=== PATIENT | female | born 1960 | race African-American/Black ===

== ENCOUNTER 2016-07-13 20:02 | Emergency (ER) | payer OTHER ==
[2016-07-13 20:14] VITALS: BP 154/85; BMI 29.7
[2016-07-13] MEDS ORDERED: ACETAMINOPHEN 325 MG TABLET (FP) PO ONE (20:59)
[2016-07-13] MEDS ORDERED: guaiFENesin/CODEINE 10 ML UNIT-DOSE CUPS PO ONE (20:59)
[2016-07-13] MEDS ORDERED: KETOROLAC TROMETHAMINE 60 MG/2 ML VIAL IM ONE (20:59)
--- NOTE | 2016-07-13 20:59 | PDOC ---
History of Present Illness - General Chief Complaint: Respiratory Stated Complaint: FLU LIKE SYMPTOMS Time Seen by Provider: 07/13/16 20:37 History Source: Patient Exam Limitations: No Limitations - History of Present Illness Initial Comments: CHIEF COMPLAINT: 56 y/o febrile female with PMH HTN, NIDDM, CAD with stents c/ o flu like symptoms since yesterday. HISTORY OF PRESENT ILLNESS: The patient states that her roommate came home with the flu 4 days ago. Yesterday at work the patient began having runny nose , body aches, dry cough and chills. Pt states fever started today, as well as posttussive chest discomfort. She denies earache, sore throat, n/v/d, abd pain , back pain. The patient hasn't taken anything for her symptoms because she didn't have anything. 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 Vital signs on arrival are notable for pulse of 96 secondary to temp of 100. REVIEW OF SYSTEMS: GENERAL/CONSTITUTIONAL: + fever/chills. No weakness. No weight change. +body aches HEAD, EYES, EARS, NOSE AND THROAT: No change in vision. No ear pain or discharge. No sore throat. +runny nose CARDIOVASCULAR: +posttussive chest discomfot. No shortness of breath. RESPIRATORY: +dry cough. No cough, wheezing, or hemoptysis. GASTROINTESTINAL: No nausea, vomiting, diarrhea. GENITOURINARY: No dysuria, frequency, or change in urination. MUSCULOSKELETAL: No joint or muscle swelling or pain. No neck or back pain. SKIN: No rash or easy bruising. NEUROLOGIC: No headache, vertigo, loss of consciousness, or loss of sensation. PHYSICAL EXAM: GENERAL: The patient is awake, alert, and fully oriented, non toxic but ill appearing, with congested sounding cough. HEAD: Normal with no signs of trauma. ENT: Pupils equal, round and reactive to light, extraocular movements intact, sclera anicteric, conjunctiva clear. Neck supple. No tonsilar erythema or edema. +nasal congestion. LUNGS: Clear to auscultation bilaterally. Normal excursion. No respiratory distress or use of accessory muscles. CHEST WALL: Reproduction of chest pain with palpation of anterior chest wall. CV: RRR, S1/S2, no MRG. Cap refill < 2 sec. ABDOMEN: Soft, non-distended, non-tender even to deep palpation, no hepatomegaly or splenomegaly, no masses. EXTREMITIES: Normal range of motion, no edema. NEUROLOGICAL: Normal speech, normal gait. CN II-XII grossly intact. PSYCH: Normal mood, normal affect. SKIN: Warm, dry, normal turgor, no rashes or lesions noted. Past History - Past Medical History Allergies/Adverse Reactions: Allergies Allergy/AdvReac Type Severity Reaction Status Date / Time No Known Allergies Allergy Verified 07/13/16 20:08 Home Medications: Ambulatory Orders Amlodipine Besylate [Norvasc -] 10 mg PO DAILY 01/18/12 Lisinopril [Prinivil] 10 mg PO DAILY 01/18/12 Metformin HCl [Glucophage] 1,000 mg PO BID 01/18/12 Aspirin [ASA -] 81 mg PO DAILY 04/24/15 Atorvastatin Ca [Lipitor] 80 mg PO HS 04/24/15 Carvedilol [Coreg -] 6.25 mg PO BID 04/24/15 Clopidogrel Bisulfate [Plavix -] 75 mg PO DAILY 04/24/15 Glipizide Xl [Glucotrol Xl -] 10 mg PO DAILY tab.er.24 04/24/15 Repaglinide [Prandin] 2 mg PO TID 04/24/15 Sennosides [Senna] 17.2 mg PO DAILY PRN 04/24/15 Cephalexin [Keflex] 500 mg PO BID #14 capsule 01/30/16 Meclizine HCl [Antivert -] 25 mg PO TID PRN #30 tablet 02/02/16 Cephalexin Monohydrate [Keflex -] 500 mg PO BID #14 capsule 04/28/16 Guaifenesin AC [Robitussin AC] 10 ml PO TID #1 bottle MDD 30mL 07/13/16 Oseltamivir Phosphate [Tamiflu] 75 mg PO BID #10 capsule 07/13/16 Anemia: No Asthma: No Cardiac Disorders: Yes (stents) Diabetes: Yes GI Disorders: Yes (peptic ulcer) HTN: Yes Hypercholesterolemia: No - Surgical History Abdominal Surgery: No Cardiac Surgery: Yes (stents) - Immunization History Immunization Up to Date: Yes - Psycho/Social/Smoking Cessation Hx Anxiety: No Suicidal Ideation: No Smoking Status: Yes Smoking History: Never smoked Have you smoked in the past 12 months: No Number of Cigarettes Smoked Daily: 0 If you are a former smoker, when did you quit?: 10/2014 Information on smoking cessation initiated: No Hx Alcohol Use: No Drug/Substance Use Hx: No Substance Use Type: None Hx Substance Use Treatment: No *Physical Exam - Vital Signs Last Vital Signs Temp Pulse Resp BP Pulse Ox 100.0 F H 96 H 20 154/85 98 07/13/16 20:08 07/13/16 20:08 07/13/16 20:08 07/13/16 20:08 07/13/16 20:08 Medical Decision Making - Medical Decision Making A/P: 56 y/o febrile female who looks like she has the flu. Plan is as follows: 1. PO tylenol 2. IM toradol 3. Robitussin AC 4. Influenza swab Influenza A - positive Will give first dose of tamiflu in the ER Pt's temp and HR is down Will d/c to home with tamiflu and robitussin AC. Suggested she take tylenol for fever every 4 hours and motrin for body aches every 6 hours, drink plenty of fluids and rest. instructed her to f/u with her doctor within 1 week and return to the ER with any worsening or concerning symptoms. The patient verbalizes understanding of all instructions, has no further questions and is awaiting discharge. *DC/Admit/Observation/Transfer Diagnosis at time of Disposition: Influenza A - Discharge Dispostion Disposition: HOME Condition at time of disposition: Improved - Referrals Referrals: Alvarado Nj MD [Primary Care Provider] - Call tomorrow - Patient Instructions Printed Discharge Instructions: DI for Influenza -- Adult Additional Instructions: Discharge Instructions: -Take 650mg of Tylenol every 4 hours for fever -Take 600mg of Motrin every 6 hours for body aches -Take Tamiflu as prescribed for flu -Drink plenty of fluids and get rest -Follow up with your doctor within 1 week -Return to the ER with any worsening or concerning symptoms - Post Discharge Activity Work/School Note: Back to Work
[2016-07-13] MEDS ORDERED: guaiFENesin/D-METHORPHAN HB 10 ML UNIT-DOSE CUPS ONE (21:03)
[2016-07-13] MEDS ORDERED: ACETAMINOPHEN 325 MG TABLET (FP) ONE (21:03)
[2016-07-13] MEDS ORDERED: KETOROLAC TROMETHAMINE 60 MG/2 ML VIAL ONE (21:03)
[2016-07-13] MEDS ORDERED: guaiFENesin/CODEINE 10 ML UNIT-DOSE CUPS ONE (21:22)
[2016-07-13] MEDS ORDERED: OSELTAMIVIR PHOSPHATE 75 MG CAPSULE PO ONE (21:36)
[2016-07-13 21:50] VITALS: PULSE 90; TEMP 99.8
== END 2016-07-13 21:51 | disposition home or self-care (01) ==
LOC: JERFT 20:02
PROC: 3E0233Z Introduction of Anti-inflammatory into Muscle, Percutaneous Approach (ICD-10-PCS; principal; 2016-07-13)
DX: J09.X2 Influenza due to identified novel influenza A virus with other respiratory manifestations (principal); I25.10 Atherosclerotic heart disease of native coronary artery without angina pectoris; I10 Essential (primary) hypertension; Z95.5 Presence of coronary angioplasty implant and graft; E11.9 Type 2 diabetes mellitus without complications; Z79.84 Long term (current) use of oral hypoglycemic drugs
CPT/HCPCS: 87804; 99281-25

== ENCOUNTER 2016-08-28 13:55 | Emergency (ER) | payer OTHER ==
--- NOTE | 2016-08-28 14:16 | PDOC ---
History of Present Illness <Kirby Francis - Last Filed: 08/28/16 14:38> - General History Source: Patient Exam Limitations: No Limitations - History of Present Illness Initial Comments: 08/28/16 16:46 The patient is a 56 year old female with a significant past medical history of CAD with stents, hypertension, and hypercholesterolemia, presenting to the Emergency Department with high blood pressure. She reports that she had her hypertension medication switched 2 days ago, as her bp at the her feed research aide s office was 180/110. She reports that this morning she went to the pharmacy and checked her bp to be 200/101. Her bp at triage was 160/100. She states that she is careful with her diet, and avoids sodium. The patient denies chest pain, palpitations, and diaphoresis. Patient denies nausea/vomiting, RUSS, fever, cough , and chills. Patient denies dizziness, headache, or blurry vision. <Karon Baker - Last Filed: 08/28/16 16:47> - General Chief Complaint: Blood Pressure Problem Stated Complaint: CHECK HER B/P Time Seen by Provider: 08/28/16 14:13 Past History - Past Medical History Anemia: No Asthma: No Cardiac Disorders: Yes (stents 3) Diabetes: Yes GI Disorders: Yes (peptic ulcer) HTN: Yes Hypercholesterolemia: No - Surgical History Abdominal Surgery: No Cardiac Surgery: Yes (stents) - Immunization History Immunization Up to Date: Yes - Psycho/Social/Smoking Cessation Hx Anxiety: No Suicidal Ideation: No Smoking Status: Yes Smoking History: Never smoked Have you smoked in the past 12 months: No Number of Cigarettes Smoked Daily: 0 If you are a former smoker, when did you quit?: 10/2014 Information on smoking cessation initiated: No Hx Alcohol Use: No Drug/Substance Use Hx: No Substance Use Type: None Hx Substance Use Treatment: No <Kirby Francis - Last Filed: 08/28/16 14:38> <Karon Baker - Last Filed: 08/28/16 16:47> - Past Medical History Allergies/Adverse Reactions: Allergies Allergy/AdvReac Type Severity Reaction Status Date / Time No Known Allergies Allergy Verified 08/28/16 14:02 Home Medications: Ambulatory Orders Amlodipine Besylate [Norvasc -] 10 mg PO DAILY 01/18/12 Lisinopril [Prinivil] 10 mg PO DAILY 01/18/12 Metformin HCl [Glucophage] 1,000 mg PO BID 01/18/12 Aspirin [ASA -] 81 mg PO DAILY 04/24/15 Atorvastatin Ca [Lipitor] 80 mg PO HS 04/24/15 Carvedilol [Coreg -] 6.25 mg PO BID 04/24/15 Clopidogrel Bisulfate [Plavix -] 75 mg PO DAILY 04/24/15 Glipizide Xl [Glucotrol Xl -] 10 mg PO DAILY tab.er.24 04/24/15 Repaglinide [Prandin] 2 mg PO TID 04/24/15 Sennosides [Senna] 17.2 mg PO DAILY PRN 04/24/15 Cephalexin [Keflex] 500 mg PO BID #14 capsule 01/30/16 Meclizine HCl [Antivert -] 25 mg PO TID PRN #30 tablet 02/02/16 Cephalexin Monohydrate [Keflex -] 500 mg PO BID #14 capsule 04/28/16 Guaifenesin AC [Robitussin AC] 10 ml PO TID #1 bottle MDD 30mL 07/13/16 Oseltamivir Phosphate [Tamiflu] 75 mg PO BID #10 capsule 07/13/16 Review of Systems - Review of Systems Able to Perform ROS?: Yes Comments:: 08/28/16 16:46 CONSTITUTIONAL: Reports: + High blood pressure, No reported: Fever, Chills, Diaphoresis, Generalized Weakness, Malaise, Loss of Appetite HEENT: No reported: Rhinorrhea, Nasal Congestion, Throat Pain, Throat Swelling, Difficulty Swallowing, Mouth Swelling, Ear Pain, Eye Pain, Visual Changes CARDIOVASCULAR: No reported: Chest Pain, Syncope, Palpitations, Irregular Heart Rate, Lightheadedness, Peripheral Edema RESPIRATORY: No reported: Cough, Shortness of Breath, SOB with Exertion, Orthopnea, Wheezing , Stridor, Hemoptysis GASTROINTESTINAL: No reported: Abdominal pain, Abdominal Distension, Nausea, Vomiting, Diarrhea, Constipation, Melena, Hematochezia GENITOURINARY: No reported: Dysuria, Frequency, Urgency, Hesitancy, Flank Pain, Genital Pain MUSCULOSKELETAL: No reported: Myalgia, Arthralgia, Joint Swelling, Back pain, Neck Pain SKIN: No reported: Rash, Itching, Pallor HEMATOLOGIC/IMMUNOLOGIC: No reported: Easy Bleeding, Easy Bruising, Lymphadenopathy, Frequent infections ENDOCRINE: No reported: Unexplained Weight Gain, Unexplained Weight Loss, Heat Intolerance , Cold Intolerance NEUROLOGIC: No reported: Headache, Focal Weakness, Paresthesias, Vertigo, Unsteady Gait, Seizure, Mental Status Changes, Incontinence PSYCHIATRIC: No reported: Anxiety, Depression <Karon Baker - Last Filed: 08/28/16 16:47> *Physical Exam - Vital Signs Last Vital Signs Temp Pulse Resp BP Pulse Ox 98.4 F 93 H 18 164/86 100 08/28/16 13:57 08/28/16 13:57 08/28/16 13:57 08/28/16 13:57 08/28/16 13:57 <Kirby Francis - Last Filed: 08/28/16 14:38> - Vital Signs Last Vital Signs Temp Pulse Resp BP Pulse Ox 98.4 F 78 16 156/81 100 08/28/16 13:57 08/28/16 15:12 08/28/16 15:12 08/28/16 15:12 08/28/16 15:12 - Physical Exam Comments: 08/28/16 16:47 GENERAL: The patient is awake, alert, and fully oriented, Nontoxic - in no acute distress. HEAD: Normocephalic, atraumatic. EYES: extraocular movements intact, sclera anicteric, conjunctiva clear. ENT: Normal voice, Moist mucous membranes. NECK: Normal range of motion, No JVD LUNGS: Breath sounds equal, clear to auscultation bilaterally. No wheezes, no rhonchi, no rales. HEART: Regular rate and rhythm, normal S1 and S2 without murmur, rub or gallop. ABDOMEN: Soft, nontender, normoactive bowel sounds. No guarding, no rebound. No masses. No CVA tenderness EXTREMITIES: Normal range of motion, no edema. No clubbing or cyanosis. No cords , erythema, or tenderness. NEUROLOGICAL: No facial asymmetry, Normal speech, normal gait. PSYCH: Normal mood, normal affect. SKIN: Warm, Dry, normal turgor. <Karon Baker - Last Filed: 08/28/16 16:47> Medical Decision Making - Medical Decision Making 08/28/16 14:31 56y F hx of cad, htn, hl, dm, presents with complaint of hypertension - pt with recent change in her BP meds 2 days ago, she went to the pharmacy to check her BP and was told it was 200/110 so she came to the ED - pt is otherwise asypmtomatic without any headache/dizziness/vision changes/cp/sob/leg swelling. pts bp here noted in the 160s spb. will Dc the pt to fu with her PMD for recurrent bp monitoring. will defer labs/workup as pt is otherwise asypmtomatic and patient has close follow up with her feed research aide and pcp return precautions were discussed I discussed the physical exam findings, ancillary test results and final diagnoses with the patient. I answered all of the patient's questions. The patient was satisfied with the care received and felt comfortable with the discharge plan and treatment plan. The patient will call their primary care physician within 24 hours to arrange follow-up and will return to the Emergency Department with any new, persistent or worsening symptoms. <Kirby Francis - Last Filed: 08/28/16 14:38> *DC/Admit/Observation/Transfer - Discharge Dispostion Admit: No <Kirby Francis - Last Filed: 08/28/16 14:38> - Attestations Scribe Attestion: 08/28/16 16:47 Documentation prepared by Karon Baker, acting as medical or surgical instrument maker for Kirby Francis MD. <Karon Baker - Last Filed: 08/28/16 16:47> Diagnosis at time of Disposition: High blood pressure Qualifiers: Hypertension type: essential hypertension Qualified Code(s): I10 - Essential ( primary) hypertension - Discharge Dispostion Disposition: HOME Condition at time of disposition: Improved - Referrals Referrals: Alvarado Nj MD [Primary Care Provider] - - Patient Instructions Printed Discharge Instructions: DI for High Blood Pressure, How to Monitor Your Blood Pressure at Home Additional Instructions: Return to the emergency department immediately with ANY new, persistent or worsening symptoms including any headache, dizziness, shortness of breath, nausea, vomiting or any other concerns. Continue taking your medications as prescribed and follow up with your primary care doctor for reevaluation of your blood pressure next week. You MUST call and follow up with your doctor tomorrow for further evaluation of your symptoms. Results were discussed with you. Please make sure your doctor reviews the results of your emergency evaluation. Print Language: SAUDI ARABIAN
[2016-08-28 14:20] VITALS: TEMP 98.4; BMI 34.2
[2016-08-28 15:13] VITALS: BP 156/81; PULSE 78
== END 2016-08-28 15:13 | disposition home or self-care (01) ==
LOC: JER 13:55
DX: I10 Essential (primary) hypertension (principal); I25.10 Atherosclerotic heart disease of native coronary artery without angina pectoris; Z95.5 Presence of coronary angioplasty implant and graft; Z79.84 Long term (current) use of oral hypoglycemic drugs; E78.00 Pure hypercholesterolemia, unspecified
CPT/HCPCS: 99281-25

== ENCOUNTER 2016-11-09 17:25 | Emergency (ER) | payer OTHER ==
[2016-11-09 17:34] VITALS: BP 165/101; PULSE 76; TEMP 98; BMI 32.8
--- NOTE | 2016-11-09 17:51 | PDOC ---
History of Present Illness - General Chief Complaint: Wound Infection Stated Complaint: INFECTION Time Seen by Provider: 11/09/16 17:40 History Source: Patient Exam Limitations: No Limitations - History of Present Illness Initial Comments: 11/09/16 17:44 My Chief Complaint: left second toenail pain History of present illness:The patient is a 56 year old female with a significant past medical history of CAD with stents, NIDDM, hypertension, and hypercholesterolemia, presenting to the Emergency Department with tenderness of left index toenail after cutting it 2 weeks ago. Pt. 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 Patient denies any discharge from toenail or any redness or increased warmth of toe. 11/09/16 17:57 11/09/16 17:58 Timing/Duration: intermittent (when she hits left 2nd toenail only ) Severity: mild Associated Symptoms: reports: denies symptoms Past History - Past Medical History Allergies/Adverse Reactions: Allergies Allergy/AdvReac Type Severity Reaction Status Date / Time No Known Allergies Allergy Verified 11/09/16 17:30 Home Medications: Ambulatory Orders Amlodipine Besylate [Norvasc -] 10 mg PO DAILY 01/18/12 Lisinopril [Prinivil] 10 mg PO DAILY 01/18/12 Metformin HCl [Glucophage] 1,000 mg PO BID 01/18/12 Aspirin [ASA -] 81 mg PO DAILY 04/24/15 Atorvastatin Ca [Lipitor] 80 mg PO HS 04/24/15 Carvedilol [Coreg -] 6.25 mg PO BID 04/24/15 Clopidogrel Bisulfate [Plavix -] 75 mg PO DAILY 04/24/15 Glipizide Xl [Glucotrol Xl -] 10 mg PO DAILY tab.er.24 04/24/15 Repaglinide [Prandin] 2 mg PO TID 04/24/15 Sennosides [Senna] 17.2 mg PO DAILY PRN 04/24/15 Cephalexin [Keflex] 500 mg PO BID #14 capsule 01/30/16 Meclizine HCl [Antivert -] 25 mg PO TID PRN #30 tablet 02/02/16 Cephalexin Monohydrate [Keflex -] 500 mg PO BID #14 capsule 04/28/16 Guaifenesin AC [Robitussin AC] 10 ml PO TID #1 bottle MDD 30mL 07/13/16 Oseltamivir Phosphate [Tamiflu] 75 mg PO BID #10 capsule 07/13/16 Anemia: No Asthma: No Cardiac Disorders: Yes (stents 3) Diabetes: Yes (niddm) GI Disorders: Yes (peptic ulcer) HTN: Yes Hypercholesterolemia: No - Surgical History Abdominal Surgery: No Cardiac Surgery: Yes (stents) - Immunization History Immunization Up to Date: Yes - Psycho/Social/Smoking Cessation Hx Anxiety: No Suicidal Ideation: No Smoking Status: Yes Smoking History: Never smoked Have you smoked in the past 12 months: No Number of Cigarettes Smoked Daily: 0 If you are a former smoker, when did you quit?: 10/2014 Information on smoking cessation initiated: No Hx Alcohol Use: No Drug/Substance Use Hx: No Substance Use Type: None Hx Substance Use Treatment: No Review of Systems - Review of Systems Able to Perform ROS?: Yes Constitutional: No: Symptoms Reported HEENTM: No: Symptoms Reported Respiratory: No: Symptoms reported Cardiac (ROS): No: Symptoms Reported ABD/GI: No: Symptoms Reported : No: Symptoms Reported Musculoskeletal: No: Symptoms Reported Integumentary: Yes: Other (left index toenail tenderness) Neurological: No: Symptoms reported *Physical Exam - Vital Signs Last Vital Signs Temp Pulse Resp BP Pulse Ox 98.0 F 76 18 165/101 100 11/09/16 17:31 11/09/16 17:31 11/09/16 17:31 11/09/16 17:31 11/09/16 17:31 - Physical Exam General Appearance: Yes: Appropriately Dressed Respiratory/Chest: positive: Lungs Clear, Normal Breath Sounds. negative: Chest Tender, Respiratory Distress Cardiovascular: positive: Regular Rhythm, Regular Rate, S1, S2 Vascular Pulses: Doralis-Pedis (L): 4+ Extremity: positive: Normal Capillary Refill, Normal Inspection, Normal Range of Motion (left 2nd toenail ) Integumentary: positive: Other (left 2nd toenail thick tender to toe, no surrounding edema or erythema) Neurologic: positive: Alert, Normal Response Medical Decision Making - Medical Decision Making 11/09/16 17:58 The patient is a 56 year old female with a significant past medical history of CAD with stents, NIDDM, hypertension, and hypercholesterolemia, presenting to the Emergency Department with tenderness of left index toenail after cutting it 2 weeks ago. Pt. 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 Patient denies any discharge from toenail or any redness or increased warmth of toe. 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 as soon as possible *DC/Admit/Observation/Transfer Diagnosis at time of Disposition: Toenail fungus Toenail bruise Qualifiers: Encounter type: initial encounter Laterality: left Qualified Code(s): S90.222A - Contusion of left lesser toe(s) with damage to nail, initial encounter - Discharge Dispostion Disposition: HOME Condition at time of disposition: Stable - Referrals Referrals: Alvarado Nj MD [Primary Care Provider] - Martin Young MD [Staff Physician] - - Patient Instructions Additional Instructions: Follow up with supervisor engine assembly as soon as possible Return to emergency room if any redness around the toenail or swelling or discharge Avoid hitting toenail Patient voiced understanding of discharge instructions and all questions were answered
== END 2016-11-09 18:13 | disposition home or self-care (01) ==
LOC: JERFT 17:25
DX: S90.222A Contusion of left lesser toe(s) with damage to nail, initial encounter (principal); B35.1 Tinea unguium; I25.10 Atherosclerotic heart disease of native coronary artery without angina pectoris; Z98.61 Coronary angioplasty status; E11.9 Type 2 diabetes mellitus without complications; Z79.84 Long term (current) use of oral hypoglycemic drugs; E78.00 Pure hypercholesterolemia, unspecified
CPT/HCPCS: 99281-25

== ENCOUNTER 2016-12-19 14:09 | Emergency (ER) | payer OTHER ==
[2016-12-19 14:20] VITALS: BP 155/84; PULSE 83; TEMP 98; BMI 34.0
[2016-12-19 15:29] LABS: URINE APPEARANCE CLOUDY; URINE BILIRUBIN NEGATIVE (NEGATIVE); URINE COLOR YELLOW; URINE GLUCOSE (UA) NEGATIVE (NEGATIVE); URINE KETONE NEGATIVE (NEGATIVE); URINE NITRITE NEGATIVE (NEGATIVE); URINE UROBILINOGEN NEGATIVE E.U./dl (0.2-1.0)
[2016-12-19 15:33] LABS: URINE BLOOD 1+ (NEGATIVE); URINE LEUK ESTERASE 3+ (NEGATIVE); URINE PROTEIN 2+ (NEGATIVE)
[2016-12-19 15:35] LABS: URINE BACTERIA MANY /hpf (NONE SEEN); URINE HYALINE CAST 4 /lpf; URINE MUCUS RARE; URINE RBC 8 /hpf (0-3); URINE WBC 143 /hpf (3-5)
[2016-12-19] MEDS ORDERED: CEPHALEXIN MONOHYDRATE 500 MG CAPSULE (UD) PO ONE (15:51)
--- NOTE | 2016-12-19 15:54 | PDOC ---
History of Present Illness - General Chief Complaint: Urinary Problem Stated Complaint: UTI Time Seen by Provider: 12/19/16 15:09 History Source: Patient Exam Limitations: No Limitations - History of Present Illness Travel History: No Initial Comments: 12/19/16 15:49 Since here with complaints of pain, dysuria, frequency and feelings of recurrent urinary tract infection. States had one a few months ago and was treated with medication but does not remember the name of the antibiotic. Denies fevers, denies back pain, denies any bleeding in urine. No vaginal or bowel problems. Timing/Duration: reports: getting worse Quality: reports: mild, moderate Abdominal Pain Onset Location: reports: suprapubic Pain Radiation: reports: no radiation Aggravating Factors: improves with: None Past History - Travel Traveled outside of the country in the last 30 days: No Close contact w/someone who was outside of country & ill: No - Past Medical History Allergies/Adverse Reactions: Allergies Allergy/AdvReac Type Severity Reaction Status Date / Time No Known Allergies Allergy Verified 12/19/16 14:13 Home Medications: Ambulatory Orders Amlodipine Besylate [Norvasc -] 10 mg PO DAILY 01/18/12 Lisinopril [Prinivil] 10 mg PO DAILY 01/18/12 Metformin HCl [Glucophage] 1,000 mg PO BID 01/18/12 Aspirin [ASA -] 81 mg PO DAILY 04/24/15 Atorvastatin Ca [Lipitor] 80 mg PO HS 04/24/15 Carvedilol [Coreg -] 6.25 mg PO BID 04/24/15 Clopidogrel Bisulfate [Plavix -] 75 mg PO DAILY 04/24/15 Glipizide Xl [Glucotrol Xl -] 10 mg PO DAILY tab.er.24 04/24/15 Repaglinide [Prandin] 2 mg PO TID 04/24/15 Sennosides [Senna] 17.2 mg PO DAILY PRN 04/24/15 Cephalexin [Keflex] 500 mg PO BID #14 capsule 01/30/16 Meclizine HCl [Antivert -] 25 mg PO TID PRN #30 tablet 02/02/16 Cephalexin Monohydrate [Keflex -] 500 mg PO BID #14 capsule 04/28/16 Guaifenesin AC [Robitussin AC] 10 ml PO TID #1 bottle MDD 30mL 07/13/16 Oseltamivir Phosphate [Tamiflu] 75 mg PO BID #10 capsule 07/13/16 Cephalexin Monohydrate [Keflex -] 500 mg PO Q8H #21 capsule 12/19/16 Anemia: No Asthma: No Cardiac Disorders: Yes (stents 3) Diabetes: Yes (niddm) GI Disorders: Yes (peptic ulcer) HTN: Yes Hypercholesterolemia: No - Surgical History Abdominal Surgery: No Cardiac Surgery: Yes (stents) - Immunization History Immunization Up to Date: Yes - Psycho/Social/Smoking Cessation Hx Anxiety: No Suicidal Ideation: No Smoking Status: Yes Smoking History: Never smoked Have you smoked in the past 12 months: No Number of Cigarettes Smoked Daily: 0 If you are a former smoker, when did you quit?: 10/2014 Hx Alcohol Use: No Drug/Substance Use Hx: No Substance Use Type: None Hx Substance Use Treatment: No Abd/GI Specific PMHX - Complaint Specific PMHX Colitis: No Diverticulitis: No Gall Bladder Disease: No GERD: No Hepatitis: No Irritable Bowel Synd (IBS): No Pancreatitis: No GI Ulcer Disease: No Review of Systems - Review of Systems Able to Perform ROS?: Yes Is the patient limited Wolof proficient: Yes Constitutional: Yes: Symptoms Reported, See HPI, Malaise. No: Fever HEENTM: No: Symptoms Reported Respiratory: Yes: Symptoms reported : Yes: Symptoms Reported, See HPI, Burning, Dysuria, Frequency Integumentary: Yes: Symptoms Reported, See HPI All Other Systems: Reviewed and Negative *Physical Exam - Vital Signs Last Vital Signs Temp Pulse Resp BP Pulse Ox 98.0 F 83 20 155/84 98 12/19/16 14:10 12/19/16 14:10 12/19/16 14:10 12/19/16 14:10 12/19/16 14:10 - Physical Exam General Appearance: Yes: Nourished, Appropriately Dressed, Apparent Distress HEENT: positive: JOURDAN, Normal ENT Inspection, TMs Normal, Pharynx Normal Neck: positive: Tender, Supple. negative: Lymphadenopathy (R) Respiratory/Chest: positive: Lungs Clear Gastrointestinal/Abdominal: positive: Tender, Soft, Other (suprapubic ). negative: Distended, Guarding, Rebound Musculoskeletal: positive: Normal Inspection. 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 NML intact, Fully Oriented, Alert, Normal Mood/ Affect, Normal Response, Motor Strength 11/05 ED Treatment Course - ADDITIONAL ORDERS Additional order review: Laboratory Results 12/19/16 12/19/16 15:20 15:20 Urine Color Yellow Urine Appearance Cloudy Urine pH 5.0 Urine Protein 2+ H Urine Glucose (UA) Negative Urine Ketones Negative Urine Blood 1+ H Urine Nitrite Negative Urine Bilirubin Negative Urine Urobilinogen Negative Ur Leukocyte Esterase 3+ H Urine RBC 8 Urine WBC 143 Ur Epithelial Cells Rare Urine Bacteria Many Hyaline Casts 4 Urine Mucus Rare Urine HCG, Qual Negative *DC/Admit/Observation/Transfer Diagnosis at time of Disposition: UTI (urinary tract infection) Qualifiers: Urinary tract infection type: acute cystitis Hematuria presence: without hematuria Qualified Code(s): N30.00 - Acute cystitis without hematuria - Discharge Dispostion Disposition: HOME Condition at time of disposition: Stable Admit: No - Prescriptions Prescriptions: Cephalexin Monohydrate [Keflex -] 500 mg PO Q8H #21 capsule - Patient Instructions Printed Discharge Instructions: DI for Urinary Tract Infection (UTI) Additional Instructions: Rest, drink lots of fluids: Teas, water, soups Avoid contact with others until fevers and symptoms resolved Lots of handwashing and good hygiene Continue [id number] medications for symptomatic relief Tylenol or Motrin for fever and pain Continue all of antibiotics until completed Followup with private physician in one week for repeat urinalysis/reevaluation Return to emergency department for worsened symptoms, fevers, dehydration - Post Discharge Activity Work/School Note: Back to Work
[2016-12-19] MEDS ORDERED: CEPHALEXIN MONOHYDRATE 500 MG CAPSULE (UD) ONE (15:59)
--- NOTE | 2016-12-19 16:07 | PDOC ---
History of Present Illness - General Chief Complaint: Urinary Problem Stated Complaint: UTI Time Seen by Provider: 12/19/16 15:09 History Source: Patient Exam Limitations: No Limitations - History of Present Illness Travel History: No Past History - Past Medical History Allergies/Adverse Reactions: Allergies Allergy/AdvReac Type Severity Reaction Status Date / Time No Known Allergies Allergy Verified 12/19/16 14:13 Home Medications: Ambulatory Orders Amlodipine Besylate [Norvasc -] 10 mg PO DAILY 01/18/12 Lisinopril [Prinivil] 10 mg PO DAILY 01/18/12 Metformin HCl [Glucophage] 1,000 mg PO BID 01/18/12 Aspirin [ASA -] 81 mg PO DAILY 04/24/15 Atorvastatin Ca [Lipitor] 80 mg PO HS 04/24/15 Carvedilol [Coreg -] 6.25 mg PO BID 04/24/15 Clopidogrel Bisulfate [Plavix -] 75 mg PO DAILY 04/24/15 Glipizide Xl [Glucotrol Xl -] 10 mg PO DAILY tab.er.24 04/24/15 Repaglinide [Prandin] 2 mg PO TID 04/24/15 Sennosides [Senna] 17.2 mg PO DAILY PRN 04/24/15 Cephalexin [Keflex] 500 mg PO BID #14 capsule 01/30/16 Meclizine HCl [Antivert -] 25 mg PO TID PRN #30 tablet 02/02/16 Cephalexin Monohydrate [Keflex -] 500 mg PO BID #14 capsule 04/28/16 Guaifenesin AC [Robitussin AC] 10 ml PO TID #1 bottle MDD 30mL 07/13/16 Oseltamivir Phosphate [Tamiflu] 75 mg PO BID #10 capsule 07/13/16 Anemia: No Asthma: No Cardiac Disorders: Yes (stents 3) Diabetes: Yes (niddm) GI Disorders: Yes (peptic ulcer) HTN: Yes Hypercholesterolemia: No - Surgical History Abdominal Surgery: No Cardiac Surgery: Yes (stents) - Immunization History Immunization Up to Date: Yes - Psycho/Social/Smoking Cessation Hx Anxiety: No Suicidal Ideation: No Smoking Status: Yes Smoking History: Never smoked Have you smoked in the past 12 months: No Number of Cigarettes Smoked Daily: 0 If you are a former smoker, when did you quit?: 10/2014 Hx Alcohol Use: No Drug/Substance Use Hx: No Substance Use Type: None Hx Substance Use Treatment: No Abd/GI Specific PMHX - Complaint Specific PMHX Colitis: No Diverticulitis: No Gall Bladder Disease: No GERD: No Hepatitis: No Irritable Bowel Synd (IBS): No Pancreatitis: No GI Ulcer Disease: No *Physical Exam - Vital Signs Last Vital Signs Temp Pulse Resp BP Pulse Ox 98.0 F 83 20 155/84 98 12/19/16 14:10 12/19/16 14:10 12/19/16 14:10 12/19/16 14:10 12/19/16 14:10
== END 2016-12-19 16:03 | disposition home or self-care (01) ==
LOC: JERFT 14:09 → JER 14:09 → JERFT 16:03
DX: N30.00 Acute cystitis without hematuria (principal); B96.89 Other specified bacterial agents as the cause of diseases classified elsewhere; I25.10 Atherosclerotic heart disease of native coronary artery without angina pectoris; I10 Essential (primary) hypertension; Z95.5 Presence of coronary angioplasty implant and graft; E11.9 Type 2 diabetes mellitus without complications; Z79.84 Long term (current) use of oral hypoglycemic drugs; E78.00 Pure hypercholesterolemia, unspecified
CPT/HCPCS: 81003; 81015; 84703; 87086; 87186; 99281-25

== ENCOUNTER 2017-02-14 15:17 | Inpatient (IN) | payer OTHER ==
--- NOTE | 2017-02-14 15:50 | PDOC ---
History of Present Illness - General Chief Complaint: Pain Stated Complaint: CRAMPS IN FEET Time Seen by Provider: 02/14/17 15:31 History Source: Patient Exam Limitations: No Limitations - History of Present Illness Initial Comments: 02/14/17 15:45 56 yr female with c/o one week cramps in lower legs worse at night. Pt has been having cramps in her shins and feet , pt admits to wearing flat sandals and walking frequently around town. Pt has no numbness or tingling. Past History - Past Medical History Allergies/Adverse Reactions: Allergies Allergy/AdvReac Type Severity Reaction Status Date / Time No Known Allergies Allergy Verified 02/14/17 15:22 Home Medications: Ambulatory Orders Amlodipine Besylate [Norvasc -] 10 mg PO DAILY 01/18/12 Lisinopril [Prinivil] 10 mg PO DAILY 01/18/12 Metformin HCl [Glucophage] 1,000 mg PO BID 01/18/12 Aspirin [ASA -] 81 mg PO DAILY 04/24/15 Atorvastatin Ca [Lipitor] 80 mg PO HS 04/24/15 Carvedilol [Coreg -] 6.25 mg PO BID 04/24/15 Clopidogrel Bisulfate [Plavix -] 75 mg PO DAILY 04/24/15 Glipizide Xl [Glucotrol Xl -] 10 mg PO DAILY tab.er.24 04/24/15 Repaglinide [Prandin] 2 mg PO TID 04/24/15 Sennosides [Senna] 17.2 mg PO DAILY PRN 04/24/15 Meclizine HCl [Antivert -] 25 mg PO TID PRN #30 tablet 02/02/16 Guaifenesin AC [Robitussin AC] 10 ml PO TID #1 bottle MDD 30mL 07/13/16 Oseltamivir Phosphate [Tamiflu] 75 mg PO BID #10 capsule 07/13/16 Anemia: No Asthma: No Cardiac Disorders: Yes (stents 3) Diabetes: Yes (niddm) GI Disorders: Yes (peptic ulcer) HTN: Yes Hypercholesterolemia: No Other medical history: uti 12/18 - Surgical History Abdominal Surgery: No Cardiac Surgery: Yes (stents) - Immunization History Immunization Up to Date: Yes - Psycho/Social/Smoking Cessation Hx Anxiety: No Suicidal Ideation: No Smoking Status: Yes Smoking History: Never smoked Have you smoked in the past 12 months: No Number of Cigarettes Smoked Daily: 0 If you are a former smoker, when did you quit?: 10/2014 Hx Alcohol Use: No Drug/Substance Use Hx: No Substance Use Type: None Hx Substance Use Treatment: No *Physical Exam - Vital Signs Last Vital Signs Temp Pulse Resp BP Pulse Ox 98.3 F 98 H 18 181/89 100 02/14/17 15:22 02/14/17 15:22 02/14/17 15:22 02/14/17 15:22 02/14/17 15:22 - Physical Exam General Appearance: Yes: Nourished, Appropriately Dressed HEENT: positive: EOMI, JOURDAN, Normal ENT Inspection, TMs Normal, Pharynx Normal Neck: positive: Supple Respiratory/Chest: positive: Lungs Clear, Normal Breath Sounds Cardiovascular: positive: Regular Rhythm, Regular Rate Gastrointestinal/Abdominal: positive: Normal Bowel Sounds, Soft Lymphatic: negative: Adenopathy Musculoskeletal: positive: Normal Inspection. negative: CVA Tenderness, CVA Tenderness (R), CVA Tenderness (L) Extremity: positive: Normal Capillary Refill, Normal Inspection, Normal Range of Motion. negative: Tender Integumentary: positive: Normal Color, Dry, Warm Neurologic: positive: Fully Oriented, Alert, Normal Mood/Affect, Normal Response , Motor Strength 5/5. negative: Numbness, Sensory Deficit ED Treatment Course - LABORATORY CBC & Chemistry Diagram: 02/14/17 17:17 02/14/17 15:37 - Consult/PCP Time Called: 17:24 Medical Decision Making - Medical Decision Making 02/14/17 15:46 cc: lower leg to top of feet cramping worse at night relieved with massage pt wearing flip flops and sandals that have minimal sole and walking around the town a lot no trauma will check labs, potassium, magnesium , pt is a diabetic has no history of neuropathy pt has no back pain no nvd, c/o chills 02/14/17 15:51 02/14/17 16:46 will give fluids for elevated BS check cbc , UA urine culture elevated BUN creatine noted, elevated glucose will give IVF and consult PMD 02/14/17 17:21 paged covering for for possible admission 02/14/17 17:22 02/14/17 17:24 02/14/17 17:25 02/14/17 17:34 second page to for call back 02/14/17 17:47 spoke to will admit pt to med surg. case discussed and pt to be admitted. spoke to in the main ER and is aware of the pt being admitted. 02/14/17 18:08 *DC/Admit/Observation/Transfer Diagnosis at time of Disposition: Acute hyperglycemia UTI (urinary tract infection) Qualifiers: Urinary tract infection type: acute cystitis Hematuria presence: without hematuria Qualified Code(s): N30.00 - Acute cystitis without hematuria - Discharge Dispostion Condition at time of disposition: Fair Admit: Yes - Referrals Referrals: Alvarado Nj MD [Primary Care Provider] -
[2017-02-14 16:14] LABS: ALBUMIN 3.2 g/dl (3.4-5.0); ALK PHOS 90 U/L (45-117); ANION GAP 10 (8-16); BILIRUBIN,TOTAL 0.3 mg/dL (0.2-1.0); CO2 28 mmol/L (21-32); CREATININE 1.2 mg/dL (0.55-1.02); MAGNESIUM 1.9 mg/dL (1.8-2.4); SGOT/AST 17 U/L (15-37); SGPT/ALT 32 U/L (12-78); TOT PROT 6.8 g/dl (6.4-8.2)
[2017-02-14] MEDS ORDERED: GABAPENTIN 300 MG CAPSULE (FP) PO ONE (16:26)
[2017-02-14 16:35] LABS: GLUCOSE,RANDOM 459 mg/dL (74-106)
[2017-02-14] MEDS ORDERED: GABAPENTIN 100 MG CAPSULE (FP) ONE (16:36)
[2017-02-14] MEDS ORDERED: SODIUM CHLORIDE 0.9% 500 ML INFUS.BAG IV ONE (16:42)
[2017-02-14 16:59] LABS: URINE APPEARANCE SLCLOUDY; URINE BILIRUBIN NEGATIVE (NEGATIVE); URINE BLOOD NEGATIVE (NEGATIVE); URINE COLOR LTYELLOW; URINE GLUCOSE (UA) 3+ (NEGATIVE); URINE KETONE NEGATIVE (NEGATIVE); URINE NITRITE POSITIVE (NEGATIVE); URINE UROBILINOGEN NEGATIVE mg/dL (0.2-1.0)
[2017-02-14 17:06] LABS: URINE LEUK ESTERASE 2+ (NEGATIVE); URINE PROTEIN 1+ (NEGATIVE)
[2017-02-14] MEDS ORDERED: NITROFURANTOIN MACROCRYSTAL 50 MG CAPSULE (FP) PO STA (17:11)
[2017-02-14] MEDS ORDERED: NITROFURANTOIN MACROCRYSTAL 50 MG CAPSULE (FP) ONE (17:16)
[2017-02-14 17:19] LABS: URINE BACTERIA RARE /hpf (NONE SEEN); URINE RBC 3 /hpf (0-3); URINE WBC 61 /hpf (3-5)
[2017-02-14] MEDS ORDERED: CEFTRIAXONE 1 GM in DEXTROSE 5%-WATER - 50 ML IVPB ONE (17:20)
[2017-02-14 17:23] LABS: BASOPHIL 1.1 % (0-2.0); EOSINOPHIL 1.9 % (0-4.5); MCH 26.8 pg (25.7-33.7); MCHC 32.6 g/dl (32.0-36.0); MEAN CELL VOLUME 82.1 fl (80-96); MEAN PLT VOLUME 10.7 fl (7.5-11.1); NEUTROPHILS 55.5 % (42.8-82.8); PLATELET COUNT 237 K/MM3 (134-434); WHITE BLOOD COUNT 5.2 K/mm3 (4.0-10.0)
[2017-02-14] MEDS ORDERED: cefTRIAXone SODIUM 1 GM VIAL ONE (17:43)
[2017-02-14] MEDS: ATORVASTATIN CA 80 MG TABLET (FP) PO SCH (21:46)
[2017-02-14] MEDS: amLODIPine BESYLATE 10 MG TABLET (FP) PO SCH (21:46)
[2017-02-14] MEDS ORDERED: INSULIN (NOVOLOG) ASPART 100 UNITS/ML 10ML VIAL ONE (21:49)
[2017-02-14] MEDS: CARVEDILOL 6.25 MG TABLET (FP) PO SCH (21:51)
[2017-02-14] MEDS: SODIUM CHLORIDE 0.45% 1,000 ML IV SCH (21:51)
[2017-02-14] MEDS: INSULIN SLIDING SCALE (NOVOLOG) 1 VIAL SQ SCH (21:52)
[2017-02-15] MEDS ORDERED: KETOROLAC TROMETHAMINE 30 MG/1 ML VIAL IVPUSH ONE (00:30)
--- NOTE | 2017-02-15 01:10 | HP ---
Admitting History and Physical - Admission History of Present Illness: Pt is a 56 y/o female with PMH significant for HTN, CAD, diabetes. Pt presented to the ER bc of multiple complaints including one week of cramping in lower legs worse at night. Pt also c/o dysuria w/ increased urinary frequency and she states that her glucose at home has progressively increased into 200' s.. Pt denied any fever/chills. In the ER pt found to have normal wbc. - Past Medical History Cardiovascular: Yes: CAD (s/p NSTEMI and 2 blanca pci 03/2015), HTN, Hyperlipdemia , [place] Gastrointestinal: Yes: GERD Psych: Yes: Anxiety, Depression Endocrine: Yes: Diabetes Mellitus - Smoking History Smoking history: Never smoked Have you smoked in the past 12 months: No Aproximately how many cigarettes per day: 0 If you are a former smoker, when did you quit?: 10/2014 - Alcohol/Substance Use Hx Alcohol Use: No Home Medications - Allergies Allergies/Adverse Reactions: Allergies Allergy/AdvReac Type Severity Reaction Status Date / Time No Known Allergies Allergy Verified 02/14/17 15:22 - Home Medications Home Medications: Ambulatory Orders Amlodipine Besylate [Norvasc -] 10 mg PO DAILY 01/18/12 Lisinopril [Prinivil] 10 mg PO DAILY 01/18/12 Metformin HCl [Glucophage] 1,000 mg PO BID 01/18/12 Aspirin [ASA -] 81 mg PO DAILY 04/24/15 Atorvastatin Ca [Lipitor] 80 mg PO HS 04/24/15 Carvedilol [Coreg -] 6.25 mg PO BID 04/24/15 Clopidogrel Bisulfate [Plavix -] 75 mg PO DAILY 04/24/15 Repaglinide [Prandin] 2 mg PO TID 04/24/15 Family Disease History - Family Disease History Family History: Unremarkable Review of Systems - Review of Systems Constitutional: reports: Loss of Appetite, Weakness Eyes: reports: No Symptoms HENT: reports: No Symptoms Neck: reports: Other Respiratory: reports: No Symptoms Gastrointestinal: reports: No Symptoms Physical Examination Vital Signs: Vital Signs Temperature 98.3 F 02/14/17 15:22 Pulse Rate 78 02/14/17 19:40 Respiratory Rate 22 02/14/17 19:40 Blood Pressure 153/94 02/14/17 19:40 O2 Sat by Pulse Oximetry (%) 100 02/14/17 19:40 Constitutional: Yes: Well Nourished HENT: Yes: WNL Neck: Yes: WNL, Supple Cardiovascular: Yes: WNL, Regular Rate and Rhythm Respiratory: Yes: WNL, Regular, CTA Bilaterally Gastrointestinal: Yes: WNL, Normal Bowel Sounds, Soft Musculoskeletal: Yes: WNL Extremities: Yes: WNL Edema: No Neurological: Yes: WNL, Alert, Oriented ...Motor Strength: WNL Problem List - Problems (1) UTI (urinary tract infection) Assessment/Plan: IV antibxs Follow cultures ID consult Cont IVF Code(s): N39.0 - URINARY TRACT INFECTION, SITE NOT SPECIFIED Qualifiers: Urinary tract infection type: acute cystitis Hematuria presence: without hematuria Qualified Code(s): N30.00 - Acute cystitis without hematuria (2) CAD (coronary artery disease) Code(s): I25.10 - ATHSCL HEART DISEASE OF [place] CORONARY ARTERY W/O ANG PCTRS Qualifiers: Coronary Disease-Associated Artery/Lesion type: [place] artery [place] vs. transplanted heart: [place] heart Associated angina: without angina Qualified Code(s): I25.10 - Atherosclerotic heart disease of [place] coronary artery without angina pectoris (3) Diabetes mellitus Assessment/Plan: May need endo consult Cont meds Cont sliding scal w/ novolog Code(s): E11.9 - TYPE 2 DIABETES MELLITUS WITHOUT COMPLICATIONS Qualifiers: Diabetes mellitus type: type 2 Diabetes mellitus complication status: with hyperglycemia (4) HTN (hypertension), benign Code(s): I10 - ESSENTIAL (PRIMARY) HYPERTENSION (5) Hyperlipidemia associated with type 2 diabetes mellitus Code(s): E11.69 - TYPE 2 DIABETES MELLITUS WITH OTHER SPECIFIED COMPLICATION E78.5 - HYPERLIPIDEMIA, UNSPECIFIED
[2017-02-15 02:20] VITALS: BMI 35.3
[2017-02-15] MEDS ORDERED: PNEUMOC 13-VAL CONJ-DIP CRM/PF 0.5 ML DISP.SYRIN IM ONE (02:20)
[2017-02-15] MEDS: INSULIN SLIDING SCALE (NOVOLOG) 1 VIAL SQ SCH ×4 (06:53→23:00)
[2017-02-15] MEDS: REPAGLINIDE 2 MG TABLET (FP) PO SCH ×3 (06:54→17:49)
[2017-02-15 08:32] LABS: BASOPHIL 0.4 % (0-2.0); MCH 26.5 pg (25.7-33.7); MCHC 32.5 g/dl (32.0-36.0); MEAN CELL VOLUME 81.3 fl (80-96); MEAN PLT VOLUME 10.2 fl (7.5-11.1); NEUTROPHILS 48.7 % (42.8-82.8); PLATELET COUNT 209 K/MM3 (134-434); RDW 13.9 % (11.6-15.6); WHITE BLOOD COUNT 5.6 K/mm3 (4.0-10.0)
[2017-02-15 09:02] LABS: ALBUMIN 2.6 g/dl (3.4-5.0); ALK PHOS 71 U/L (45-117); ANION GAP 9 (8-16); BILIRUBIN,TOTAL 0.4 mg/dL (0.2-1.0); CALCIUM 8.8 mg/dL (8.5-10.1); CO2 25 mmol/L (21-32); CREATININE 0.8 mg/dL (0.55-1.02); GLUCOSE,RANDOM 198 mg/dL (74-106); SGOT/AST 14 U/L (15-37); SGPT/ALT 26 U/L (12-78); TOT PROT 5.8 g/dl (6.4-8.2)
[2017-02-15] MEDS ORDERED: PNEUMOCOCCAL 23 VACCINE 0.5 ML VIAL IM ONE (10:00)
[2017-02-15] MEDS ORDERED: CEFTRIAXONE 50 ML IVPB SCH (10:00)
[2017-02-15] MEDS: HEPARIN NA (PORCINE) 5,000 UNITS/ML 1ML VIAL SQ SCH ×2 (10:45→22:56)
[2017-02-15] MEDS: ASPIRIN 81 MG CHEWABLE TABLETS PO SCH (10:46)
[2017-02-15] MEDS: CLOPIDOGREL BISULFATE 75 MG TABLET (FP) PO SCH (10:46)
[2017-02-15] MEDS: PREGABALIN 25 MG CAPSULE PO SCH ×2 (10:46→22:56)
[2017-02-15] MEDS: LISINOPRIL 10 MG TABLET (FP) PO SCH (10:46)
[2017-02-15] MEDS: CARVEDILOL 6.25 MG TABLET (FP) PO SCH ×2 (10:46→22:56)
[2017-02-15] MEDS: amLODIPine BESYLATE 10 MG TABLET (FP) PO SCH (10:46)
[2017-02-15] MEDS: SODIUM CHLORIDE 0.45% 1,000 ML IV SCH (12:21)
[2017-02-15] MEDS ORDERED: PT OWN MED DRAWER 7, Y5N ONE (18:16)
[2017-02-15] MEDS: metFORMIN HCL 500 MG TABLET (FP) PO SCH (18:40)
[2017-02-15] MEDS: ATORVASTATIN CA 80 MG TABLET (FP) PO SCH (22:56)
--- NOTE | 2017-02-15 23:21 | CONSULT ---
Consult Consult Specialty:: endocrine Referred by:: dr.rocco thibodeaux Reason for Consultation:: diabetes mellitus - History of Present Illness Chief Complaint: high sugars,muscle cramps and legg pains History of Present Illness: 56 yr female with c/o one week cramps in lower legs worse at night. Pt has been having cramps in her shins and feet , pt admits to wearing flat sandals and walking frequently around town. Pt has pain and burning in leggs,frequent urination,blurred vision,high sugars, had been on insulin in past but taken off. admitts her sugars have been higher and will need better diet and exercise for controll of sugars. - History Source History Provided By: Patient - Past Medical History Cardio/Vascular: Yes: CAD (s/p NSTEMI and 2 blanca pci 03/2015), HTN, Hyperlipdemia , [place] Endocrine: Yes: Diabetes Mellitus - Alcohol/Substance Use Hx Alcohol Use: No - Smoking History Smoking history: Never smoked Have you smoked in the past 12 months: No Aproximately how many cigarettes per day: 0 If you are a former smoker, when did you quit?: 10/2014 Home Medications - Allergies Allergies/Adverse Reactions: Allergies Allergy/AdvReac Type Severity Reaction Status Date / Time No Known Allergies Allergy Verified 02/14/17 15:22 - Home Medications Home Medications: Ambulatory Orders Amlodipine Besylate [Norvasc -] 10 mg PO DAILY 01/18/12 Lisinopril [Prinivil] 10 mg PO DAILY 01/18/12 Metformin HCl [Glucophage] 1,000 mg PO BID 01/18/12 Aspirin [ASA -] 81 mg PO DAILY 04/24/15 Atorvastatin Ca [Lipitor] 80 mg PO HS 04/24/15 Carvedilol [Coreg -] 6.25 mg PO BID 04/24/15 Clopidogrel Bisulfate [Plavix -] 75 mg PO DAILY 04/24/15 Repaglinide [Prandin] 2 mg PO TID 04/24/15 Review of Systems - Review of Systems Constitutional: reports: Lethargy, Weakness Eyes: reports: Blurred Vision HENT: reports: No Symptoms Neck: reports: No Symptoms Respiratory: reports: Exercise Intolerance, SOB on Exertion Gastrointestinal: reports: Bloating, Constipation Genitourinary: reports: Frequency Breasts: reports: No Symptoms Reported Musculoskeletal: reports: Extremity Pain, Joint Pain, Joint Swelling, Muscle Pain, Muscle Cramps, Muscle Weakness Integumentary: reports: No Symptoms Neurological: reports: Numbness, Weakness Endocrine: reports: Unexplained Weight Loss Physical Exam Vital Signs: Vital Signs Temperature 98.3 F 02/15/17 23:02 Pulse Rate 67 02/15/17 23:02 Respiratory Rate 18 02/15/17 23:02 Blood Pressure 136/72 02/15/17 23:02 O2 Sat by Pulse Oximetry (%) 100 02/15/17 09:00 Constitutional: Yes: Anxious, Mild Distress Eyes: Yes: EOM Intact HENT: Yes: Normocephalic Neck: Yes: WNL Cardiovascular: Yes: Regular Rate and Rhythm Respiratory: Yes: CTA Bilaterally Gastrointestinal: Yes: Normal Bowel Sounds ...Rectal Exam: Yes: Deferred Renal/: Yes: WNL Musculoskeletal: Yes: Joint Stiffness, Joint Swelling, Muscle Weakness Extremities: Yes: WNL Edema: No Labs: CBC, BMP 02/15/17 08:05 02/15/17 08:05 Problem List - Problems (1) Acute hyperglycemia Code(s): R73.9 - HYPERGLYCEMIA, UNSPECIFIED (2) UTI (urinary tract infection) Code(s): N39.0 - URINARY TRACT INFECTION, SITE NOT SPECIFIED Qualifiers: Urinary tract infection type: acute cystitis Hematuria presence: without hematuria Qualified Code(s): N30.00 - Acute cystitis without hematuria (3) Diabetes mellitus Code(s): E11.9 - TYPE 2 DIABETES MELLITUS WITHOUT COMPLICATIONS Qualifiers: Diabetes mellitus type: type 2 Diabetes mellitus complication status: with hyperglycemia Qualified Code(s): E11.65 - Type 2 diabetes mellitus with hyperglycemia; Z79.4 - jail (current) use of insulin (4) Diarrhea in adult patient Code(s): R19.7 - [place], UNSPECIFIED (5) HTN (hypertension), benign Code(s): I10 - ESSENTIAL (PRIMARY) HYPERTENSION (6) Controlled diabetes mellitus with diabetic peripheral angiopathy without gangrene, with long-term current use of insulin Code(s): E11.51 - TYPE 2 DIABETES W DIABETIC PERIPHERAL ANGIOPATH W/O GANGRENE Z79.4 - 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 CYCLE 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 (CURRENT) USE OF INSULIN Assessment/Plan Current Active Problems Acute hyperglycemia (Acute) UTI (urinary tract infection) (Acute) diabetes mellitus neuropathy htn ashd Abnormal Lab Results 02/15/17 02/15/17 02/15/17 08:05 08:05 08:05 RBC 3.51 L Hgb 9.3 L Hct 28.6 L Lymphocytes % 42.9 H D BUN 26 H Random Glucose 198 H D Hemoglobin A1c % 13.3 H D AST 14 L Total Protein 5.8 L Albumin 2.6 L Laboratory Results - last 24 hr 02/14/17 02/15/17 02/15/17 21:14 02:42 06:53 WBC RBC Hgb Hct MCV MCH MCHC RDW Plt Count MPV Neutrophils % Lymphocytes % Monocytes % Eosinophils % Basophils % Sodium Potassium Chloride Carbon Dioxide Anion Gap BUN Creatinine Creat Clearance w eGFR POC Glucometer 404 163 234 Random Glucose Hemoglobin A1c % Calcium Total Bilirubin AST ALT Alkaline Phosphatase Total Protein Albumin 02/15/17 02/15/17 02/15/17 08:05 08:05 08:05 WBC 5.6 RBC 3.51 L Hgb 9.3 L Hct 28.6 L MCV 81.3 MCH 26.5 MCHC 32.5 RDW 13.9 Plt Count 209 MPV 10.2 Neutrophils % 48.7 Lymphocytes % 42.9 H D Monocytes % 6.0 Eosinophils % 2.0 Basophils % 0.4 Sodium 136 Potassium 4.0 Chloride 102 Carbon Dioxide 25 Anion Gap 9 BUN 26 H Creatinine 0.8 D Creat Clearance w eGFR > 60 POC Glucometer Random Glucose 198 H D Hemoglobin A1c % 13.3 H D Calcium 8.8 Total Bilirubin 0.4 D AST 14 L ALT 26 Alkaline Phosphatase 71 D Total Protein 5.8 L Albumin 2.6 L 02/15/17 02/15/17 11:29 17:45 WBC RBC Hgb Hct MCV MCH MCHC RDW Plt Count MPV Neutrophils % Lymphocytes % Monocytes % Eosinophils % Basophils % Sodium Potassium Chloride Carbon Dioxide Anion Gap BUN Creatinine Creat Clearance w eGFR POC Glucometer 209 247 Random Glucose Hemoglobin A1c % Calcium Total Bilirubin AST ALT Alkaline Phosphatase Total Protein Albumin plan: Current Medications Generic Name Dose Route Start Last Admin Trade Name Freq PRN Reason Stop Dose Admin Amlodipine Besylate 10 mg 02/14/17 21:45 02/15/17 10:46 Norvasc - PO 10 mg DAILY ANDERS Administration Aspirin 81 mg 02/15/17 10:00 02/15/17 10:46 Asa - PO 81 mg DAILY ANDERS Administration Atorvastatin Calcium 80 mg 02/14/17 22:00 02/15/17 22:56 Lipitor - PO 80 mg HS ANDERS Administration Carvedilol 6.25 mg 02/14/17 22:00 02/15/17 22:56 Coreg - PO 6.25 mg BID ANDERS Administration Clopidogrel Bisulfate 75 mg 02/15/17 10:00 02/15/17 10:46 Plavix - PO 75 mg DAILY ANDERS Administration Heparin Sodium (Porcine) 5,000 unit 02/15/17 10:00 02/15/17 22:56 Heparin - SQ 5,000 unit BID ANDERS Administration Sodium Chloride 1,000 mls @ 75 mls/hr 02/14/17 21:45 02/15/17 12:21 1/2 Normal Saline IV 75 mls/hr ASDIR ANDERS Administration Ceftriaxone Sodium 50 mls @ 100 mls/hr 02/15/17 10:00 02/15/17 10:45 Rocephin 1gm Ivpb (Pre-Docked) IVPB 100 mls/hr DAILY ANDERS Administration Insulin Aspart 1 vial 02/14/17 22:00 02/15/17 23:00 Novolog Vial Sliding Scale - SQ 2 units ACHS ANDERS Administration Protocol Insulin Detemir 10 units 02/16/17 22:00 Levemir Vial SQ HS ANDERS Lisinopril 10 mg 02/15/17 10:00 02/15/17 10:46 Prinivil PO 10 mg DAILY ANDERS Administration Metformin HCl 1,000 mg 02/15/17 18:15 02/15/17 18:40 Glucophage - PO 1,000 mg BID@0700,1630 ANDERS Administration Pregabalin 25 mg 02/15/17 10:00 02/15/17 22:56 Lyrica - PO 25 mg BID ANDERS Administration Repaglinide 2 mg 02/15/17 07:00 02/15/17 17:49 Prandin - PO 2 mg TIDAC ANDERS Administration
[2017-02-16] MEDS: SODIUM CHLORIDE 0.45% 1,000 ML IV SCH ×2 (01:30→22:08)
[2017-02-16] MEDS: INSULIN SLIDING SCALE (NOVOLOG) 1 VIAL SQ SCH ×4 (06:30→22:17)
[2017-02-16] MEDS: REPAGLINIDE 2 MG TABLET (FP) PO SCH ×3 (06:31→17:20)
[2017-02-16] MEDS ORDERED: PT OWN MED DRAWER 7, Y5N ONE ×4 (06:36→17:15)
[2017-02-16] MEDS: metFORMIN HCL 500 MG TABLET (FP) PO SCH ×3 (08:22→17:20)
[2017-02-16] MEDS: PREGABALIN 25 MG CAPSULE PO SCH ×2 (09:31→22:09)
[2017-02-16] MEDS: HEPARIN NA (PORCINE) 5,000 UNITS/ML 1ML VIAL SQ SCH ×2 (09:31→22:09)
[2017-02-16] MEDS: CARVEDILOL 6.25 MG TABLET (FP) PO SCH ×2 (09:31→22:09)
[2017-02-16] MEDS: ASPIRIN 81 MG CHEWABLE TABLETS PO SCH (09:31)
[2017-02-16] MEDS: LISINOPRIL 10 MG TABLET (FP) PO SCH (09:31)
[2017-02-16] MEDS: CLOPIDOGREL BISULFATE 75 MG TABLET (FP) PO SCH (09:31)
[2017-02-16] MEDS: amLODIPine BESYLATE 10 MG TABLET (FP) PO SCH (09:31)
[2017-02-16] MEDS ORDERED: CEFTRIAXONE 1 GM in DEXTROSE 5%-WATER - 50 ML IVPB SCH (10:00)
[2017-02-16] MEDS ORDERED: cefTRIAXone SODIUM 1 GM VIAL ONE (10:05)
[2017-02-16] MEDS ORDERED: DEXTROSE 5%-WATER - 50 ML IVPB ONE ×2 (10:06→17:15)
[2017-02-16] MEDS ORDERED: ONDANSETRON 4 MG/2 ML VIAL IVPB ONE (11:30)
[2017-02-16] MEDS ORDERED: ONDANSETRON 4 MG/2 ML VIAL ONE (11:46)
--- NOTE | 2017-02-16 15:34 | CONSULT ---
Consult Consult Specialty:: infectious diseases Reason for Consultation:: uti - History of Present Illness Chief Complaint: cramps and pain in both legs History of Present Illness: 56 yr female with c/o one week cramps in lower legs worse at night. Pt has been having cramps in her shins and feet , pt admits to wearing flat sandals and walking frequently around town. Pt has pain and burning in leggs,frequent urination,blurred vision,high sugars, had been on insulin in past but taken off. admits her sugars have been higher and will need better diet and exercise for control of sugars. according to the patient she thought she never recovered from the first uti and then she was drinking cranberry juice which kept on increasing her sugars then she had bad dysuria and other symptoms started finally cramps in her leg became so bad that she came to the hospital on workup she was found to have high blood sugars and also uti currently she feels better - History Source History Provided By: Patient Limitations to Obtaining History: No Limitations - Past Medical History Cardio/Vascular: Yes: CAD (s/p NSTEMI and 2 blanca pci 03/2015), HTN, Hyperlipdemia , [place] Gastrointestinal: Yes: GERD Psych: Yes: Anxiety, Depression Endocrine: Yes: Diabetes Mellitus - Alcohol/Substance Use Hx Alcohol Use: No - Smoking History Smoking history: Never smoked Have you smoked in the past 12 months: No Aproximately how many cigarettes per day: 0 If you are a former smoker, when did you quit?: 10/2014 Home Medications - Allergies Allergies/Adverse Reactions: Allergies Allergy/AdvReac Type Severity Reaction Status Date / Time No Known Allergies Allergy Verified 02/14/17 15:22 - Home Medications Home Medications: Ambulatory Orders Amlodipine Besylate [Norvasc -] 10 mg PO DAILY 01/18/12 Lisinopril [Prinivil] 10 mg PO DAILY 01/18/12 Metformin HCl [Glucophage] 1,000 mg PO BID 01/18/12 Aspirin [ASA -] 81 mg PO DAILY 04/24/15 Atorvastatin Ca [Lipitor] 80 mg PO HS 04/24/15 Carvedilol [Coreg -] 6.25 mg PO BID 04/24/15 Clopidogrel Bisulfate [Plavix -] 75 mg PO DAILY 04/24/15 Repaglinide [Prandin] 2 mg PO TID 04/24/15 Review of Systems - Review of Systems Constitutional: reports: Weakness Eyes: reports: No Symptoms HENT: reports: No Symptoms Neck: reports: No Symptoms Cardiovascular: reports: No Symptoms Respiratory: reports: No Symptoms Gastrointestinal: reports: No Symptoms Genitourinary: reports: Dysuria. denies: Flank Pain Musculoskeletal: reports: Muscle Weakness Integumentary: reports: No Symptoms Neurological: reports: No Symptoms Endocrine: reports: No Symptoms Hematology/Lymphatic: reports: No Symptoms Psychiatric: reports: No Symptoms Physical Exam Vital Signs: Vital Signs Temperature 98.4 F 02/16/17 10:00 Pulse Rate 66 02/16/17 10:00 Respiratory Rate 18 02/16/17 10:00 Blood Pressure 116/69 02/16/17 10:00 O2 Sat by Pulse Oximetry (%) 100 02/15/17 21:00 Constitutional: Yes: Well Nourished, No Distress Eyes: Yes: Conjunctiva Clear HENT: Yes: Atraumatic Neck: Yes: Supple, Trachea Midline Cardiovascular: Yes: Regular Rate and Rhythm Respiratory: Yes: Regular, CTA Bilaterally Gastrointestinal: Yes: Normal Bowel Sounds, Soft Musculoskeletal: Yes: WNL Extremities: Yes: WNL Neurological: Yes: Alert, Oriented Psychiatric: Yes: Alert, Oriented Labs: CBC, BMP 02/15/17 08:05 02/15/17 08:05 Assessment/Plan Problem List - Problems (1) Acute hyperglycemia Code(s): R73.9 - HYPERGLYCEMIA, UNSPECIFIED (2) UTI (urinary tract infection) Code(s): N39.0 - URINARY TRACT INFECTION, SITE NOT SPECIFIED Qualifiers: Urinary tract infection type: acute cystitis Hematuria presence: without hematuria Qualified Code(s): N30.00 - Acute cystitis without hematuria (3) Diabetes mellitus Code(s): E11.9 - TYPE 2 DIABETES MELLITUS WITHOUT COMPLICATIONS Qualifiers: Diabetes mellitus type: type 2 Diabetes mellitus complication status: with hyperglycemia Qualified Code(s): E11.65 - Type 2 diabetes mellitus with hyperglycemia; Z79.4 - correction (current) use of insulin (4) Diarrhea in adult patient Code(s): R19.7 - DIARRHEA, UNSPECIFIED (5) HTN (hypertension), benign Code(s): I10 - ESSENTIAL (PRIMARY) HYPERTENSION (6) Controlled diabetes mellitus with diabetic peripheral angiopathy without gangrene, with long-term current use of insulin Code(s): E11.51 - TYPE 2 DIABETES W DIABETIC PERIPHERAL ANGIOPATH W/O GANGRENE 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
--- NOTE | 2017-02-16 16:46 | EKG ---
Test Reason : Blood Pressure : / mmHG Vent. Rate : 071 BPM Atrial Rate : 071 BPM P-R Int : 152 ms QRS Dur : 078 ms QT Int : 380 ms P-R-T Axes : 038 -06 014 degrees QTc Int : 412 ms NORMAL SINUS RHYTHM MODERATE VOLTAGE CRITERIA FOR LVH, MAY BE NORMAL VARIANT BORDERLINE ECG WHEN COMPARED WITH ECG OF 27-APR-2016 20:33, NO SIGNIFICANT CHANGE WAS FOUND Confirmed by NEREIDA BARNEY MD ([id number]) on 02/16/2017 4:45:47 PM Referred By: Confirmed By:NEREIDA BARNEY MD
[2017-02-16] MEDS ORDERED: PIPERACILLIN/TAZOBACTAM 3.375 GM VIAL IVPB ONE (17:15)
[2017-02-16] MEDS: PIPERACILLIN/TAZOB 3.375 GM 3.375 GM in DEXTROSE 5%-WATER - 50 ML IVPB SCH (17:20)
[2017-02-16] MEDS ORDERED: PIPERACILLIN/TAZOB 3.375 GM 3.375 GM in DEXTROSE 5%-WATER - 50 ML IVPB SCH (18:00)
[2017-02-16] MEDS: ATORVASTATIN CA 80 MG TABLET (FP) PO SCH (22:09)
[2017-02-16] MEDS: INSULIN DETEMIR 100 UNITS/ML MDV SQ SCH (22:16)
--- NOTE | 2017-02-16 23:20 | PN ---
Progress Note, Physician History of Present Illness: Pt states that she is feeling weak - Current Medication List Current Medications: Active Medications Amlodipine Besylate (Norvasc -) 10 mg PO DAILY [facility] Last Admin: 02/16/17 09:31 Dose: 10 mg Aspirin (Asa -) 81 mg PO DAILY [facility] Last Admin: 02/16/17 09:31 Dose: 81 mg Atorvastatin Calcium (Lipitor -) 80 mg PO HS [facility] Last Admin: 02/16/17 22:09 Dose: 80 mg Carvedilol (Coreg -) 6.25 mg PO BID [facility] Last Admin: 02/16/17 22:09 Dose: 6.25 mg Clopidogrel Bisulfate (Plavix -) 75 mg PO DAILY [facility] Last Admin: 02/16/17 09:31 Dose: 75 mg Heparin Sodium (Porcine) (Heparin -) 5,000 unit SQ BID [facility] Last Admin: 02/16/17 22:09 Dose: 5,000 unit Sodium Chloride (1/2 Normal Saline) 1,000 mls @ 75 mls/hr IV ASDIR [facility] Last Admin: 02/16/17 22:08 Dose: 75 mls/hr Piperacillin Sod/Tazobactam (Sod 3.375 gm/ Dextrose) 50 mls @ 100 mls/hr IVPB Q8H-IV [facility] Last Admin: 02/16/17 17:20 Dose: 100 mls/hr Insulin Aspart (Novolog Vial Sliding Scale -) 1 vial SQ ACHS [facility] PRN Reason: Protocol Last Admin: 02/16/17 22:17 Dose: 2 units Insulin Detemir (Levemir Vial) 10 units SQ HS [facility] Last Admin: 02/16/17 22:16 Dose: 10 units Lisinopril (Prinivil) 10 mg PO DAILY [facility] Last Admin: 02/16/17 09:31 Dose: 10 mg Metformin HCl (Glucophage -) 1,000 mg PO BID@0700,1630 [facility] Last Admin: 02/16/17 17:20 Dose: 1,000 mg Pregabalin (Lyrica -) 25 mg PO BID [facility] Last Admin: 02/16/17 22:09 Dose: 25 mg Repaglinide (Prandin -) 2 mg PO TIDAC [facility] Last Admin: 02/16/17 17:20 Dose: 2 mg - Objective Vital Signs: Vital Signs Temperature 98.4 F 02/16/17 18:47 Pulse Rate 62 02/16/17 18:47 Respiratory Rate 18 02/16/17 18:47 Blood Pressure 125/74 02/16/17 18:47 O2 Sat by Pulse Oximetry (%) 100 02/15/17 21:00 Constitutional: Yes: Well Nourished Neck: Yes: WNL, Supple Cardiovascular: Yes: WNL, Regular Rate and Rhythm Respiratory: Yes: WNL, Regular, CTA Bilaterally Gastrointestinal: Yes: WNL, Normal Bowel Sounds, Soft Extremities: Yes: WNL Edema: No Labs: CBC, BMP 02/15/17 08:05 02/15/17 08:05 Problem List - Problems (1) UTI (urinary tract infection) Assessment/Plan: IV antibxs Follow cultures Cont IVF Code(s): N39.0 - URINARY TRACT INFECTION, SITE NOT SPECIFIED Qualifiers: Urinary tract infection type: acute cystitis Hematuria presence: without hematuria Qualified Code(s): N30.00 - Acute cystitis without hematuria (2) CAD (coronary artery disease) Assessment/Plan: Cont plavix/asa/lipitor Code(s): I25.10 - ATHSCL HEART DISEASE OF [place] CORONARY ARTERY W/O ANG PCTRS Qualifiers: Coronary Disease-Associated Artery/Lesion type: [place] artery [place] vs. transplanted heart: [place] heart Associated angina: without angina Qualified Code(s): I25.10 - Atherosclerotic heart disease of [place] coronary artery without angina pectoris (3) Diabetes mellitus Assessment/Plan: May need endo consult Cont meds Cont sliding scale w/ novolog Code(s): E11.9 - TYPE 2 DIABETES MELLITUS WITHOUT COMPLICATIONS Qualifiers: Diabetes mellitus type: type 2 Diabetes mellitus complication status: with hyperglycemia (4) HTN (hypertension), benign Assessment/Plan: Cont asa/norvasc/coreg/lisinopril Code(s): I10 - ESSENTIAL (PRIMARY) HYPERTENSION (5) Hyperlipidemia associated with type 2 diabetes mellitus Assessment/Plan: Cont lipitor Code(s): E11.69 - TYPE 2 DIABETES MELLITUS WITH OTHER SPECIFIED COMPLICATION E78.5 - HYPERLIPIDEMIA, UNSPECIFIED (6) Morbid obesity Code(s): E66.01 - MORBID (SEVERE) OBESITY DUE TO EXCESS CALORIES
--- NOTE | 2017-02-17 00:01 | PN ---
Progress Note (short form) - Note Progress Note: improving blood sugars,yet symptomatic neuropathy sequela uncontrolled diabetic changes Laboratory Results - last 24 hr 02/16/17 02/16/17 02/16/17 06:00 11:06 17:02 POC Glucometer 137 286 157 02/16/17 22:13 POC Glucometer 185 Current Active Problems Acute hyperglycemia (Acute) Controlled diabetes mellitus with diabetic peripheral angiopathy without gangrene, with long-term current use of insulin (Acute) UTI (urinary tract infection) (Acute) Current Medications Generic Name Dose Route Start Last Admin Trade Name Jonatanq PRN Reason Stop Dose Admin Amlodipine Besylate 10 mg 02/14/17 21:45 02/16/17 09:31 Norvasc - PO 10 mg DAILY ANDERS Administration Aspirin 81 mg 02/15/17 10:00 02/16/17 09:31 Asa - PO 81 mg DAILY ANDERS Administration Atorvastatin Calcium 80 mg 02/14/17 22:00 02/16/17 22:09 Lipitor - PO 80 mg HS ANDERS Administration Carvedilol 6.25 mg 02/14/17 22:00 02/16/17 22:09 Coreg - PO 6.25 mg BID ANDERS Administration Clopidogrel Bisulfate 75 mg 02/15/17 10:00 02/16/17 09:31 Plavix - PO 75 mg DAILY ANDERS Administration Heparin Sodium (Porcine) 5,000 unit 02/15/17 10:00 02/16/17 22:09 Heparin - SQ 5,000 unit BID ANDERS Administration Sodium Chloride 1,000 mls @ 75 mls/hr 02/14/17 21:45 02/16/17 22:08 1/2 Normal Saline IV 75 mls/hr ASDIR ANDERS Administration Piperacillin Sod/Tazobactam 50 mls @ 100 mls/hr 02/16/17 18:00 02/16/17 17:20 Sod 3.375 gm/ Dextrose IVPB 100 mls/hr Q8H-IV [facility]ERS Administration Insulin Aspart 1 vial 02/14/17 22:00 02/16/17 22:17 Novolog Vial Sliding Scale - SQ 2 units ACHS ANDERS Administration Protocol Insulin Detemir 10 units 02/16/17 22:00 02/16/17 22:16 Levemir Vial SQ 10 units HS ANDERS Administration Insulin Detemir 20 units 02/17/17 07:00 Levemir Vial SQ AM ANDERS Lisinopril 10 mg 02/15/17 10:00 02/16/17 09:31 Prinivil PO 10 mg DAILY ANDERS Administration Metformin HCl 1,000 mg 02/15/17 18:15 02/16/17 17:20 Glucophage - PO 1,000 mg BID@0700,1630 AND[facility] Administration Pregabalin 25 mg 02/15/17 10:00 02/16/17 22:09 Lyrica - PO 25 mg BID ANDERS Administration Repaglinide 2 mg 02/15/17 07:00 02/16/17 17:20 Prandin - PO 2 mg TIDAC ANDERS Administration add diet changes and insulin for home use Problem List - Problems (1) Acute hyperglycemia Code(s): R73.9 - HYPERGLYCEMIA, UNSPECIFIED (2) UTI (urinary tract infection) Code(s): N39.0 - URINARY TRACT INFECTION, SITE NOT SPECIFIED Qualifiers: Urinary tract infection type: acute cystitis Hematuria presence: without hematuria Qualified Code(s): N30.00 - Acute cystitis without hematuria (3) Diabetes mellitus Code(s): E11.9 - TYPE 2 DIABETES MELLITUS WITHOUT COMPLICATIONS Qualifiers: Diabetes mellitus type: type 2 Diabetes mellitus complication status: with hyperglycemia Qualified Code(s): E11.65 - Type 2 diabetes mellitus with hyperglycemia; 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
[2017-02-17] MEDS ORDERED: DEXTROSE 5%-WATER - 50 ML IVPB ONE ×3 (01:49→16:22)
[2017-02-17] MEDS ORDERED: PIPERACILLIN/TAZOBACTAM 3.375 GM VIAL IVPB ONE ×2 (01:49→09:34)
[2017-02-17] MEDS: PIPERACILLIN/TAZOB 3.375 GM 3.375 GM in DEXTROSE 5%-WATER - 50 ML IVPB SCH ×2 (02:41→09:39)
[2017-02-17] MEDS ORDERED: PT OWN MED DRAWER 7, Y5N ONE (06:15)
[2017-02-17] MEDS: metFORMIN HCL 500 MG TABLET (FP) PO SCH ×2 (06:40→17:29)
[2017-02-17] MEDS: INSULIN SLIDING SCALE (NOVOLOG) 1 VIAL SQ SCH ×4 (06:41→22:41)
[2017-02-17] MEDS: REPAGLINIDE 2 MG TABLET (FP) PO SCH ×3 (06:42→17:29)
[2017-02-17] MEDS: INSULIN DETEMIR 100 UNITS/ML MDV SQ SCH ×2 (06:46→22:41)
[2017-02-17] MEDS: SODIUM CHLORIDE 0.45% 1,000 ML IV SCH ×2 (08:09→23:22)
[2017-02-17] MEDS: PREGABALIN 25 MG CAPSULE PO SCH ×2 (09:38→22:40)
[2017-02-17] MEDS: HEPARIN NA (PORCINE) 5,000 UNITS/ML 1ML VIAL SQ SCH ×2 (09:38→22:40)
[2017-02-17] MEDS: CLOPIDOGREL BISULFATE 75 MG TABLET (FP) PO SCH (09:38)
[2017-02-17] MEDS: ASPIRIN 81 MG CHEWABLE TABLETS PO SCH (09:38)
[2017-02-17] MEDS: LISINOPRIL 10 MG TABLET (FP) PO SCH (10:27)
[2017-02-17] MEDS: CARVEDILOL 6.25 MG TABLET (FP) PO SCH ×2 (10:27→22:40)
[2017-02-17] MEDS: amLODIPine BESYLATE 10 MG TABLET (FP) PO SCH (10:32)
[2017-02-17] MEDS ORDERED: ONDANSETRON 4 MG/2 ML VIAL IVPB PRN (10:47)
--- NOTE | 2017-02-17 15:37 | PN ---
Progress Note, Physician History of Present Illness: patient had profuse loose stools cdiff send patient feels tired now starting to feel a little better - Current Medication List Current Medications: Active Medications Amlodipine Besylate (Norvasc -) 10 mg PO DAILY [facility] Last Admin: 02/17/17 10:32 Dose: Not Given Aspirin (Asa -) 81 mg PO DAILY [facility] Last Admin: 02/17/17 09:38 Dose: 81 mg Atorvastatin Calcium (Lipitor -) 80 mg PO HS [facility] Last Admin: 02/16/17 22:09 Dose: 80 mg Carvedilol (Coreg -) 6.25 mg PO BID [facility] Last Admin: 02/17/17 10:27 Dose: 6.25 mg Clopidogrel Bisulfate (Plavix -) 75 mg PO DAILY [facility] Last Admin: 02/17/17 09:38 Dose: 75 mg Heparin Sodium (Porcine) (Heparin -) 5,000 unit SQ BID [facility] Last Admin: 02/17/17 09:38 Dose: 5,000 unit Sodium Chloride (1/2 Normal Saline) 1,000 mls @ 75 mls/hr IV ASDIR [facility] Last Admin: 02/17/17 08:09 Dose: 75 mls/hr Ceftriaxone Sodium 1 gm/ (Dextrose) 50 mls @ 100 mls/hr IVPB DAILY [facility] Insulin Aspart (Novolog Vial Sliding Scale -) 1 vial SQ ACHS [facility] PRN Reason: Protocol Last Admin: 02/17/17 11:40 Dose: 2 units Insulin Detemir (Levemir Vial) 10 units SQ HS [facility] Last Admin: 02/16/17 22:16 Dose: 10 units Insulin Detemir (Levemir Vial) 20 units SQ AM [facility] Last Admin: 02/17/17 06:46 Dose: Not Given Lisinopril (Prinivil) 10 mg PO DAILY [facility] Last Admin: 02/17/17 10:27 Dose: 10 mg Metformin HCl (Glucophage -) 1,000 mg PO BID@0700,1630 [facility] Last Admin: 02/17/17 06:40 Dose: 1,000 mg Ondansetron HCl (Zofran Injection) 4 mg IVPB Q6H PRN PRN Reason: NAUSEA AND/OR VOMITING Last Admin: 02/17/17 11:46 Dose: 4 mg Pregabalin (Lyrica -) 25 mg PO BID [facility] Last Admin: 02/17/17 09:38 Dose: 25 mg Repaglinide (Prandin -) 2 mg PO TIDAC [facility] Last Admin: 02/17/17 11:46 Dose: 2 mg - Objective Vital Signs: Vital Signs Temperature 98.6 F 02/17/17 10:00 Pulse Rate 68 02/17/17 10:00 Respiratory Rate 18 02/17/17 10:00 Blood Pressure 129/59 02/17/17 10:00 O2 Sat by Pulse Oximetry (%) 100 02/17/17 09:00 Constitutional: Yes: No Distress, Calm Cardiovascular: Yes: Regular Rate and Rhythm Respiratory: Yes: Regular, CTA Bilaterally Gastrointestinal: Yes: Normal Bowel Sounds, Soft Musculoskeletal: Yes: WNL Extremities: Yes: WNL Neurological: Yes: Alert, Oriented Psychiatric: Yes: Alert, Oriented Labs: CBC, BMP 02/15/17 08:05 02/15/17 08:05 Assessment/Plan Problem List - Problems (1) Acute hyperglycemia Code(s): R73.9 - HYPERGLYCEMIA, UNSPECIFIED (2) UTI (urinary tract infection) Code(s): N39.0 - URINARY TRACT INFECTION, SITE NOT SPECIFIED Qualifiers: Urinary tract infection type: acute cystitis Hematuria presence: without hematuria Qualified Code(s): N30.00 - Acute cystitis without hematuria (3) Diabetes mellitus Code(s): E11.9 - TYPE 2 DIABETES MELLITUS WITHOUT COMPLICATIONS Qualifiers: Diabetes mellitus type: type 2 Diabetes mellitus complication status: with hyperglycemia Qualified Code(s): E11.65 - Type 2 diabetes mellitus with hyperglycemia; 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
--- NOTE | 2017-02-17 16:05 | CON.PSY ---
Psychiatry Consult Chief Complaint: I cry once son while because of my medical problemsd but I am not depressed. I bounce back and work [employer]. I never seen a psych in my life. I dont want any psych meds. I dont need them. - Previous Psychiatric Treatment Outpatient: None Inpatient: None - Previous Substance Abuse Treatment Outpatient: None Inpatient: None - Current Medications Current Medications: Active Medications Amlodipine Besylate (Norvasc -) 10 mg PO DAILY [facility] Last Admin: 02/17/17 10:32 Dose: Not Given Aspirin (Asa -) 81 mg PO DAILY [facility] Last Admin: 02/17/17 09:38 Dose: 81 mg Atorvastatin Calcium (Lipitor -) 80 mg PO HS [facility] Last Admin: 02/16/17 22:09 Dose: 80 mg Carvedilol (Coreg -) 6.25 mg PO BID [facility] Last Admin: 02/17/17 10:27 Dose: 6.25 mg Clopidogrel Bisulfate (Plavix -) 75 mg PO DAILY [facility] Last Admin: 02/17/17 09:38 Dose: 75 mg Heparin Sodium (Porcine) (Heparin -) 5,000 unit SQ BID [facility] Last Admin: 02/17/17 09:38 Dose: 5,000 unit Sodium Chloride (1/2 Normal Saline) 1,000 mls @ 75 mls/hr IV ASDIR [facility] Last Admin: 02/17/17 08:09 Dose: 75 mls/hr Ceftriaxone Sodium 1 gm/ (Dextrose) 50 mls @ 100 mls/hr IVPB DAILY [facility] Insulin Aspart (Novolog Vial Sliding Scale -) 1 vial SQ ACHS [facility] PRN Reason: Protocol Last Admin: 02/17/17 11:40 Dose: 2 units Insulin Detemir (Levemir Vial) 10 units SQ HS [facility] Last Admin: 02/16/17 22:16 Dose: 10 units Insulin Detemir (Levemir Vial) 20 units SQ AM [facility] Last Admin: 02/17/17 06:46 Dose: Not Given Lisinopril (Prinivil) 10 mg PO DAILY [facility] Last Admin: 02/17/17 10:27 Dose: 10 mg Metformin HCl (Glucophage -) 1,000 mg PO BID@0700,1630 [facility] Last Admin: 02/17/17 06:40 Dose: 1,000 mg Ondansetron HCl (Zofran Injection) 4 mg IVPB Q6H PRN PRN Reason: NAUSEA AND/OR VOMITING Last Admin: 02/17/17 11:46 Dose: 4 mg Pregabalin (Lyrica -) 25 mg PO BID [facility] Last Admin: 02/17/17 09:38 Dose: 25 mg Repaglinide (Prandin -) 2 mg PO TIDAC [facility] Last Admin: 02/17/17 11:46 Dose: 2 mg - Allergies Allergies: Allergies Allergy/AdvReac Type Severity Reaction Status Date / Time No Known Allergies Allergy Verified 02/14/17 15:22 - Current Living Status Usual Living Arrangement: With Significant Other - Current Mental Status Evaluation Appearance: Well Groomed Attitude: Cooperative - Affect Affect: Constrictive Appropriateness: Appropriate to Content - Mood Mood: Euthymic - Speech/Language Expressive: Coherent - Psychomotor Activity Psychomotor Activity: Normal - Thought Process Thought Process: Intact - Thought Content Hallucinations: Absent Delusions: Absent - Self Perception Self Perception: No Impairment - Cognition Attention: Alert Orientation: Time Memory, Immediate Recall: Intact Memory, Short Term: 3/3 Memory, Remote with Promptin/3 - Concentration Serial Sevens Intact: Yes Simple Calculations Intact: Yes - Abstraction Judgement: Intact - Insight Insight: Intact - Impulse Control Impulse Control: Good Control - Suicidal Ideation Suicidal Ideation: No - Homicidal Ideation Homicidal Ideation: No Assessment/Plan 1) No need for any antidepressantss at this time and Patient does not want any psych meds.
[2017-02-17] MEDS ORDERED: cefTRIAXone SODIUM 1 GM VIAL ONE (16:21)
[2017-02-17] MEDS: CEFTRIAXONE 1 GM in DEXTROSE 5%-WATER - 50 ML IVPB SCH (16:24)
[2017-02-17] MEDS ORDERED: INSULIN (NOVOLOG) ASPART 100 UNITS/ML 10ML VIAL ONE (21:21)
--- NOTE | 2017-02-17 21:41 | PN ---
Progress Note, Physician History of Present Illness: Pt c/o diarrhea about 7-8 bowel movements today - Current Medication List Current Medications: Active Medications Amlodipine Besylate (Norvasc -) 10 mg PO DAILY [facility] Last Admin: 02/17/17 10:32 Dose: Not Given Aspirin (Asa -) 81 mg PO DAILY [facility] Last Admin: 02/17/17 09:38 Dose: 81 mg Atorvastatin Calcium (Lipitor -) 80 mg PO HS [facility] Last Admin: 02/16/17 22:09 Dose: 80 mg Carvedilol (Coreg -) 6.25 mg PO BID [facility] Last Admin: 02/17/17 10:27 Dose: 6.25 mg Clopidogrel Bisulfate (Plavix -) 75 mg PO DAILY [facility] Last Admin: 02/17/17 09:38 Dose: 75 mg Heparin Sodium (Porcine) (Heparin -) 5,000 unit SQ BID [facility] Last Admin: 02/17/17 09:38 Dose: 5,000 unit Sodium Chloride (1/2 Normal Saline) 1,000 mls @ 75 mls/hr IV ASDIR [facility] Last Admin: 02/17/17 08:09 Dose: 75 mls/hr Ceftriaxone Sodium 1 gm/ (Dextrose) 50 mls @ 100 mls/hr IVPB DAILY [facility] Last Admin: 02/17/17 16:24 Dose: 100 mls/hr Insulin Aspart (Novolog Vial Sliding Scale -) 1 vial SQ ACHS [facility] PRN Reason: Protocol Last Admin: 02/17/17 16:13 Dose: Not Given Insulin Detemir (Levemir Vial) 10 units SQ HS [facility] Last Admin: 02/16/17 22:16 Dose: 10 units Insulin Detemir (Levemir Vial) 20 units SQ AM [facility] Last Admin: 02/17/17 06:46 Dose: Not Given Lisinopril (Prinivil) 10 mg PO DAILY [facility] Last Admin: 02/17/17 10:27 Dose: 10 mg Metformin HCl (Glucophage -) 1,000 mg PO BID@0700,1630 [facility] Last Admin: 02/17/17 17:29 Dose: 1,000 mg Ondansetron HCl (Zofran Injection) 4 mg IVPB Q6H PRN PRN Reason: NAUSEA AND/OR VOMITING Last Admin: 02/17/17 11:46 Dose: 4 mg Pregabalin (Lyrica -) 25 mg PO BID [facility] Last Admin: 02/17/17 09:38 Dose: 25 mg Repaglinide (Prandin -) 2 mg PO TIDAC [facility] Last Admin: 02/17/17 17:29 Dose: 2 mg - Objective Vital Signs: Vital Signs Temperature 98.5 F 02/17/17 19:10 Pulse Rate 65 02/17/17 19:10 Respiratory Rate 18 02/17/17 19:10 Blood Pressure 139/61 02/17/17 19:10 O2 Sat by Pulse Oximetry (%) 100 02/17/17 09:00 Constitutional: Yes: Well Nourished Neck: Yes: WNL, Supple Cardiovascular: Yes: WNL, Regular Rate and Rhythm Respiratory: Yes: WNL, Regular, CTA Bilaterally Gastrointestinal: Yes: WNL, Normal Bowel Sounds Musculoskeletal: Yes: WNL Extremities: Yes: WNL Edema: No Labs: CBC, BMP 02/15/17 08:05 02/15/17 08:05 Problem List - Problems (1) Diarrhea Assessment/Plan: Check stool studies Cont IVF Code(s): R19.7 - DIARRHEA, UNSPECIFIED (2) UTI (urinary tract infection) Assessment/Plan: IV antibxs Follow cultures Cont IVF Code(s): N39.0 - URINARY TRACT INFECTION, SITE NOT SPECIFIED Qualifiers: Urinary tract infection type: acute cystitis Hematuria presence: without hematuria Qualified Code(s): N30.00 - Acute cystitis without hematuria (3) CAD (coronary artery disease) Assessment/Plan: Cont plavix/asa/lipitor Code(s): I25.10 - ATHSCL HEART DISEASE OF [place] CORONARY ARTERY W/O ANG PCTRS Qualifiers: Coronary Disease-Associated Artery/Lesion type: [place] artery [place] vs. transplanted heart: [place] heart Associated angina: without angina Qualified Code(s): I25.10 - Atherosclerotic heart disease of [place] coronary artery without angina pectoris (4) Diabetes mellitus Code(s): E11.9 - TYPE 2 DIABETES MELL[place]US WITHOUT COMPLICATIONS Qualifiers: Diabetes mellitus type: type 2 Diabetes mellitus complication status: with hyperglycemia (5) HTN (hypertension), benign Assessment/Plan: Cont asa/norvasc/coreg/lisinopril Code(s): I10 - ESSENTIAL (PRIMARY) HYPERTENSION (6) Hyperlipidemia associated with type 2 diabetes mellitus Assessment/Plan: Cont lipitor Code(s): E11.69 - TYPE 2 DIABETES MELLITUS WITH OTHER SPECIFIED COMPLICATION E78.5 - HYPERLIPIDEMIA, UNSPECIFIED
[2017-02-17] MEDS: ATORVASTATIN CA 80 MG TABLET (FP) PO SCH (22:40)
[2017-02-18] MEDS: INSULIN DETEMIR 100 UNITS/ML MDV SQ SCH (06:43)
[2017-02-18] MEDS: metFORMIN HCL 500 MG TABLET (FP) PO SCH ×2 (06:43→19:28)
[2017-02-18] MEDS: INSULIN SLIDING SCALE (NOVOLOG) 1 VIAL SQ SCH ×4 (06:43→21:43)
[2017-02-18] MEDS: REPAGLINIDE 2 MG TABLET (FP) PO SCH ×3 (06:44→19:17)
[2017-02-18 09:08] LABS: BASOPHIL 0.5 % (0-2.0); EOSINOPHIL 1.9 % (0-4.5); MCH 26.3 pg (25.7-33.7); MCHC 31.8 g/dl (32.0-36.0); MEAN CELL VOLUME 82.8 fl (80-96); PLATELET COUNT 217 K/MM3 (134-434); RDW 14.6 % (11.6-15.6); WHITE BLOOD COUNT 5.1 K/mm3 (4.0-10.0)
[2017-02-18] MEDS ORDERED: cefTRIAXone SODIUM 1 GM VIAL ONE (09:20)
[2017-02-18] MEDS ORDERED: DEXTROSE 5%-WATER - 50 ML IVPB ONE (09:21)
[2017-02-18 09:39] LABS: ALBUMIN 2.7 g/dl (3.4-5.0); ANION GAP 6 (8-16); CALCIUM 8.5 mg/dL (8.5-10.1); CO2 26 mmol/L (21-32); CREATININE 0.7 mg/dL (0.55-1.02); GLUCOSE,RANDOM 117 mg/dL (74-106); SGOT/AST 19 U/L (15-37); SGPT/ALT 27 U/L (12-78)
[2017-02-18 09:41] LABS: ALK PHOS 65 U/L (45-117); BILIRUBIN,TOTAL 0.5 mg/dL (0.2-1.0); TOT PROT 5.9 g/dl (6.4-8.2)
[2017-02-18] MEDS: PREGABALIN 25 MG CAPSULE PO SCH ×2 (10:13→21:06)
[2017-02-18] MEDS: LISINOPRIL 10 MG TABLET (FP) PO SCH (10:13)
[2017-02-18] MEDS: amLODIPine BESYLATE 10 MG TABLET (FP) PO SCH (10:13)
[2017-02-18] MEDS: HEPARIN NA (PORCINE) 5,000 UNITS/ML 1ML VIAL SQ SCH ×2 (10:13→21:06)
[2017-02-18] MEDS: CLOPIDOGREL BISULFATE 75 MG TABLET (FP) PO SCH (10:13)
[2017-02-18] MEDS: ASPIRIN 81 MG CHEWABLE TABLETS PO SCH (10:14)
[2017-02-18] MEDS: CARVEDILOL 6.25 MG TABLET (FP) PO SCH ×2 (10:14→21:06)
[2017-02-18] MEDS: CEFTRIAXONE 1 GM in DEXTROSE 5%-WATER - 50 ML IVPB SCH (10:14)
[2017-02-18] MEDS ORDERED: PT OWN MED DRAWER 7, Y5N ONE (12:25)
--- NOTE | 2017-02-18 15:59 | PN ---
Progress Note, Physician History of Present Illness: stable still very weak - Current Medication List Current Medications: Active Medications Amlodipine Besylate (Norvasc -) 10 mg PO DAILY [facility] Last Admin: 02/18/17 10:13 Dose: 10 mg Aspirin (Asa -) 81 mg PO DAILY [facility] Last Admin: 02/18/17 10:14 Dose: 81 mg Atorvastatin Calcium (Lipitor -) 80 mg PO HS [facility] Last Admin: 02/17/17 22:40 Dose: 80 mg Carvedilol (Coreg -) 6.25 mg PO BID [facility] Last Admin: 02/18/17 10:14 Dose: 6.25 mg Clopidogrel Bisulfate (Plavix -) 75 mg PO DAILY [facility] Last Admin: 02/18/17 10:13 Dose: 75 mg Heparin Sodium (Porcine) (Heparin -) 5,000 unit SQ BID [facility] Last Admin: 02/18/17 10:13 Dose: 5,000 unit Sodium Chloride (1/2 Normal Saline) 1,000 mls @ 75 mls/hr IV ASDIR [facility] Last Admin: 02/17/17 23:22 Dose: 75 mls/hr Ceftriaxone Sodium 1 gm/ (Dextrose) 50 mls @ 100 mls/hr IVPB DAILY [facility] Last Admin: 02/18/17 10:14 Dose: 100 mls/hr Insulin Aspart (Novolog Vial Sliding Scale -) 1 vial SQ ACHS [facility] PRN Reason: Protocol Last Admin: 02/18/17 12:34 Dose: Not Given Insulin Detemir (Levemir Vial) 10 units SQ HS [facility] Last Admin: 02/17/17 22:41 Dose: 10 units Insulin Detemir (Levemir Vial) 20 units SQ AM [facility] Last Admin: 02/18/17 06:43 Dose: 20 units Lisinopril (Prinivil) 10 mg PO DAILY [facility] Last Admin: 02/18/17 10:13 Dose: 10 mg Metformin HCl (Glucophage -) 1,000 mg PO BID@0700,1630 [facility] Last Admin: 02/18/17 06:43 Dose: 1,000 mg Ondansetron HCl (Zofran Injection) 4 mg IVPB Q6H PRN PRN Reason: NAUSEA AND/OR VOMITING Last Admin: 02/17/17 11:46 Dose: 4 mg Pregabalin (Lyrica -) 25 mg PO BID [facility] Last Admin: 02/18/17 10:13 Dose: 25 mg Repaglinide (Prandin -) 2 mg PO TIDAC [facility] Last Admin: 02/18/17 12:32 Dose: 2 mg - Objective Vital Signs: Vital Signs Temperature 97.7 F 02/18/17 15:55 Pulse Rate 60 02/18/17 15:55 Respiratory Rate 18 02/18/17 15:55 Blood Pressure 132/65 02/18/17 15:55 O2 Sat by Pulse Oximetry (%) 100 02/17/17 22:00 Constitutional: Yes: No Distress, Calm Cardiovascular: Yes: Regular Rate and Rhythm Respiratory: Yes: Regular, CTA Bilaterally Gastrointestinal: Yes: Normal Bowel Sounds, Soft Musculoskeletal: Yes: WNL Extremities: Yes: WNL Neurological: Yes: Alert, Oriented Psychiatric: Yes: Alert, Oriented Labs: CBC, BMP 02/18/17 08:30 02/18/17 08:30 Assessment/Plan Problem List - Problems (1) Acute hyperglycemia Code(s): R73.9 - HYPERGLYCEMIA, UNSPECIFIED (2) UTI (urinary tract infection) Code(s): N39.0 - URINARY TRACT INFECTION, SITE NOT SPECIFIED Qualifiers: Urinary tract infection type: acute cystitis Hematuria presence: without hematuria Qualified Code(s): N30.00 - Acute cystitis without hematuria (3) Diabetes mellitus Code(s): E11.9 - TYPE 2 DIABETES MELLITUS WITHOUT COMPLICATIONS Qualifiers: Diabetes mellitus type: type 2 Diabetes mellitus complication status: with hyperglycemia Qualified Code(s): E11.65 - Type 2 diabetes mellitus with hyperglycemia; Z79.4 - penitentiary (current) use of insulin (4) Diarrhea in adult patient Code(s): R19.7 - DIARRHEA, UNSPECIFIED (5) HTN (hypertension), benign Code(s): I10 - ESSENTIAL (PRIMARY) HYPERTENSION (6) Controlled diabetes mellitus with diabetic peripheral angiopathy without gangrene, with long-term current use of insulin Code(s): E11.51 - TYPE 2 DIABETES W DIABETIC PERIPHERAL ANGIOPATH W/O GANGRENE Z79.4 - APPRAISER ART (CURRENT) USE OF INSULIN plan continue abx hydration will deescaalte abx soon rest as per primary
[2017-02-18] MEDS: SODIUM CHLORIDE 0.45% 1,000 ML IV SCH ×2 (18:00→20:05)
--- NOTE | 2017-02-18 19:36 | PN ---
Progress Note (short form) - Note Progress Note: dm now improving blood sugars with lower postprandial Abnormal Lab Results 02/18/17 02/18/17 08:30 08:30 RBC 3.59 L Hgb 9.5 L Hct 29.7 L MCHC 31.8 L Lymphocytes % 40.4 H Chloride 108 H Anion Gap 6 L BUN 20 H D Random Glucose 117 H D Total Protein 5.9 L Albumin 2.7 L Laboratory Tests 02/15/17 02/17/17 02/17/17 08:05 16:11 22:39 POC Glucometer 132 161 Hemoglobin A1c % 13.3 H D 02/18/17 02/18/17 02/18/17 06:42 12:13 17:27 POC Glucometer 121 126 84 Hemoglobin A1c % plan: continue levemir 10 am if sugar over 120mg/dl prandin 1 mg ac meals metformin 1gm tid dc hs levemir since sugars improving in controlled environment Problem List - Problems (1) Acute hyperglycemia Code(s): R73.9 - HYPERGLYCEMIA, UNSPECIFIED (2) UTI (urinary tract infection) Code(s): N39.0 - URINARY TRACT INFECTION, SITE NOT SPECIFIED Qualifiers: Urinary tract infection type: acute cystitis Hematuria presence: without hematuria Qualified Code(s): N30.00 - Acute cystitis without hematuria (3) Diabetes mellitus Code(s): E11.9 - TYPE 2 DIABETES MELLITUS WITHOUT COMPLICATIONS Qualifiers: Diabetes mellitus type: type 2 Diabetes mellitus complication status: with hyperglycemia Qualified Code(s): E11.65 - Type 2 diabetes mellitus with hyperglycemia; Z79.4 - prison (current) use of insulin (4) Diarrhea in adult patient Code(s): R19.7 - DIARRHEA, UNSPECIFIED (5) HTN (hypertension), benign Code(s): I10 - ESSENTIAL (PRIMARY) HYPERTENSION (6) Controlled diabetes mellitus with diabetic peripheral angiopathy without gangrene, with long-term current use of insulin Code(s): E11.51 - TYPE 2 DIABETES W DIABETIC PERIPHERAL ANGIOPATH W/O GANGRENE Z79.4 - ASSISTED (CURRENT) USE OF INSULIN
[2017-02-18] MEDS: ATORVASTATIN CA 80 MG TABLET (FP) PO SCH (21:06)
--- NOTE | 2017-02-18 21:07 | PN ---
Progress Note, Physician - Current Medication List Current Medications: Active Medications Amlodipine Besylate (Norvasc -) 10 mg PO DAILY [facility] Last Admin: 02/18/17 10:13 Dose: 10 mg Aspirin (Asa -) 81 mg PO DAILY [facility] Last Admin: 02/18/17 10:14 Dose: 81 mg Atorvastatin Calcium (Lipitor -) 80 mg PO HS [facility] Last Admin: 02/17/17 22:40 Dose: 80 mg Carvedilol (Coreg -) 6.25 mg PO BID [facility] Last Admin: 02/18/17 10:14 Dose: 6.25 mg Clopidogrel Bisulfate (Plavix -) 75 mg PO DAILY [facility] Last Admin: 02/18/17 10:13 Dose: 75 mg Heparin Sodium (Porcine) (Heparin -) 5,000 unit SQ BID [facility] Last Admin: 02/18/17 10:13 Dose: 5,000 unit Sodium Chloride (1/2 Normal Saline) 1,000 mls @ 75 mls/hr IV ASDIR [facility] Last Admin: 02/18/17 18:00 Dose: 75 mls/hr Ceftriaxone Sodium 1 gm/ (Dextrose) 50 mls @ 100 mls/hr IVPB DAILY [facility] Last Admin: 02/18/17 10:14 Dose: 100 mls/hr Insulin Aspart (Novolog Vial Sliding Scale -) 1 vial SQ ACHS [facility] PRN Reason: Protocol Last Admin: 02/18/17 18:33 Dose: Not Given Insulin Detemir (Levemir Vial) 10 units SQ AM@0700 [facility] Lisinopril (Prinivil) 10 mg PO DAILY [facility] Last Admin: 02/18/17 10:13 Dose: 10 mg Metformin HCl (Glucophage -) 1,000 mg PO BID@0700,1630 [facility] Last Admin: 02/18/17 19:28 Dose: 1,000 mg Ondansetron HCl (Zofran Injection) 4 mg IVPB Q6H PRN PRN Reason: NAUSEA AND/OR VOMITING Last Admin: 02/17/17 11:46 Dose: 4 mg Pregabalin (Lyrica -) 25 mg PO BID [facility] Last Admin: 02/18/17 10:13 Dose: 25 mg Repaglinide (Prandin -) 1 mg PO TIDAC [facility] - Objective Vital Signs: Vital Signs Temperature 98.2 F 02/18/17 18:00 Pulse Rate 64 02/18/17 21:04 Respiratory Rate 20 02/18/17 21:04 Blood Pressure 123/55 02/18/17 21:04 O2 Sat by Pulse Oximetry (%) 100 02/18/17 09:00 Constitutional: Yes: Well Nourished Neck: Yes: WNL, Supple Cardiovascular: Yes: WNL, Regular Rate and Rhythm Respiratory: Yes: WNL, Regular, CTA Bilaterally Gastrointestinal: Yes: WNL, Normal Bowel Sounds, Soft, Abdomen, Obese Musculoskeletal: Yes: WNL Extremities: Yes: WNL Edema: No Labs: CBC, BMP 02/18/17 08:30 02/18/17 08:30 Problem List - Problems (1) UTI (urinary tract infection) Assessment/Plan: IV antibxs Code(s): N39.0 - URINARY TRACT INFECTION, SITE NOT SPECIFIED Qualifiers: Urinary tract infection type: acute cystitis Hematuria presence: without hematuria Qualified Code(s): N30.00 - Acute cystitis without hematuria (2) CAD (coronary artery disease) Code(s): I25.10 - ATHSCL HEART DISEASE OF [place] CORONARY ARTERY W/O ANG PCTRS Qualifiers: Coronary Disease-Associated Artery/Lesion type: [place] artery [place] vs. transplanted heart: [place] heart Associated angina: without angina Qualified Code(s): I25.10 - Atherosclerotic heart disease of [place] coronary artery without angina pectoris (3) Diabetes mellitus Code(s): E11.9 - TYPE 2 DIABETES MELLITUS WITHOUT COMPLICATIONS Qualifiers: Diabetes mellitus type: type 2 Diabetes mellitus complication status: with hyperglycemia (4) HTN (hypertension), benign Code(s): I10 - ESSENTIAL (PRIMARY) HYPERTENSION (5) Hyperlipidemia associated with type 2 diabetes mellitus Code(s): E11.69 - TYPE 2 DIABETES MELLITUS WITH OTHER SPECIFIED COMPLICATION E78.5 - HYPERLIPIDEMIA, UNSPECIFIED
[2017-02-19] MEDS: INSULIN DETEMIR 100 UNITS/ML MDV SQ SCH (06:29)
[2017-02-19] MEDS: REPAGLINIDE 2 MG TABLET (FP) PO SCH ×3 (06:29→16:40)
[2017-02-19] MEDS: INSULIN SLIDING SCALE (NOVOLOG) 1 VIAL SQ SCH ×4 (06:29→21:10)
[2017-02-19] MEDS: metFORMIN HCL 500 MG TABLET (FP) PO SCH ×2 (06:38→16:40)
[2017-02-19] MEDS: SODIUM CHLORIDE 0.45% 1,000 ML IV SCH ×2 (06:50→12:11)
[2017-02-19] MEDS ORDERED: cefTRIAXone SODIUM 1 GM VIAL ONE (10:20)
[2017-02-19] MEDS ORDERED: DEXTROSE 5%-WATER - 50 ML IVPB ONE (10:21)
[2017-02-19] MEDS: CARVEDILOL 6.25 MG TABLET (FP) PO SCH ×2 (10:25→21:07)
[2017-02-19] MEDS: CEFTRIAXONE 1 GM in DEXTROSE 5%-WATER - 50 ML IVPB SCH (10:25)
[2017-02-19] MEDS: ASPIRIN 81 MG CHEWABLE TABLETS PO SCH (10:25)
[2017-02-19] MEDS: PREGABALIN 25 MG CAPSULE PO SCH ×2 (10:25→21:07)
[2017-02-19] MEDS: amLODIPine BESYLATE 10 MG TABLET (FP) PO SCH (10:25)
[2017-02-19] MEDS: CLOPIDOGREL BISULFATE 75 MG TABLET (FP) PO SCH (10:25)
[2017-02-19] MEDS: HEPARIN NA (PORCINE) 5,000 UNITS/ML 1ML VIAL SQ SCH ×2 (10:25→21:07)
[2017-02-19] MEDS: LISINOPRIL 10 MG TABLET (FP) PO SCH (10:25)
[2017-02-19] MEDS ORDERED: PT OWN MED DRAWER 7, Y5N ONE ×2 (11:53→16:34)
--- NOTE | 2017-02-19 16:05 | PN ---
Progress Note, Physician History of Present Illness: Pt states she feels well. Denies dysuria. Had 1 BM today, no abd discomfort, no fever or chills - Current Medication List Current Medications: Active Medications Amlodipine Besylate (Norvasc -) 10 mg PO DAILY [facility] Last Admin: 02/19/17 10:25 Dose: 10 mg Aspirin (Asa -) 81 mg PO DAILY [facility] Last Admin: 02/19/17 10:25 Dose: 81 mg Atorvastatin Calcium (Lipitor -) 80 mg PO HS [facility] Last Admin: 02/18/17 21:06 Dose: 80 mg Carvedilol (Coreg -) 6.25 mg PO BID [facility] Last Admin: 02/19/17 10:25 Dose: 6.25 mg Clopidogrel Bisulfate (Plavix -) 75 mg PO DAILY [facility] Last Admin: 02/19/17 10:25 Dose: 75 mg Heparin Sodium (Porcine) (Heparin -) 5,000 unit SQ BID [facility] Last Admin: 02/19/17 10:25 Dose: 5,000 unit Sodium Chloride (1/2 Normal Saline) 1,000 mls @ 75 mls/hr IV ASDIR [facility] Last Admin: 02/19/17 12:11 Dose: 75 mls/hr Ceftriaxone Sodium 1 gm/ (Dextrose) 50 mls @ 100 mls/hr IVPB DAILY [facility] Last Admin: 02/19/17 10:25 Dose: 100 mls/hr Insulin Aspart (Novolog Vial Sliding Scale -) 1 vial SQ ACHS [facility] PRN Reason: Protocol Last Admin: 02/19/17 11:50 Dose: 6 units Insulin Detemir (Levemir Vial) 10 units SQ AM@0700 [facility] Last Admin: 02/19/17 06:29 Dose: Not Given Lisinopril (Prinivil) 10 mg PO DAILY [facility] Last Admin: 02/19/17 10:25 Dose: 10 mg Metformin HCl (Glucophage -) 1,000 mg PO BID@0700,1630 [facility] Last Admin: 02/19/17 06:38 Dose: 1,000 mg Ondansetron HCl (Zofran Injection) 4 mg IVPB Q6H PRN PRN Reason: NAUSEA AND/OR VOMITING Last Admin: 02/17/17 11:46 Dose: 4 mg Pregabalin (Lyrica -) 25 mg PO BID [facility] Last Admin: 02/19/17 10:25 Dose: 25 mg Repaglinide (Prandin -) 1 mg PO TIDAC [facility] Last Admin: 02/19/17 11:54 Dose: 1 mg - Objective Vital Signs: Vital Signs Temperature 97.9 F 02/19/17 14:27 Pulse Rate 66 02/19/17 14:27 Respiratory Rate 22 02/19/17 14:27 Blood Pressure 125/65 02/19/17 14:27 O2 Sat by Pulse Oximetry (%) 100 02/19/17 11:00 Constitutional: Yes: No Distress Neck: Yes: WNL Cardiovascular: Yes: Regular Rate and Rhythm Respiratory: Yes: CTA Bilaterally Gastrointestinal: Yes: Normal Bowel Sounds, Soft Genitourinary: Yes: Other (no CVA or suprapubic tenderness) Extremities: Yes: WNL Integumentary: Yes: WNL Neurological: Yes: Alert Labs: CBC, BMP 02/18/17 08:30 02/18/17 08:30 Microbiology 02/14/17 17:50 Blood Culture - Preliminary Blood - Peripheral Venous NO GROWTH OBTAINED AFTER 96 HOURS, INCUBATION TO CONTINUE FOR 1 DAYS. 02/14/17 17:45 Blood Culture - Preliminary Blood - Peripheral Venous NO GROWTH OBTAINED AFTER 96 HOURS, INCUBATION TO CONTINUE FOR 1 DAYS. Microbiology 02/14/17 17:50 Blood - Peripheral Venous Blood Culture - Preliminary NO GROWTH OBTAINED AFTER 96 HOURS, INCUBATION TO CONTINUE FOR 1 DAYS. 02/14/17 17:45 Blood - Peripheral Venous Blood Culture - Preliminary NO GROWTH OBTAINED AFTER 96 HOURS, INCUBATION TO CONTINUE FOR 1 DAYS. 02/17/17 11:16 Stool Clostridium difficile Antigen (EVETTE) - Final 02/17/17 11:16 Stool Clostridium difficile Toxin Assay - Final 02/14/17 16:51 Urine - Urine Clean Catch Urine Culture - Final Escherichia Coli Problem List - Problems (1) Acute hyperglycemia Code(s): R73.9 - HYPERGLYCEMIA, UNSPECIFIED (2) UTI (urinary tract infection) Code(s): N39.0 - URINARY TRACT INFECTION, SITE NOT SPECIFIED Qualifiers: Urinary tract infection type: acute cystitis Hematuria presence: without hematuria Qualified Code(s): N30.00 - Acute cystitis without hematuria (3) Diabetes mellitus Code(s): E11.9 - TYPE 2 DIABETES MELLITUS WITHOUT COMPLICATIONS Qualifiers: Diabetes mellitus type: type 2 Diabetes mellitus complication status: with hyperglycemia Qualified Code(s): E11.65 - Type 2 diabetes mellitus with hyperglycemia; Z79.4 - senior living (current) use of insulin Assessment/Plan Pt symptomatically improving d/c Ceftriaxone start Bactrim po
[2017-02-19] MEDS ORDERED: INSULIN (NOVOLOG) ASPART 100 UNITS/ML 10ML VIAL ONE ×2 (16:35→20:54)
--- NOTE | 2017-02-19 17:26 | PN ---
Progress Note, Physician History of Present Illness: Pt states that she is feeling weak - Current Medication List Current Medications: Active Medications Amlodipine Besylate (Norvasc -) 10 mg PO DAILY [facility] Last Admin: 02/19/17 10:25 Dose: 10 mg Amoxicillin/Clavulanate Potassium (Augmentin - 875mg Tablet) 1 tab PO BID@0800, 1730 [facility] Stop: 02/22/17 17:29 Aspirin (Asa -) 81 mg PO DAILY [facility] Last Admin: 02/19/17 10:25 Dose: 81 mg Atorvastatin Calcium (Lipitor -) 80 mg PO HS [facility] Last Admin: 02/18/17 21:06 Dose: 80 mg Carvedilol (Coreg -) 6.25 mg PO BID [facility] Last Admin: 02/19/17 10:25 Dose: 6.25 mg Clopidogrel Bisulfate (Plavix -) 75 mg PO DAILY [facility] Last Admin: 02/19/17 10:25 Dose: 75 mg Heparin Sodium (Porcine) (Heparin -) 5,000 unit SQ BID [facility] Last Admin: 02/19/17 10:25 Dose: 5,000 unit Sodium Chloride (1/2 Normal Saline) 1,000 mls @ 75 mls/hr IV ASDIR [facility] Last Admin: 02/19/17 12:11 Dose: 75 mls/hr Insulin Aspart (Novolog Vial Sliding Scale -) 1 vial SQ ACHS [facility] PRN Reason: Protocol Last Admin: 02/19/17 16:41 Dose: 2 units Insulin Detemir (Levemir Vial) 10 units SQ AM@0700 [facility] Last Admin: 02/19/17 06:29 Dose: Not Given Lisinopril (Prinivil) 10 mg PO DAILY [facility] Last Admin: 02/19/17 10:25 Dose: 10 mg Metformin HCl (Glucophage -) 1,000 mg PO BID@0700,1630 [facility] Last Admin: 02/19/17 16:40 Dose: 1,000 mg Ondansetron HCl (Zofran Injection) 4 mg IVPB Q6H PRN PRN Reason: NAUSEA AND/OR VOMITING Last Admin: 02/17/17 11:46 Dose: 4 mg Pregabalin (Lyrica -) 25 mg PO BID [facility] Last Admin: 02/19/17 10:25 Dose: 25 mg Repaglinide (Prandin -) 1 mg PO TIDAC [facility] Last Admin: 02/19/17 16:40 Dose: 1 mg - Objective Vital Signs: Vital Signs Temperature 98 F 02/19/17 16:54 Pulse Rate 76 02/19/17 16:54 Respiratory Rate 20 02/19/17 16:54 Blood Pressure 121/54 02/19/17 16:54 O2 Sat by Pulse Oximetry (%) 100 02/19/17 11:00 Constitutional: Yes: Well Nourished Neck: Yes: WNL, Supple Cardiovascular: Yes: WNL, Regular Rate and Rhythm Respiratory: Yes: WNL, Regular, CTA Bilaterally Gastrointestinal: Yes: WNL, Normal Bowel Sounds, Soft Labs: CBC, BMP 02/18/17 08:30 02/18/17 08:30 Problem List - Problems (1) UTI (urinary tract infection) Assessment/Plan: Pt now on augmentin Follow urine culture wc was (+) for E.Coli DC planning for am Pt feeling weak Code(s): N39.0 - URINARY TRACT INFECTION, SITE NOT SPECIFIED Qualifiers: Urinary tract infection type: acute cystitis Hematuria presence: without hematuria Qualified Code(s): N30.00 - Acute cystitis without hematuria (2) CAD (coronary artery disease) Code(s): I25.10 - ATHSCL HEART DISEASE OF [place] CORONARY ARTERY W/O ANG PCTRS Qualifiers: Coronary Disease-Associated Artery/Lesion type: [place] artery [place] vs. transplanted heart: [place] heart Associated angina: without angina Qualified Code(s): I25.10 - Atherosclerotic heart disease of [place] coronary artery without angina pectoris (3) Diabetes mellitus Assessment/Plan: Glucose better controlled Cont prandin/metformin/levemir Code(s): E11.9 - TYPE 2 DIABETES MELLITUS WITHOUT COMPLICATIONS Qualifiers: Diabetes mellitus type: type 2 Diabetes mellitus complication status: with hyperglycemia Qualified Code(s): E11.65 - Type 2 diabetes mellitus with hyperglycemia; Z79.4 - vacuum [employer] cans (current) use of insulin (4) HTN (hypertension), benign Assessment/Plan: Cont asa/norvasc/coreg/lisinopril Code(s): I10 - ESSENTIAL (PRIMARY) HYPERTENSION (5) Hyperlipidemia associated with type 2 diabetes mellitus Assessment/Plan: Cont lipitor Code(s): E11.69 - TYPE 2 DIABETES MELLITUS WITH OTHER SPECIFIED COMPLICATION E78.5 - HYPERLIPIDEMIA, UNSPECIFIED (6) Peripheral neuropathy Assessment/Plan: Cont lyrica Code(s): G62.9 - POLYNEUROPATHY, UNSPECIFIED (7) Morbid obesity Code(s): E66.01 - MORBID (SEVERE) OBESITY DUE TO EXCESS CALORIES
[2017-02-19] MEDS: AMOX TR/POT CLAV 875MG/125MG TABLETS (FP) PO SCH (17:37)
[2017-02-19] MEDS: ATORVASTATIN CA 80 MG TABLET (FP) PO SCH (21:08)
[2017-02-20] MEDS: SODIUM CHLORIDE 0.45% 1,000 ML IV SCH (02:45)
[2017-02-20] MEDS ORDERED: PT OWN MED DRAWER 7, Y5N ONE ×3 (06:03→11:59)
[2017-02-20] MEDS: metFORMIN HCL 500 MG TABLET (FP) PO SCH (06:16)
[2017-02-20] MEDS: INSULIN DETEMIR 100 UNITS/ML MDV SQ SCH (06:19)
[2017-02-20] MEDS: REPAGLINIDE 2 MG TABLET (FP) PO SCH ×2 (06:22→12:05)
[2017-02-20] MEDS: INSULIN SLIDING SCALE (NOVOLOG) 1 VIAL SQ SCH ×2 (06:22→12:05)
[2017-02-20] MEDS ORDERED: INSULIN (NOVOLOG) ASPART 100 UNITS/ML 10ML VIAL ONE (06:32)
[2017-02-20] MEDS ORDERED: INSULIN DETEMIR 100 UNITS/ML MDV SQ ONE (06:32)
[2017-02-20] MEDS: AMOX TR/POT CLAV 875MG/125MG TABLETS (FP) PO SCH (08:53)
[2017-02-20 10:27] VITALS: BP 126/68; PULSE 76; TEMP 98
[2017-02-20] MEDS: CARVEDILOL 6.25 MG TABLET (FP) PO SCH (10:38)
[2017-02-20] MEDS: CLOPIDOGREL BISULFATE 75 MG TABLET (FP) PO SCH (10:38)
[2017-02-20] MEDS: PREGABALIN 25 MG CAPSULE PO SCH (10:38)
[2017-02-20] MEDS: ASPIRIN 81 MG CHEWABLE TABLETS PO SCH (10:38)
[2017-02-20] MEDS: LISINOPRIL 10 MG TABLET (FP) PO SCH (10:38)
[2017-02-20] MEDS: HEPARIN NA (PORCINE) 5,000 UNITS/ML 1ML VIAL SQ SCH (10:38)
[2017-02-20] MEDS: amLODIPine BESYLATE 10 MG TABLET (FP) PO SCH (10:38)
== END 2017-02-20 14:04 | disposition home or self-care (01) | DRG 74 ==
LOC: JER 15:17 → JERFT 15:17 → JERBED 17:45 → J5S 19:59
PROVIDERS: ADMIT Internal Medicine; ATTEND Internal Medicine
DX: E11.40 Type 2 diabetes mellitus with diabetic neuropathy, unspecified (principal); N39.0 Urinary tract infection, site not specified; B96.20 Unspecified Escherichia coli [E. coli] as the cause of diseases classified elsewhere; I25.10 Atherosclerotic heart disease of native coronary artery without angina pectoris; I10 Essential (primary) hypertension; I25.2 Old myocardial infarction; F41.8 Other specified anxiety disorders; E78.4 Other hyperlipidemia; E11.65 Type 2 diabetes mellitus with hyperglycemia; R19.7 Diarrhea, unspecified; E11.51 Type 2 diabetes mellitus with diabetic peripheral angiopathy without gangrene; E66.01 Morbid (severe) obesity due to excess calories; Z68.35 Body mass index [BMI] 35.0-35.9, adult; Z95.5 Presence of coronary angioplasty implant and graft; Z79.4 Long term (current) use of insulin
CPT/HCPCS: 36415; 71020-TC; 80053; 81003; 81015; 83036; 83735; 85025; 87040; 87086; 87186; 87324; 87449; 90732; 93005; 93010; 99283-25; G0009; J1644

== ENCOUNTER 2017-07-15 05:02 | Inpatient (IN) | payer OTHER ==
[2017-07-15] MEDS ORDERED: ASPIRIN 81 MG CHEWABLE TABLETS PO ONE (05:22)
[2017-07-15] MEDS ORDERED: SODIUM CHLORIDE 1,000 ML IV STA ×2 (05:25→07:32)
--- NOTE | 2017-07-15 05:31 | PDOC ---
History of Present Illness - General Stated Complaint: CHEST PAIN Time Seen by Provider: 07/15/17 05:10 History Source: Patient Exam Limitations: No Limitations - History of Present Illness Initial Comments: 07/15/17 05:26 Patient is a 57F with history of DM (on metformin), HTN, HLD, and nstemi here today complaining of chest pain that woke her from sleep at 3am. The pain was located substernally and radiated to both sides of her chest. The pain was associated with nausea and diaphoresis. The pain was not changed with inspiration or palpation. The pain is better now, but still present. The pain is described as a discomfort. Patient denies a history of blood clots, leg swelling, and recent periods of immobilization. Past History - Past Medical History Allergies/Adverse Reactions: Allergies Allergy/AdvReac Type Severity Reaction Status Date / Time No Known Allergies Allergy Verified 07/15/17 05:40 Home Medications: Ambulatory Orders Amlodipine Besylate [Norvasc -] 10 mg PO DAILY 01/18/12 Lisinopril [Prinivil] 10 mg PO DAILY 01/18/12 Metformin HCl [Glucophage] 1,000 mg PO BID 01/18/12 Aspirin [ASA -] 81 mg PO DAILY 04/24/15 Atorvastatin Ca [Lipitor] 80 mg PO HS 04/24/15 Carvedilol [Coreg -] 6.25 mg PO BID 04/24/15 Clopidogrel Bisulfate [Plavix -] 75 mg PO DAILY 04/24/15 Repaglinide [Prandin] 2 mg PO TID 04/24/15 Amox-Tr/K Cl [Augmentin 875-125mg Tablet -] 1 tab PO BID@0800,1730 #20 tablet Insulin (Levemir) [Levemir Vial] 10 units SQ AM@0700 #1 ml 02/20/17 Metformin HCl [Glucophage -] 1,000 mg PO BID@0700,1630 tablet 02/20/17 Anemia: No Asthma: No Cardiac Disorders: Yes (stents 3) Diabetes: Yes (niddm) GI Disorders: Yes (peptic ulcer) HTN: Yes Hypercholesterolemia: No - Surgical History Abdominal Surgery: No Cardiac Surgery: Yes (stents) - Immunization History Immunization Up to Date: Yes - Suicide/Smoking/Psychosocial Hx Smoking Status: Yes Smoking History: Never smoked Have you smoked in the past 12 months: No Number of Cigarettes Smoked Daily: 0 If you are a former smoker, when did you quit?: 10/2014 Hx Alcohol Use: No Drug/Substance Use Hx: No Substance Use Type: None Hx Substance Use Treatment: No Review of Systems - Review of Systems Comments:: 07/15/17 05:30 GENERAL/CONSTITUTIONAL: No fever or chills. No weakness. HEAD, EYES, EARS, NOSE AND THROAT: No change in vision. No sore throat. CARDIOVASCULAR: Positive for chest pain. Negative for shortness of breath RESPIRATORY: No cough, wheezing, or hemoptysis. GASTROINTESTINAL: Positive for nausea. Negative for vomiting, diarrhea or constipation. GENITOURINARY: No dysuria, frequency, or change in urination. SKIN: No rash NEUROLOGIC: No headache, vertigo, loss of consciousness, or change in strength/ sensation. HEMATOLOGIC/LYMPHATIC: No anemia, easy bleeding, or history of blood clots. ALLERGIC/IMMUNOLOGIC: No hives or skin allergy. *Physical Exam - Physical Exam Comments: 07/15/17 05:32 GENERAL: Awake, alert, and fully oriented, in no acute distress HEAD: No signs of trauma, normocephalic, atraumatic EYES: PERRLA, EOMI, sclera anicteric, conjunctiva clear ENT: Auricles normal inspection, hearing grossly normal, nares patent, oropharynx clear without exudates. Moist mucosa LUNGS: No distress, speaks full sentences, clear to auscultation bilaterally HEART: Regular rate and rhythm, normal S1 and S2, no murmurs, rubs or gallops, peripheral pulses normal and equal bilaterally. ABDOMEN: Soft, nontender, normoactive bowel sounds. No guarding, no rebound. No masses NEUROLOGICAL: Cranial nerves II through XII grossly intact. Normal speech, normal gait, no focal sensorimotor deficits SKIN: Warm, Dry, normal turgor, no rashes or lesions noted. Heart Score/ECG Review - History History: Highly suspicious - Electrocardiogram EKG: Normal - Age Age: 45-65 - Risk Factors Risk Factors Heart Score: Yes Hx Hypercholesterolemia, Yes Hx Hypertension, Yes Hx Diabetes Based on the list above the patient has:: >/=3 risk factors or Hx atherosclerotic disease ED Treatment Course - LABORATORY CBC & Chemistry Diagram: 07/15/17 05:40 07/15/17 05:40 - RADIOLOGY Radiology Studies Ordered: Category Date Time Status CHEST PA & LAT [RAD] Stat Radiology 07/15/17 05:22 Ordered Medical Decision Making - Medical Decision Making 07/15/17 05:34 Patient is a 57F with history of DM, HTN, HLD, prior nstemi here with chest pain. Vital signs stable. Fingerstick performed, read as high. Will treat with 1L fluids and 162 aspirin. Will evaluate with cbc, cmp, mag, trop, ekg, cxr. HEART score of 5 before trop. Will admit for chest pain and hyperglycemia even if workup is negative. EKG shows normal sinus rhythm, normal rate, normal axis. No st elevations/ depressions, no t-wave inversions. No t wave abnormalities. 07/15/17 06:36 CXR shows no acute cardiopulmonary process. *DC/Admit/Observation/Transfer Diagnosis at time of Disposition: Chest pain, Hyperglycemia - Referrals Referrals: Alvarado Nj MD [Primary Care Provider] - - Patient Instructions - Post Discharge Activity
[2017-07-15 05:43] VITALS: BMI 35.5
[2017-07-15 06:02] LABS: BASO % 0.8 % (0-2.0); HEMOGLOBIN 10.6 GM/dL (10.7-15.3); MCH 26.4 pg (25.7-33.7); MCHC 32.1 g/dl (32.0-36.0); MEAN CELL VOLUME 82.3 fl (80-96); MEAN PLT VOLUME 10.9 fl (7.5-11.1); MONO % 6.1 % (3.8-10.2); NEUT % 46.1 % (42.8-82.8); PLATELET COUNT 253 K/MM3 (134-434); RBC 4.01 M/mm3 (3.60-5.2); RDW 15.3 % (11.6-15.6); WHITE BLOOD COUNT 4.9 K/mm3 (4.0-10.0)
[2017-07-15 06:16] LABS: INR 0.96 (0.82-1.09); PROTHROMBIN TIME (PATIENT) 10.9 SEC (9.98-11.88)
[2017-07-15 06:30] LABS: ALBUMIN 3.4 g/dl (3.4-5.0); ANION GAP 4 (8-16); BILIRUBIN,TOTAL 0.3 mg/dL (0.2-1.0); BLOOD UREA NITROGEN 21 mg/dL (7-18); CALCIUM 8.7 mg/dL (8.5-10.1); CHLORIDE 99 mmol/L (98-107); CO2 30 mmol/L (21-32); MAGNESIUM 1.9 mg/dL (1.8-2.4); POTASSIUM 4.4 mmol/L (3.5-5.1); SGOT/AST 12 U/L (15-37); SGPT/ALT 22 U/L (12-78); SODIUM 133 mmol/L (136-145); TOT PROT 7.1 g/dl (6.4-8.2)
[2017-07-15 06:33] LABS: ALK PHOS 80 U/L (45-117)
--- NOTE | 2017-07-15 06:54 | PDOC ---
Attending Attestation - HPI HPI: 07/15/17 06:54 The patient is a 57 year old female with a significant PMH of HTN, hyperlipidemia, past NSTEMI, CAD, and diabetes who presents to the emergency department with chest pain beginning approximately 2 hours ago. The patient describes her chest pain as a substernal discomfort with associated nausea and diaphoresis, which woke her from sleep at about 3AM. She denies aggravating or alleviating factors. Allergies: NKA <Mahamed Gonzalez - Last Filed: 07/15/17 06:54> - Resident Resident Name: [place] - ED Attending Attestation I have performed the following: I have examined & evaluated the patient, The case was reviewed & discussed with the resident, I agree w/resident's findings & plan, Exceptions are as noted - Physicial Exam PE: 07/18/17 19:28 Physical Exam General Appearance: Yes: Appropriately Dressed. No: Apparent Distress, Intoxicated HEENT: positive: EOMI, JOURDAN, Normal ENT Inspection, Normal Voice, TMs Normal, Pharynx Normal. negative: Pale Conjunctivae, Photophobia, Scleral Icterus (R), Scleral Icterus (L) Neck: positive: Trachea midline, Normal Thyroid, Supple. negative: Tender, Rigid, Carotid bruit, Stridor, Lymphadenopathy (R), Lymphadenopathy (L), Thyromegaly Respiratory/Chest: positive: Lungs Clear, Normal Breath Sounds. negative: Chest Tender, Respiratory Distress, Accessory Muscle Use, Labored Respiration, RES, Crackles, Rales, Rhonchi, Stridor, Wheezing, Dullness Cardiovascular: positive: Regular Rhythm, Regular Rate, S1, S2. negative: Edema , JVD, Murmur, Bradycardia, Tachycardia Vascular Pulses: Dorsalis-Pedis (R): 2+, Doralis-Pedis (L): 2+ Gastrointestinal/Abdominal: positive: Normal Bowel Sounds, Flat, Soft. negative : Tender, Organomegaly, Pulsatile Mass, Increased Bowel Sounds, Decreased BS, Distended, Guarding, Rebound, Hernia, Hepatomegaly, Spleenomegaly Lymphatic: negative: Adenopathy, Tenderness Musculoskeletal: positive: Normal Inspection. negative: CVA Tenderness, Decreased Range of Motion Extremity: positive: Normal Capillary Refill, Normal Inspection, Normal Range of Motion, Pelvis Stable. negative: Tender, Pedal Edema, Swelling, Erythema Integumentary: positive: Normal Color, Dry, Warm. negative: Cyanotic, Erythema , Jaundice, Rash Neurologic: positive: water conservationist II-XII NML intact, Fully Oriented, Alert, Normal Mood/ Affect, Motor Strength 5/5. negative: EOM Palsy, Facial Droop, Sensory Deficit - Medical Decision Making 07/18/17 19:29 Pt was admitted for further treatment and evaluation <Derek Fabian - Last Filed: 07/18/17 19:30>
--- NOTE | 2017-07-15 07:16 | PDOC ---
*Physical Exam - Vital Signs Last Vital Signs Temp Pulse Resp BP Pulse Ox 98.9 F 86 18 166/91 100 07/15/17 05:41 07/15/17 05:41 07/15/17 05:41 07/15/17 05:41 07/15/17 05:59 - Physical Exam Comments: 07/15/17 09:57 General Appearance: Nourished. No Apparent Distress HEENT: EOMI, JOURDAN. Neck: No Cervical Lymphadenopathy Respiratory/Chest: Lungs Clear, Normal Breath Sounds. No Crackles, Rales, Rhonchi, Wheezing Cardiovascular: Regular Rhythm, Regular Rate. No Murmur, Gallops, Rubs Gastrointestinal/Abdominal: Normal Bowel Sounds, Soft. No Guarding, Rebound, Tenderness Musculoskeletal: No CVA Tenderness Extremity: Normal Capillary Refill Integumentary: Normal Color, Dry, Warm Neurologic: Fully Oriented, Alert, Normal Mood/Affect, Normal Response, ED Treatment Course - LABORATORY CBC & Chemistry Diagram: 07/15/17 05:40 07/15/17 05:40 - ADDITIONAL ORDERS Additional order review: Laboratory Results 07/15/17 05:40 PT with INR 10.90 INR 0.96 07/15/17 05:40 RBC 4.01 MCV 82.3 MCHC 32.1 RDW 15.3 MPV 10.9 Neutrophils % 46.1 Lymphocytes % 45.0 H Monocytes % 6.1 Eosinophils % 2.0 Basophils % 0.8 - Medications Given in the ED: ED Medications Discontinued Medications Generic Name Dose Route Start Last Admin Trade Name Freq PRN Reason Stop Dose Admin Aspirin 162 mg 07/15/17 05:22 07/15/17 05:56 Asa - PO 07/15/17 05:23 162 mg ONCE ONE Administration Sodium Chloride 1,000 mls @ 1,000 mls/hr 07/15/17 05:25 07/15/17 05:56 Normal Saline - IV 07/15/17 06:24 1,000 mls/hr ASDIR STA Administration Progress Note - Progress Note Progress Note: Received sign out from Dr. Matute. The patient is a 57 year old female with a history of DM (on metformin), HTN, HLD, NSTEMI who presented for evaluation of chest pain that woke her from sleep at 3am. The patient was found to by hyperglycemic to 400+ as well. She is pending cmp and likely tele admission. Medical Decision Making - Medical Decision Making 07/15/17 08:59 CMP demonstrates a glucose of 448. Troponin is negative. We believe the patient requires tele obs admission at this time for further management. We will treat the patient's hyperglycemia with more iv fluids at this time. 07/15/17 09:59 Patient remains hyperglycemic despite fluid rehydration. We will treat with 4 units of insulin. We discussed the case with Dr. Pride who accepted the patient for admission. *DC/Admit/Observation/Transfer Diagnosis at time of Disposition: Hyperglycemia Chest pain Qualifiers: Chest pain type: unspecified Qualified Code(s): R07.9 - Chest pain, unspecified - Discharge Dispostion Condition at time of disposition: Stable Admit: Yes - Referrals Referrals: Alvarado Nj MD [Primary Care Provider] - - Patient Instructions - Post Discharge Activity
[2017-07-15 07:28] LABS: GLUCOSE,RANDOM 448 mg/dL (74-106)
[2017-07-15 07:57] LABS: URINE APPEARANCE CLEAR; URINE BILIRUBIN NEGATIVE (NEGATIVE); URINE BLOOD NEGATIVE (NEGATIVE); URINE COLOR STRAW; URINE GLUCOSE (UA) 3+ (NEGATIVE); URINE KETONE NEGATIVE (NEGATIVE); URINE LEUK ESTERASE NEGATIVE (NEGATIVE); URINE NITRITE NEGATIVE (NEGATIVE); URINE UROBILINOGEN NEGATIVE mg/dL (0.2-1.0)
[2017-07-15 08:04] LABS: URINE PROTEIN 1+ (NEGATIVE)
[2017-07-15 08:06] LABS: EPI CELLS RARE /HPF (FEW)
--- NOTE | 2017-07-15 09:08 | CON.CARD ---
Cardiology Consult (text) - Consultation Consultation Note: IMP: Full consult dictated CAD s/p PCI x 3 2014, h/o PA DM Atypical CP Hyperglycemia REC: Second enzyme at noon Echo Stress MIBI this afternoon Glucose control
[2017-07-15] MEDS ORDERED: INSULIN REGULAR HUMAN 100 UNITS/ML *VIAL SQ ONE (09:18)
--- NOTE | 2017-07-15 09:39 | EKG ---
Test Reason : Blood Pressure : / mmHG Vent. Rate : 093 BPM Atrial Rate : 093 BPM P-R Int : 162 ms QRS Dur : 074 ms QT Int : 348 ms P-R-T Axes : 057 000 047 degrees QTc Int : 432 ms NORMAL SINUS RHYTHM MINIMAL VOLTAGE CRITERIA FOR LVH, MAY BE NORMAL VARIANT BORDERLINE ECG Confirmed by MD MAINOR, ANAT ([id number]) on 07/15/2017 9:39:03 AM Referred By: Confirmed By:ANAT HAYWARD MD
--- NOTE | 2017-07-15 10:55 | CONS ---
DATE OF CONSULTATION: 07/15/2017 REQUESTING: Mark Golden REASON FOR CONSULTATION: Chest pain. HISTORY OF PRESENT ILLNESS: The patient is a 57-year-old female with diabetes, hypertension, and coronary disease status post 3 drug-eluting stents in March of 2015, and history of myocardial infarction. She came to the ER this morning after awakening with substernal chest discomfort described as a pinching sensation in the center of her chest and laterally across both breasts lasting several seconds. No associated diaphoresis or shortness of breath. She describes mild nausea/sensation of gas. This was unlike her previous angina symptoms. She has not had any recent exertional chest pain, shortness of breath, palpitations, dizziness, lightheadedness, or syncope. PAST MEDICAL HISTORY: Includes hypertension, diabetes, and coronary disease. ALLERGIES: She has no allergies. HOME MEDICATIONS: Include metformin 1000 b.i.d. which she has not taken for the last 2 days, Prinivil 10 mg daily, Plavix 75 daily, Coreg 6.25 b.i.d., Lipitor 80, aspirin 81 daily, Norvasc 10 daily. . SOCIAL HISTORY: Nonsmoker. FAMILY HISTORY: No early coronary disease. PHYSICAL EXAMINATION: General: No distress. Vital signs: Temperature 98.9 Fahrenheit, pulse is 86 and regular, blood pressure is 166/91, 100% on room air. Anicteric. Neck: No bruits. Heart: S1, S2, regular. Soft systolic murmur right sternal border. Chest: Clear. Abdomen: Soft, nontender. Extremities: No edema. DIAGNOSTIC DATA: EKG showed sinus at 93 beats per minute with LVH, no acute changes. First cardiac enzyme was negative. CBC was normal. INR 0.96. Sodium 133, glucose 448, no ketones, creatinine 1.0. CK troponin negative x1 set. Urinalysis showed 1+ protein, 3+ glucose, no ketones. Toxicology screen showed no acetone. Chest x-ray was negative. IMPRESSION: Multiple risk factors including diabetes and known coronary disease with prior myocardial infarction, percutaneous coronary intervention x3 2014, now with atypical chest pain. PLAN: 1. Aspirin. 2. Echocardiogram now. 3. Second enzyme at noon. 4. Nuclear stress test planned for later this afternoon. 5. Glucose control. Thank you for the consultation. If stress test is unremarkable and enzymes are negative, she may be discharged later today with outpatient followup with Dr. Brown. Tony [id number]
--- NOTE | 2017-07-15 18:29 | HP ---
Admitting History and Physical - Admission History of Present Illness: Pt is a morbidly obese 57 y/o female with PMH significant for HTN, HLD, CAD(s/p cardiac stents), AL, diabetes, GERD and depression. Pt was in her USOH when she awoke from sleep w/ SSCP that radiated to both sides of chest. Pt thinks she may have also felt SOB w/ associated nausea but not vomiting or abdominal pain. Pt denies any palpitations/cough/wheezing/fever/chills. In the ER pt's troponin was negative but her glucose was elevated and she was given insulin. - Past Medical History Cardiovascular: Yes: CAD (s/p NSTEMI and 2 blanca pci 03/2015), HTN, Hyperlipdemia , [place] Gastrointestinal: Yes: GERD Psych: Yes: Anxiety, Depression Endocrine: Yes: Diabetes Mellitus - Past Surgical History Additional Past Surgical History: Cardiac stents - Smoking History Smoking history: Never smoked Have you smoked in the past 12 months: No Aproximately how many cigarettes per day: 0 If you are a former smoker, when did you quit?: 10/2014 - Alcohol/Substance Use Hx Alcohol Use: No Home Medications - Allergies Allergies/Adverse Reactions: Allergies Allergy/AdvReac Type Severity Reaction Status Date / Time No Known Allergies Allergy Verified 07/15/17 05:40 - Home Medications Home Medications: Ambulatory Orders Amlodipine Besylate [Norvasc -] 10 mg PO DAILY 01/18/12 Lisinopril [Prinivil] 10 mg PO DAILY 01/18/12 Aspirin [ASA -] 81 mg PO DAILY 04/24/15 Atorvastatin Ca [Lipitor] 80 mg PO HS 04/24/15 Carvedilol [Coreg -] 6.25 mg PO BID 04/24/15 Clopidogrel Bisulfate [Plavix -] 75 mg PO DAILY 04/24/15 Metformin HCl [Glucophage -] 1,000 mg PO BID@0700,1630 tablet 02/20/17 Family Disease History - Family Disease History Family History: Unremarkable Review of Systems - Review of Systems Constitutional: reports: No Symptoms Eyes: reports: No Symptoms HENT: reports: No Symptoms Neck: reports: No Symptoms Cardiovascular: reports: Chest Pain, Shortness of Breath Respiratory: reports: SOB Gastrointestinal: reports: Nausea Physical Examination Vital Signs: Vital Signs Temperature 98.0 F 07/15/17 15:03 Pulse Rate 78 07/15/17 15:03 Respiratory Rate 16 07/15/17 15:03 Blood Pressure 139/75 07/15/17 15:03 O2 Sat by Pulse Oximetry (%) 99 07/15/17 15:03 Constitutional: Yes: Well Nourished Eyes: Yes: WNL HENT: Yes: WNL Neck: Yes: WNL, Supple Cardiovascular: Yes: WNL, Regular Rate and Rhythm Respiratory: Yes: WNL, Regular, CTA Bilaterally Gastrointestinal: Yes: WNL, Normal Bowel Sounds, Soft, Abdomen, Obese Musculoskeletal: Yes: WNL Extremities: Yes: WNL Edema: No Neurological: Yes: WNL, Alert, Oriented ...Motor Strength: WNL Labs: CBC, BMP 07/15/17 05:40 07/15/17 05:40 Problem List - Problems (1) Chest pain Assessment/Plan: Admitted to [facility] Serial cpk/troponin have been negative Stress test showed francisco/apical ischemia Pt to be transferred to [facility](as esdras pt's request) for cardiac cath due to history of CAD Cont asa Code(s): R07.9 - CHEST PAIN, UNSPECIFIED Qualifiers: Chest pain type: unspecified Qualified Code(s): R07.9 - Chest pain, unspecified (2) Diabetes mellitus Assessment/Plan: Pt glucose was elevated Acetone negative Cont present regimen Code(s): E11.9 - TYPE 2 DIABETES MELLITUS WITHOUT COMPLICATIONS Qualifiers: Diabetes mellitus type: type 2 Diabetes mellitus complication status: with hyperglycemia (3) HTN (hypertension), benign Assessment/Plan: BP stable Code(s): I10 - ESSENTIAL (PRIMARY) HYPERTENSION (4) HLD (hyperlipidemia) Code(s): E78.5 - HYPERLIPIDEMIA, UNSPECIFIED (5) Depression Code(s): F32.9 - MAJOR DEPRESSIVE DISORDER, SINGLE EPISODE, UNSPECIFIED (6) GERD (gastroesophageal reflux disease) Code(s): K21.9 - GASTRO-ESOPHAGEAL REFLUX DISEASE WITHOUT ESOPHAGITIS (7) Morbid obesity Code(s): E66.01 - MORBID (SEVERE) OBESITY DUE TO EXCESS CALORIES
--- NOTE | 2017-07-16 09:34 | PN ---
Progress Note, Physician History of Present Illness: Patient is a 57F with history of DM (on metformin), HTN, HLD, and nstemi here today complaining of chest pain that woke her from sleep at 3am. The pain was located substernally and radiated to both sides of her chest. The pain was associated with nausea and diaphoresis. The pain was not changed with inspiration or palpation. The pain is better now, but still present. The pain is described as a discomfort. Patient denies a history of blood clots, leg swelling, and recent periods of immobilization. - Objective Vital Signs: Vital Signs Temperature 98.1 F 07/16/17 07:48 Pulse Rate 100 H 07/16/17 07:48 Respiratory Rate 18 07/16/17 07:57 Blood Pressure 137/69 07/16/17 07:48 O2 Sat by Pulse Oximetry (%) 98 07/16/17 07:57 Eyes: Yes: WNL, Conjunctiva Clear, EOM Intact HENT: Yes: WNL, Atraumatic, Normocephalic Neck: Yes: WNL, Supple, Trachea Midline Cardiovascular: Yes: WNL, Regular Rate and Rhythm Respiratory: Yes: WNL, Regular, CTA Bilaterally Gastrointestinal: Yes: WNL, Normal Bowel Sounds Genitourinary: Yes: WNL Musculoskeletal: Yes: WNL Extremities: Yes: WNL Edema: No Integumentary: Yes: WNL Neurological: Yes: WNL, Alert, Oriented ...Motor Strength: WNL Psychiatric: Yes: WNL Labs: CBC, BMP 07/15/17 05:40 07/15/17 05:40 INR, PTT INR 0.96 (0.82-1.09) 07/15/17 05:40 Assessment/Plan angina ashd htn hlp dm Plan; Stress MIBI shows old inferolateral NE but new moderate anterior/anteroapical ischemia. Given her prior hx of 3 stents, have recommended repeat cath. Patient agrees, would like to be transferred to [place] for cath; will contact Dr. De Souza to arrange.
[2017-07-16] MEDS: INSULIN SLIDING SCALE (NOVOLOG) 1 VIAL SQ SCH ×2 (11:56→15:30)
--- NOTE | 2017-07-16 12:21 | CONSULT ---
Consult Consult Specialty:: Endocrinology Referred by:: Tammy Pride Reason for Consultation:: Hyperglycemia - History of Present Illness Chief Complaint: Chest Pain History of Present Illness: This is a 57 y/o F with history of T2DM (on metformin) since 1987, on Insulin for a few months in 2013 when she had the stents, HTN, HLD, CAD s/p stents and nstemi admitted yesterday for chest pain that woke her from sleep at 3am. The pain was located substernally and radiated to both sides of her chest. The pain was associated with nausea and diaphoresis. Pt also found to be hyperglycemic and treated with Insulin. Pt says has been doing a fruit diet for about a week which probably raised her blood sugar. FS at home 160 to 170 as per pt. Doesn't know her A1c. No polyuria, polydipsia or nocturia. No visual symptoms, No paresthesia. Had eye exam around 2 years ago when she was advised to see a specialist which she hasn't done yet. Family h/o DM in sister. - History Source History Provided By: Patient, Medical Record - Past Medical History Cardio/Vascular: Yes: CAD (s/p NSTEMI and 2 blanca pci 03/2015), HTN, Hyperlipdemia , [place] Gastrointestinal: Yes: GERD ...: No Psych: Yes: Anxiety, Depression Endocrine: Yes: Diabetes Mellitus - Alcohol/Substance Use Hx Alcohol Use: No - Smoking History Smoking history: Former smoker Have you smoked in the past 12 months: No Aproximately how many cigarettes per day: 0 If you are a former smoker, when did you quit?: 10/2014 - Social History Usual Living Arrangement: With Significant Other Home Medications - Allergies Allergies/Adverse Reactions: Allergies Allergy/AdvReac Type Severity Reaction Status Date / Time No Known Allergies Allergy Verified 07/15/17 05:40 - Home Medications Home Medications: Ambulatory Orders Amlodipine Besylate [Norvasc -] 10 mg PO DAILY 01/18/12 Lisinopril [Prinivil] 10 mg PO DAILY 01/18/12 Aspirin [ASA -] 81 mg PO DAILY 04/24/15 Atorvastatin Ca [Lipitor] 80 mg PO HS 04/24/15 Carvedilol [Coreg -] 6.25 mg PO BID 04/24/15 Clopidogrel Bisulfate [Plavix -] 75 mg PO DAILY 04/24/15 Metformin HCl [Glucophage -] 1,000 mg PO BID@0700,1630 tablet 02/20/17 Family Disease History - Family Disease History Family Disease History: Diabetes: Sister Review of Systems - Review of Systems Constitutional: reports: No Symptoms Eyes: reports: No Symptoms HENT: reports: No Symptoms Neck: reports: No Symptoms Cardiovascular: reports: No Symptoms Respiratory: reports: No Symptoms Gastrointestinal: reports: No Symptoms Genitourinary: reports: No Symptoms Breasts: reports: No Symptoms Reported Musculoskeletal: reports: No Symptoms Neurological: reports: No Symptoms Endocrine: reports: No Symptoms Hematology/Lymphatic: reports: No Symptoms Psychiatric: reports: No Symptoms Physical Exam Vital Signs: Vital Signs Temperature 98.1 F 07/16/17 07:48 Pulse Rate 100 H 07/16/17 07:48 Respiratory Rate 18 07/16/17 07:57 Blood Pressure 137/69 07/16/17 07:48 O2 Sat by Pulse Oximetry (%) 98 07/16/17 07:57 Constitutional: Yes: No Distress, Calm Eyes: Yes: Conjunctiva Clear, EOM Intact HENT: Yes: Atraumatic, Normocephalic Neck: Yes: Supple, Trachea Midline Cardiovascular: Yes: Regular Rate and Rhythm Respiratory: Yes: Regular, CTA Bilaterally Gastrointestinal: Yes: Normal Bowel Sounds, Soft Musculoskeletal: Yes: WNL Extremities: Yes: WNL Edema: No Neurological: Yes: Alert, Oriented Labs: CBC, BMP 07/15/17 05:40 07/15/17 05:40 Problem List - Problems (1) Chest pain Code(s): R07.9 - CHEST PAIN, UNSPECIFIED Qualifiers: Chest pain type: unspecified Qualified Code(s): R07.9 - Chest pain, unspecified (2) CAD (coronary artery disease) Code(s): I25.10 - ATHSCL HEART DISEASE OF [place] CORONARY ARTERY W/O ANG PCTRS Qualifiers: Coronary Disease-Associated Artery/Lesion type: [place] artery [place] vs. transplanted heart: [place] heart Associated angina: without angina Qualified Code(s): I25.10 - Atherosclerotic heart disease of [place] coronary artery without angina pectoris (3) Diabetes mellitus Code(s): E11.9 - TYPE 2 DIABETES MELLITUS WITHOUT COMPLICATIONS Qualifiers: Diabetes mellitus type: type 2 Diabetes mellitus complication status: with hyperglycemia Assessment/Plan CAD S/P stents T2DM HTN Stress MIBI shows old inferolateral ND but new moderate anterior/anteroapical ischemia Pt going for Cath to [facility] as per cardiology one dose of Metformin for today only as she is going for cath Tuesday Levemir 10 units stat and daily Novolog SS coverage
[2017-07-16] MEDS ORDERED: INSULIN DETEMIR 100 UNITS/ML MDV SQ ONE (12:27)
[2017-07-16] MEDS ORDERED: metFORMIN HCL 500 MG TABLET (FP) PO ONE (12:31)
[2017-07-16] MEDS: amLODIPine BESYLATE 10 MG TABLET (FP) PO SCH (12:54)
[2017-07-16] MEDS: CLOPIDOGREL BISULFATE 75 MG TABLET (FP) PO SCH (12:54)
[2017-07-16] MEDS: ASPIRIN 81 MG CHEWABLE TABLETS PO SCH (12:54)
[2017-07-16] MEDS: CARVEDILOL 6.25 MG TABLET (FP) PO SCH ×2 (12:54→22:14)
[2017-07-16] MEDS: HEPARIN NA (PORCINE) 5,000 UNITS/ML 1ML VIAL SQ SCH ×2 (12:55→22:14)
[2017-07-16 13:28] LABS: ALBUMIN 3.2 g/dl (3.4-5.0); ALK PHOS 78 U/L (45-117); ANION GAP 6 (8-16); BILIRUBIN,TOTAL 0.3 mg/dL (0.2-1.0); BLOOD UREA NITROGEN 16 mg/dL (7-18); CALCIUM 8.3 mg/dL (8.5-10.1); CHLORIDE 106 mmol/L (98-107); CO2 27 mmol/L (21-32); CREATININE 0.9 mg/dL (0.55-1.02); GLUCOSE,RANDOM 217 mg/dL (74-106); POTASSIUM 3.6 mmol/L (3.5-5.1); SGOT/AST 8 U/L (15-37); SGPT/ALT 21 U/L (12-78); SODIUM 139 mmol/L (136-145); TOT PROT 6.9 g/dl (6.4-8.2)
[2017-07-16] MEDS ORDERED: metFORMIN HCL 500 MG TABLET (FP) PO SCH (16:30)
[2017-07-16] MEDS ORDERED: INSULIN SLIDING SCALE (NOVOLOG) 1 VIAL SQ SCH ×2 (16:30→22:00)
--- NOTE | 2017-07-16 18:50 | PN ---
Progress Note, Physician History of Present Illness: No further chest pain - Current Medication List Current Medications: Active Medications Amlodipine Besylate (Norvasc -) 10 mg PO DAILY [facility] Last Admin: 07/16/17 12:54 Dose: 10 mg Aspirin (Asa -) 81 mg PO DAILY [facility] Last Admin: 07/16/17 12:54 Dose: 81 mg Atorvastatin Calcium (Lipitor -) 80 mg PO HS [facility] Carvedilol (Coreg -) 6.25 mg PO BID [facility] Last Admin: 07/16/17 12:54 Dose: 6.25 mg Clopidogrel Bisulfate (Plavix -) 75 mg PO DAILY [facility] Last Admin: 07/16/17 12:54 Dose: 75 mg Heparin Sodium (Porcine) (Heparin -) 5,000 unit SQ BID [facility] Last Admin: 07/16/17 12:55 Dose: 5,000 unit Insulin Aspart (Novolog Vial Sliding Scale -) 1 vial SQ HS [facility] PRN Reason: Protocol Insulin Aspart (Novolog Vial Sliding Scale -) 1 vial SQ TIDAC [facility] PRN Reason: Protocol Last Admin: 07/16/17 15:30 Dose: 6 units Insulin Detemir (Levemir Vial) 10 units SQ DAILY [facility] Lisinopril (Prinivil) 10 mg PO DAILY [facility] - Objective Vital Signs: Vital Signs Temperature 98.4 F 07/16/17 18:00 Pulse Rate 70 07/16/17 18:00 Respiratory Rate 18 07/16/17 18:00 Blood Pressure 146/69 07/16/17 18:00 O2 Sat by Pulse Oximetry (%) 98 07/16/17 07:57 Constitutional: Yes: Well Nourished Eyes: Yes: WNL HENT: Yes: WNL Neck: Yes: WNL, Supple Cardiovascular: Yes: WNL, Regular Rate and Rhythm Respiratory: Yes: WNL, Regular, CTA Bilaterally Gastrointestinal: Yes: WNL, Normal Bowel Sounds, Soft, Abdomen, Obese Musculoskeletal: Yes: WNL Extremities: Yes: WNL Edema: No Labs: CBC, BMP 07/15/17 05:40 07/16/17 12:30 INR, PTT INR 0.96 (0.82-1.09) 07/15/17 05:40 Problem List - Problems (1) Chest pain Assessment/Plan: Cont tele Serial cpk/troponin have been negative Stress test showed franc[place]/apical ischemia Pt to be transferred to [facility](as esdras pt's request) for cardiac cath due to history of CAD Cont asa Code(s): R07.9 - CHEST PAIN, UNSPECIFIED Qualifiers: Chest pain type: unspecified Qualified Code(s): R07.9 - Chest pain, unspecified (2) Diabetes mellitus Assessment/Plan: Pt glucose was elevated Acetone negative Cont present regimen Code(s): E11.9 - TYPE 2 DIABETES MELLITUS WITHOUT COMPLICATIONS Qualifiers: Diabetes mellitus type: type 2 Diabetes mellitus complication status: with hyperglycemia (3) CAD (coronary artery disease) Code(s): I25.10 - ATHSCL HEART DISEASE OF [place] CORONARY ARTERY W/O ANG PCTRS Qualifiers: Coronary Disease-Associated Artery/Lesion type: [place] artery [place] vs. transplanted heart: [place] heart Associated angina: without angina Qualified Code(s): I25.10 - Atherosclerotic heart disease of [place] coronary artery without angina pectoris (4) GERD (gastroesophageal reflux disease) Code(s): K21.9 - GASTRO-ESOPHAGEAL REFLUX DISEASE WITHOUT ESOPHAGITIS (5) HLD (hyperlipidemia) Code(s): E78.5 - HYPERLIPIDEMIA, UNSPECIFIED (6) High blood pressure Code(s): I10 - ESSENTIAL (PRIMARY) HYPERTENSION Qualifiers: Hypertension type: essential hypertension Qualified Code(s): I10 - Essential (primary) hypertension (7) Morbid obesity Code(s): E66.01 - MORBID (SEVERE) OBESITY DUE TO EXCESS CALORIES
[2017-07-16] MEDS ORDERED: ATORVASTATIN CA 80 MG TABLET (FP) PO SCH (22:00)
[2017-07-17 05:58] VITALS: TEMP 98.6
[2017-07-17] MEDS: INSULIN SLIDING SCALE (NOVOLOG) 1 VIAL SQ SCH ×2 (06:12→10:59)
[2017-07-17 07:51] VITALS: BP 130/60; PULSE 68
--- NOTE | 2017-07-17 08:32 | PN ---
Progress Note, Physician History of Present Illness: Patient is a 57F with history of DM (on metformin), HTN, HLD, and nstemi here today complaining of chest pain that woke her from sleep at 3am. The pain was located substernally and radiated to both sides of her chest. The pain was associated with nausea and diaphoresis. The pain was not changed with inspiration or palpation. The pain is better now, but still present. The pain is described as a discomfort. Patient denies a history of blood clots, leg swelling, and recent periods of immobilization. - Current Medication List Current Medications: Active Medications Amlodipine Besylate (Norvasc -) 10 mg PO DAILY [facility] Last Admin: 07/16/17 12:54 Dose: 10 mg Aspirin (Asa -) 81 mg PO DAILY [facility] Last Admin: 07/16/17 12:54 Dose: 81 mg Atorvastatin Calcium (Lipitor -) 80 mg PO HS [facility] Last Admin: 07/16/17 22:14 Dose: 80 mg Carvedilol (Coreg -) 6.25 mg PO BID [facility] Last Admin: 07/16/17 22:14 Dose: 6.25 mg Clopidogrel Bisulfate (Plavix -) 75 mg PO DAILY [facility] Last Admin: 07/16/17 12:54 Dose: 75 mg Heparin Sodium (Porcine) (Heparin -) 5,000 unit SQ BID [facility] Last Admin: 07/16/17 22:14 Dose: 5,000 unit Insulin Aspart (Novolog Vial Sliding Scale -) 1 vial SQ HS [facility] PRN Reason: Protocol Last Admin: 07/16/17 22:43 Dose: Not Given Insulin Aspart (Novolog Vial Sliding Scale -) 1 vial SQ TIDAC [facility] PRN Reason: Protocol Last Admin: 07/17/17 06:12 Dose: Not Given Insulin Detemir (Levemir Vial) 10 units SQ DAILY [facility] Lisinopril (Prinivil) 10 mg PO DAILY [facility] - Objective Vital Signs: Vital Signs Temperature 98.6 F 07/17/17 07:47 Pulse Rate 68 07/17/17 07:47 Respiratory Rate 20 07/17/17 07:51 Blood Pressure 130/60 07/17/17 07:47 O2 Sat by Pulse Oximetry (%) 98 07/17/17 07:51 Eyes: Yes: WNL, Conjunctiva Clear, EOM Intact HENT: Yes: WNL, Atraumatic, Normocephalic Neck: Yes: WNL, Supple, Trachea Midline Cardiovascular: Yes: WNL, Regular Rate and Rhythm Respiratory: Yes: WNL, Regular, CTA Bilaterally Gastrointestinal: Yes: WNL, Normal Bowel Sounds Genitourinary: Yes: WNL Musculoskeletal: Yes: WNL Extremities: Yes: WNL Edema: No Integumentary: Yes: WNL Neurological: Yes: WNL, Alert, Oriented ...Motor Strength: WNL Psychiatric: Yes: WNL Labs: INR, PTT INR 0.96 (0.82-1.09) 07/15/17 05:40 Assessment/Plan angina ashd htn hlp dm Plan; Stress MIBI shows old inferolateral MT but new moderate anterior/anteroapical ischemia. Given her prior hx of 3 stents, have recommended repeat cath. Patient agrees, would like to be transferred to [place] for cath; will contact Dr. De Souza to arrange.
[2017-07-17 08:37] LABS: HEMATOCRIT 31.1 % (32.4-45.2); MCH 26.2 pg (25.7-33.7); MCHC 32.2 g/dl (32.0-36.0); MEAN CELL VOLUME 81.4 fl (80-96); MEAN PLT VOLUME 10.2 fl (7.5-11.1); PLATELET COUNT 237 K/MM3 (134-434); RBC 3.81 M/mm3 (3.60-5.2); RDW 15.2 % (11.6-15.6); WHITE BLOOD COUNT 5.7 K/mm3 (4.0-10.0)
[2017-07-17 08:58] LABS: ALBUMIN 2.8 g/dl (3.4-5.0); ANION GAP 6 (8-16); BILIRUBIN,TOTAL 0.4 mg/dL (0.2-1.0); BLOOD UREA NITROGEN 17 mg/dL (7-18); CHLORIDE 107 mmol/L (98-107); CO2 25 mmol/L (21-32); CREATININE 0.7 mg/dL (0.55-1.02); GLUCOSE,RANDOM 211 mg/dL (74-106); POTASSIUM 4.2 mmol/L (3.5-5.1); SGOT/AST 11 U/L (15-37); SGPT/ALT 20 U/L (12-78); SODIUM 138 mmol/L (136-145); TOT PROT 6.3 g/dl (6.4-8.2)
[2017-07-17 09:00] LABS: ALK PHOS 73 U/L (45-117)
[2017-07-17] MEDS: amLODIPine BESYLATE 10 MG TABLET (FP) PO SCH (09:03)
[2017-07-17] MEDS: HEPARIN NA (PORCINE) 5,000 UNITS/ML 1ML VIAL SQ SCH (09:04)
[2017-07-17] MEDS: CLOPIDOGREL BISULFATE 75 MG TABLET (FP) PO SCH (09:04)
[2017-07-17] MEDS: CARVEDILOL 6.25 MG TABLET (FP) PO SCH (09:04)
[2017-07-17] MEDS: ASPIRIN 81 MG CHEWABLE TABLETS PO SCH (09:04)
[2017-07-17] MEDS ORDERED: INSULIN DETEMIR 100 UNITS/ML MDV SQ SCH (10:00)
[2017-07-17] MEDS ORDERED: LISINOPRIL 10 MG TABLET (FP) PO SCH (10:00)
== END 2017-07-17 11:19 | disposition short-term general hospital (02) | DRG 303 ==
LOC: JER 05:02 → JERBED 09:42 → J4W 20:15 → OBSVTOIN 07-16 12:13
PROVIDERS: ADMIT Internal Medicine; ATTEND Internal Medicine
DX: I25.119 Atherosclerotic heart disease of native coronary artery with unspecified angina pectoris (principal); E11.65 Type 2 diabetes mellitus with hyperglycemia; I10 Essential (primary) hypertension; E78.5 Hyperlipidemia, unspecified; I25.2 Old myocardial infarction; Z79.4 Long term (current) use of insulin; I25.10 Atherosclerotic heart disease of native coronary artery without angina pectoris; Z95.5 Presence of coronary angioplasty implant and graft; K21.9 Gastro-esophageal reflux disease without esophagitis; F32.9 Major depressive disorder, single episode, unspecified; E66.01 Morbid (severe) obesity due to excess calories; Z68.35 Body mass index [BMI] 35.0-35.9, adult
CPT/HCPCS: 36415; 71046-TC; 78452-TC; 80053; 81003; 81015; 82009; 82550; 82962; 83735; 84484; 85025; 85027; 85610; 93005; 93010; 93017; 93306-TC; 99285-25; A9502; G0378; J1644

== ENCOUNTER 2018-01-19 17:52 | Emergency (ER) | payer OTHER ==
--- NOTE | 2018-01-19 18:18 | PDOC ---
Rapid Medical Evaluation Time Seen by Provider: 01/19/18 18:13 Medical Evaluation: Allergies Allergy/AdvReac Type Severity Reaction Status Date / Time No Known Allergies Allergy Verified 07/15/17 05:40 I have performed a brief in-person evaluation of this patient. The patient presents with a chief complaint of: SOB since this morning. recently returned from a car trip to [place]. Patient has cardiac stents and prior smoking history. Denies fever, cough, calf pain, leg swelling. Pertinent physical exam findings: CTAB I have ordered the following: labs, EKG, CXR The patient will proceed to the ED for further evaluation. Discharge Disposition - Diagnosis SOB (shortness of breath) - Referrals - Patient Instructions - Post Discharge Activity
[2018-01-19 18:19] VITALS: BP 151/57; PULSE 85; TEMP 98.4; BMI 29.7
[2018-01-19 19:09] LABS: BASO % 1.3 % (0-2.0); EOS % 1.9 % (0-4.5); HEMATOCRIT 29.8 % (32.4-45.2); HEMOGLOBIN 9.8 GM/dL (10.7-15.3); LYMPH % 35.7 % (8-40); MCH 27.2 pg (25.7-33.7); MCHC 32.8 g/dl (32.0-36.0); MEAN CELL VOLUME 82.7 fl (80-96); MEAN PLT VOLUME 9.6 fl (7.5-11.1); NEUT % 54.1 % (42.8-82.8); PLATELET COUNT 271 K/MM3 (134-434); RBC 3.61 M/mm3 (3.60-5.2); WHITE BLOOD COUNT 5.8 K/mm3 (4.0-10.0)
[2018-01-19 19:32] LABS: ALBUMIN 3.4 g/dl (3.4-5.0); ANION GAP 7 (8-16); BILIRUBIN,TOTAL 0.2 mg/dL (0.2-1.0); BLOOD UREA NITROGEN 28 mg/dL (7-18); CALCIUM 9.1 mg/dL (8.5-10.1); CHLORIDE 110 mmol/L (98-107); CO2 27 mmol/L (21-32); CREATININE 1.1 mg/dL (0.55-1.02); GLUCOSE,RANDOM 113 mg/dL (74-106); POTASSIUM 4.4 mmol/L (3.5-5.1); SGOT/AST 14 U/L (15-37); SGPT/ALT 23 U/L (12-78); SODIUM 144 mmol/L (136-145); TOT PROT 6.8 g/dl (6.4-8.2)
[2018-01-19 19:35] LABS: ALK PHOS 62 U/L (45-117); N-TERMINAL BNP 249.91 pg/ml (5-125)
--- NOTE | 2018-01-19 20:46 | PDOC ---
Attending Attestation - Resident Resident Name: ZairaAmanda - ED Attending Attestation I have performed the following: I have examined & evaluated the patient, The case was reviewed & discussed with the resident, I agree w/resident's findings & plan, Exceptions are as noted <Derek Fabian - Last Filed: 01/19/18 20:46> - HPI HPI: 01/19/18 21:06 The patient is a 57 year old female, with a significant PMH of HTN, hyperlipidemia, past NSTEMI, CAD, and diabetes mellitus, who presents to the emergency department with shortness of breath beginning this morning. The patient states she recently returned home from a trip to [place] this past Tuesday. The patient denies any recent palpitations , leg swelling, calf tenderness, lightheadedness or syncope. The patient denies chest pain, headache and dizziness. Denies fever, chills, nausea, vomit, diarrhea and constipation. Denies dysuria, frequency, urgency and hematuria. Allergies: NKA - Physicial Exam PE: 01/19/18 21:07 GENERAL: Well developed, well nourished. Awake and alert. No acute distress. HEENT: Normocephalic, atraumatic. PERRLA, EOMI. No conjunctival pallor. Sclera are non- icteric. Moist mucous membranes. Oropharynx is clear. NECK: Supple. Full ROM. No JVD. Carotid pulses 2+ and symmetric, without bruits. No thyromegaly. No lymphadenopathy. CARDIOVASCULAR: Regular rate and rhythm. No murmurs, rubs, or gallops. Distal pulses are 2+ and symmetric. PULMONARY: No evidence of respiratory distress. Lungs clear to auscultation bilaterally. No wheezing, rales or rhonchi. ABDOMINAL: Soft. Non-tender. Non-distended. No rebound or guarding. No organomegaly. Normoactive bowel sounds. MUSCULOSKELETAL Normal range of motion at all joints. No bony deformities or tenderness. No CVA tenderness. EXTREMITIES: No cyanosis. No clubbing. No edema. No calf tenderness. SKIN: Warm and dry. Normal capillary refill. No rashes. No jaundice. NEUROLOGICAL: Alert, awake, appropriate. Cranial nerves 2-12 intact. No deficits to light touch and temperature in face, upper extremities and lower extremities. No motor deficits in the in face, upper extremities and lower extremities. Normoreflexic in the upper and lower extremities. Normal speech. Toes are down- going bilaterally. Gait is normal without ataxia. PSYCHIATRIC: Cooperative. Good eye contact. Appropriate mood and affect. <Dwight Garcia - Last Filed: 01/19/18 21:34> Attestations - Attestations 01/19/18 21:07 Documentation prepared by Dwight Garcia, acting as phlebotomist medical lab assistant for Derek Fabian DO. <Dwight Garcia - Last Filed: 01/19/18 21:34>
[2018-01-19] MEDS ORDERED: CIPROFLOXACIN 250 MG TABLET (RESTRICTED TO ID) PO ONE (20:59)
[2018-01-19 21:30] LABS: URINE APPEARANCE CLEAR; URINE BILIRUBIN NEGATIVE (<2.0 mg/dL); URINE COLOR LTYELLOW; URINE GLUCOSE (UA) NEGATIVE (NEGATIVE); URINE KETONE NEGATIVE (NEGATIVE); URINE NITRITE NEGATIVE (NEGATIVE); URINE PROTEIN NEGATIVE (NEGATIVE); URINE UROBILINOGEN NEGATIVE mg/dL (0.2-1.0)
[2018-01-19 21:31] LABS: URINE LEUK ESTERASE 3+ (NEGATIVE)
--- NOTE | 2018-01-19 21:41 | PDOC ---
History of Present Illness - General Chief Complaint: Shortness of Breath Stated Complaint: SHORTNESS OF BREATH Time Seen by Provider: 01/19/18 18:13 History Source: Patient Exam Limitations: No Limitations - History of Present Illness Initial Comments: 01/19/18 21:53 HPI: Patient is a 57 year old female with PMH of [place] with 3 stents, HTN, DM presenting to ED with SOB which started this morning. Patient said she was lying down when she started to feel SOB, but was still able to go to work. She recently traveled to [place] and came back on Tuesday. Patient denies fever, cough, palpitations, abdominal pain, N/V/D. She does admit to feeling constipated. PMH: As per HPI. PSH: As per HPI. Meds: See med. rec Allergies: None Known Past History - Past Medical History Allergies/Adverse Reactions: Allergies Allergy/AdvReac Type Severity Reaction Status Date / Time No Known Allergies Allergy Verified 01/19/18 18:16 Home Medications: Ambulatory Orders Amlodipine Besylate [Norvasc -] 10 mg PO DAILY 01/18/12 Lisinopril [Prinivil] 10 mg PO DAILY 01/18/12 Aspirin [ASA -] 81 mg PO DAILY 04/24/15 Atorvastatin Ca [Lipitor] 80 mg PO HS 04/24/15 Clopidogrel Bisulfate [Plavix -] 75 mg PO DAILY 04/24/15 metFORMIN HCL [Glucophage -] 1,000 mg PO BID@0700,1630 tablet 02/20/17 Anemia: No Asthma: No Cardiac Disorders: Yes (stents 3) COPD: No Diabetes: Yes GI Disorders: Yes (peptic ulcer) HTN: Yes Hypercholesterolemia: Yes - Surgical History Abdominal Surgery: No Cardiac Surgery: Yes (stents) - Immunization History Immunization Up to Date: Yes - Suicide/Smoking/Psychosocial Hx Smoking Status: Yes Smoking History: Never smoked Have you smoked in the past 12 months: No Number of Cigarettes Smoked Daily: 0 If you are a former smoker, when did you quit?: 5 yrs ago Information on smoking cessation initiated: No Hx Alcohol Use: No Drug/Substance Use Hx: No Substance Use Type: None Hx Substance Use Treatment: No Review of Systems - Review of Systems Comments:: 01/19/18 21:56 ROS: Constitutional: No fevers, chills, fatigue, malaise HEENT: No Rhinorrhea, nasal congestion, visual changes Cardiovascular: No chest pain, syncope, palpitations, lightheadedness Respiratory: SOB. No Cough, Hemoptysis, Gastrointestinal: Constipation. No Abdominal pain, Nausea, Vomiting, Constipation, Diarrhea, Melena Genitourinary: No Dysuria, Frequency, Urgency, Hesitancy, Hematuria, Flank pain Musculoskeletal: No Myalgia, arthralgia Skin: No rashes, itching, bruising, pallor Neurologic: No Headache, Dizziness, Numbness, Weakness, or Tingling *Physical Exam - Vital Signs Last Vital Signs Temp Pulse Resp BP Pulse Ox 98.4 F 85 20 151/57 100 01/19/18 18:16 01/19/18 18:16 01/19/18 18:16 01/19/18 18:16 01/19/18 18:16 - Physical Exam Comments: 01/19/18 21:57 Physical Exam: General Appearance: Nourished. No Apparent Distress. Resting in bed comfortably HEENT: EOMI, JOURDAN. No Pharyngeal Erythema, Tonsillar Exudate, Tonsillar Erythema Neck: No Cervical Lymphadenopathy Respiratory/Chest: Lungs Clear, Normal Breath Sounds. No Crackles, Rales, Rhonchi, Wheezing Cardiovascular: Regular Rhythm, Regular Rate Pulses palpable bilaterally. No JVD, Murmur, Gallops, Rubs Gastrointestinal/Abdominal: Normal Bowel Sounds, Soft. No Guarding, Rebound, Tenderness Musculoskeletal: No CVA Tenderness Integumentary: Normal Color, Dry, Warm Neurologic: recovery room rn II-XII NML intact, Fully Oriented, Alert, Normal Mood/Affect, Normal Response ED Treatment Course - LABORATORY CBC & Chemistry Diagram: 01/19/18 19:02 01/19/18 19:02 - ADDITIONAL ORDERS Additional order review: Laboratory Results 01/19/18 01/19/18 19:02 09:11 Sodium 144 Potassium 4.4 Chloride 110 H Carbon Dioxide 27 Anion Gap 7 L BUN 28 H Creatinine 1.1 H Creat Clearance w eGFR 51.57 Random Glucose 113 H Calcium 9.1 Total Bilirubin 0.2 AST 14 L ALT 23 Alkaline Phosphatase 62 Creatine Kinase 132 Troponin I < 0.02 B-Natriuretic Peptide 249.91 H Total Protein 6.8 Albumin 3.4 Urine Color Ltyellow Urine Appearance Clear Urine pH 5.0 Ur Specific [place] 1.020 Urine Protein Negative Urine Glucose (UA) Negative Urine Ketones Negative Urine Blood Negative Urine Nitrite Negative Urine Bilirubin Negative Urine Urobilinogen Negative Ur Leukocyte Esterase 3+ H 01/19/18 19:02 RBC 3.61 MCV 82.7 MCHC 32.8 RDW 15.0 MPV 9.6 Neutrophils % 54.1 Lymphocytes % 35.7 D Monocytes % 7.0 Eosinophils % 1.9 Basophils % 1.3 Medical Decision Making - Medical Decision Making 01/19/18 21:58 Patient is a 57yo female with PMH of [place] s/p stent placement x3, HTN, DM presenting with SOB that started this AM. Recently traveled to [place]. No coughs or fevers/chills. DDX: PE, CHF, ACS, PNA, COPD, Asthma, PTX, Anxiety Patient has not had fever or cough, has no history of COPD or Asthma. EKG showed normal sinus rhythm with no new voltage changes. BNP slightly elevated at 249. Cardiac profile was negative and other chemistries were wnl. Lungs were clear on exam; no concern for CHF/ACS. Chest xray did not show cardiac enlargement or any consolidations/effusions. No concern for PE at this time: patient was not tachycardic, was saturating at 100% on RA, no leg swelling, no hemoptysis, no recent trauma or surgeries, no prior DVT or PE, no hormone use. Patient was saturating well on RA, BP and HR wnl. Patient said she was not feeling short of breath at the moment. After patient was told her results were wnl, she agreed with the decision to be discharged home. Patient was asked to follow up with PCP and ask for referral to government affairs manager. Patient was given strict return precautions and verbalized understanding. Patient was discharged home in stable condition. *DC/Admit/Observation/Transfer Diagnosis at time of Disposition: SOB (shortness of breath) - Discharge Dispostion Disposition: HOME Condition at time of disposition: Stable - Referrals Referrals: Alvarado Nj MD [Primary Care Provider] - - Patient Instructions Printed Discharge Instructions: DI for Shortness of Breath Additional Instructions: You were seen here today because you felt short of breath. We did an xray of your chest and did some blood work to see what may be causing the shortness of breath. Your Xray and blood work came back normal. Please follow up with Dr. Nj and ask about referral to a government affairs manager. If you continue to feel short of breath after activity or at rest, if you develop cough and fever, if you start feeling dizzy or lightheaded or if a new symptom develops then please come back to the emergency room. Thank you for visiting us today. - Post Discharge Activity
[2018-01-19 21:48] LABS: EPI CELLS RARE /HPF (FEW); URINE HYALINE CAST 1 /lpf; URINE MUCUS RARE
[2018-01-19 22:11] LABS: PROTHROMBIN TIME (PATIENT) 11.3 SEC (9.7-13.0)
--- NOTE | 2018-01-20 12:13 | EKG ---
Test Reason : Blood Pressure : / mmHG Vent. Rate : 085 BPM Atrial Rate : 085 BPM P-R Int : 154 ms QRS Dur : 074 ms QT Int : 368 ms P-R-T Axes : 052 -07 049 degrees QTc Int : 437 ms NORMAL SINUS RHYTHM POSSIBLE LEFT ATRIAL ENLARGEMENT LEFT VENTRICULAR HYPERTROPHY ABNORMAL ECG WHEN COMPARED WITH ECG OF 15-JUL-2017 05:12, NO SIGNIFICANT CHANGE WAS FOUND Confirmed by LORE LANDIN, CHI ([id number]) on 01/20/2018 12:12:48 PM Referred By: Confirmed By:CHI TORREZ MD
== END 2018-01-19 21:48 | disposition home or self-care (01) ==
LOC: JER 17:52
DX: R06.02 Shortness of breath (principal); I25.2 Old myocardial infarction; I25.10 Atherosclerotic heart disease of native coronary artery without angina pectoris; I10 Essential (primary) hypertension; Z95.5 Presence of coronary angioplasty implant and graft; E11.9 Type 2 diabetes mellitus without complications; Z79.84 Long term (current) use of oral hypoglycemic drugs; E78.00 Pure hypercholesterolemia, unspecified; Z87.19 Personal history of other diseases of the digestive system
CPT/HCPCS: 36415; 71046-TC-FY; 80053; 81003; 81015; 82550; 83880; 84484; 85025; 85379; 85610; 93005; 93010; 99282-25

== ENCOUNTER 2018-05-08 12:43 | Emergency (ER) | payer OTHER ==
[2018-05-08 13:16] VITALS: BP 168/78; PULSE 74; TEMP 98.4; BMI 32.8
[2018-05-08 14:59] LABS: BASO % 1.1 % (0-2.0); EOS % 1.1 % (0-4.5); HEMATOCRIT 31.6 % (32.4-45.2); HEMOGLOBIN 10.6 GM/dL (10.7-15.3); LYMPH % 44.4 % (8-40); MCH 27.7 pg (25.7-33.7); MCHC 33.5 g/dl (32.0-36.0); MEAN CELL VOLUME 82.6 fl (80-96); NEUT % 46.4 % (42.8-82.8); PLATELET COUNT 287 K/MM3 (134-434); RBC 3.83 M/mm3 (3.60-5.2); RDW 15.1 % (11.6-15.6); WHITE BLOOD COUNT 6.7 K/mm3 (4.0-10.0)
[2018-05-08 15:11] LABS: URINE APPEARANCE CLEAR; URINE BILIRUBIN NEGATIVE (<2.0 mg/dL); URINE COLOR YELLOW; URINE GLUCOSE (UA) NEGATIVE (NEGATIVE); URINE KETONE TRACE (NEGATIVE); URINE LEUK ESTERASE 2+ (NEGATIVE); URINE NITRITE NEGATIVE (NEGATIVE); URINE PROTEIN NEGATIVE (NEGATIVE)
[2018-05-08 15:12] LABS: INR 1.03 (0.83-1.09); PROTHROMBIN TIME (PATIENT) 12.2 SEC (9.7-13.0)
[2018-05-08 15:14] LABS: ACTIVATED PTT 27.3 SECONDS (25.2-36.5)
[2018-05-08 15:23] LABS: ALBUMIN 3.6 g/dl (3.4-5.0); ALK PHOS 64 U/L (45-117); ANION GAP 6 MMOL/L (8-16); BILIRUBIN,TOTAL 0.3 mg/dL (0.2-1); BLOOD UREA NITROGEN 27 mg/dL (7-18); CHLORIDE 105 mmol/L (98-107); CO2 28 mmol/L (21-32); GLUCOSE,RANDOM 63 mg/dL (74-106); POTASSIUM 4.2 mmol/L (3.5-5.1); SGOT/AST 24 U/L (15-37); SGPT/ALT 26 U/L (13-61); SODIUM 139 mmol/L (136-145); TOT PROT 7.3 g/dl (6.4-8.2)
[2018-05-08 15:31] LABS: EPI CELLS RARE /HPF (FEW); URINE HYALINE CAST 15 /lpf; URINE MUCUS RARE
--- NOTE | 2018-05-08 16:42 | PDOC ---
History of Present Illness - General Chief Complaint: Pain, Acute Stated Complaint: BACK PAIN Time Seen by Provider: 05/08/18 14:25 History Source: Patient Exam Limitations: No Limitations - History of Present Illness Initial Comments: 05/08/18 16:33 57 yr female with c/o fall 2 weeks ago slipped on wet step injured low back. Pt also suffers from constipation states she used enema 3 days ago with some relief. pt today with epigastric pain and low back pain comes and goes. neg nvd neg chest pain. Severity: mild Past History - Past Medical History Allergies/Adverse Reactions: Allergies Allergy/AdvReac Type Severity Reaction Status Date / Time No Known Allergies Allergy Verified 05/08/18 13:13 Home Medications: Ambulatory Orders Amlodipine Besylate [Norvasc -] 10 mg PO DAILY 01/18/12 Lisinopril [Prinivil] 10 mg PO DAILY 01/18/12 Aspirin [ASA -] 81 mg PO DAILY 04/24/15 Atorvastatin Ca [Lipitor] 80 mg PO HS 04/24/15 Clopidogrel Bisulfate [Plavix -] 75 mg PO DAILY 04/24/15 metFORMIN HCL [Glucophage -] 1,000 mg PO BID@0700,1630 tablet 02/20/17 Docusate Sodium [Colace] 100 mg PO BID #30 capsule 05/08/18 Polyethylene Glycol 3350 [Miralax (For Bowel Prep) -] 17 gm PO DAILY #1 bottle 05/08/18 Anemia: No Asthma: No Cardiac Disorders: Yes (stents 3) COPD: No Diabetes: Yes GI Disorders: Yes (peptic ulcer) HTN: Yes Hypercholesterolemia: Yes - Surgical History Abdominal Surgery: No Cardiac Surgery: Yes (stents) - Immunization History Immunization Up to Date: Yes - Suicide/Smoking/Psychosocial Hx Smoking Status: Yes Smoking History: Former smoker Have you smoked in the past 12 months: No Number of Cigarettes Smoked Daily: 0 If you are a former smoker, when did you quit?: 5 yrs ago Information on smoking cessation initiated: No Hx Alcohol Use: No Drug/Substance Use Hx: No Substance Use Type: None Hx Substance Use Treatment: No Review of Systems - Review of Systems Able to Perform ROS?: Yes Is the patient limited Wolof proficient: No Constitutional: No: Symptoms Reported HEENTM: No: Symptoms Reported Respiratory: No: Symptoms reported Cardiac (ROS): No: Symptoms Reported ABD/GI: Yes: Symptoms Reported Musculoskeletal: Yes: Symptoms Reported, Back Pain *Physical Exam - Vital Signs Last Vital Signs Temp Pulse Resp BP Pulse Ox 98.4 F 74 18 168/78 99 05/08/18 13:13 05/08/18 13:13 05/08/18 13:13 05/08/18 13:13 05/08/18 13:13 - Physical Exam General Appearance: Yes: Nourished, Appropriately Dressed HEENT: positive: EOMI, JOURDAN Neck: negative: Tender Respiratory/Chest: positive: Lungs Clear, Normal Breath Sounds. negative: Chest Tender Cardiovascular: positive: Regular Rhythm, Regular Rate Gastrointestinal/Abdominal: positive: Normal Bowel Sounds, Tender (epigastric ) , Soft Lymphatic: negative: Adenopathy Musculoskeletal: positive: Normal Inspection, Other (skin intact lower back lumbar soft tissue reproducable with pain). negative: CVA Tenderness, CVA Tenderness (R), CVA Tenderness (L), Decreased Range of Motion, Muscle Spasm, Vertebral Tenderness Extremity: positive: Normal Capillary Refill, Normal Inspection, Normal Range of Motion Integumentary: positive: Normal Color, Dry, Warm Neurologic: positive: master control engineer II-XII NML intact, Fully Oriented, Alert, Normal Mood/ Affect, Normal Response, Motor Strength 5/5 ED Treatment Course - LABORATORY CBC & Chemistry Diagram: 05/08/18 14:42 05/08/18 14:42 - ADDITIONAL ORDERS Additional order review: Laboratory Results 05/08/18 05/08/18 05/08/18 14:42 14:42 14:42 PT with INR 12.20 INR 1.03 PTT (Actin FS) 27.3 Sodium 139 Potassium 4.2 Chloride 105 Carbon Dioxide 28 Anion Gap 6 L BUN 27 H Creatinine 1.0 Creat Clearance w eGFR 57.56 Random Glucose 63 L Calcium 9.0 Total Bilirubin 0.3 AST 24 ALT 26 Alkaline Phosphatase 64 Total Protein 7.3 Albumin 3.6 Urine Color Yellow Urine Appearance Clear Urine pH 5.0 Ur Specific [place] 1.025 Urine Protein Negative Urine Glucose (UA) Negative Urine Ketones Trace H Urine Blood Negative Urine Nitrite Negative Urine Bilirubin Negative Urine Urobilinogen 2.0 H Ur Leukocyte Esterase 2+ H Urine WBC (Auto) 5 Urine RBC (Auto) 1 Ur Epithelial Cells Rare Hyaline Casts 15 Urine Mucus Rare 05/08/18 14:42 RBC 3.83 MCV 82.6 MCHC 33.5 RDW 15.1 MPV 9.0 Neutrophils % 46.4 Lymphocytes % 44.4 H D Monocytes % 7.0 Eosinophils % 1.1 Basophils % 1.1 - RADIOLOGY Radiology Studies Ordered: Category Date Time Status ABDOMEN & PELVIS CT WITH CONTR [CT] Stat CT Scan 05/08/18 14:42 Taken SPINE-LUMBAR SACRAL [RAD] Stat Radiology 05/08/18 14:43 Completed SPINE-THORACIC [RAD] Stat Radiology 05/08/18 14:43 Completed Medical Decision Making - Medical Decision Making 05/08/18 16:45 cc: fall 2 weeks ago hit lower back suffers from constipation c/o epigastric and low back pain will check labs, Ct abd/pelvis 05/08/18 17:[address] constipation ct is negative for any bleeding, again constipation is shown dc home strict follow up with PMD in 1-2 days for follow up pt agrees with the plan of care all questions asked and answered *DC/Admit/Observation/Transfer Diagnosis at time of Disposition: Constipation Qualifiers: Constipation type: unspecified constipation type Qualified Code(s): K59.00 - Constipation, unspecified - Discharge Dispostion Disposition: HOME Condition at time of disposition: Good - Prescriptions Prescriptions: Docusate Sodium [Colace] 100 mg PO BID #30 capsule Polyethylene Glycol 3350 [Miralax (For Bowel Prep) -] 17 gm PO DAILY #1 bottle - Referrals Referrals: Alvarado Nj MD [Primary Care Provider] - - Patient Instructions Printed Discharge Instructions: Increased Dietary Fiber May Improve Constipation Conditions With Pelvic [place], DI for Constipation Additional Instructions: follow with your doctor in 1-2 days for follow up take the medications as prescribed for constipation drink at least 2 liters of water a day high fiber diet - Post Discharge Activity
[2018-05-08] MEDS ORDERED: MAG HYDROX/AL HYDROX/SIMETH 30 ML UNIT-DOSE CUP PO ONE (16:50)
[2018-05-08] MEDS ORDERED: MAG HYDROX/AL HYDROX/SIMETH 30 ML UNIT-DOSE CUP ONE (16:54)
== END 2018-05-08 17:38 | disposition home or self-care (01) ==
LOC: JER 12:43 → JERFT 12:43
DX: K59.00 Constipation, unspecified (principal); M54.5 Low back pain; M54.6 Pain in thoracic spine; W10.8XXA Fall (on) (from) other stairs and steps, initial encounter; Y93.89 Activity, other specified; Y92.89 Other specified places as the place of occurrence of the external cause; Y99.8 Other external cause status; I25.10 Atherosclerotic heart disease of native coronary artery without angina pectoris; I10 Essential (primary) hypertension; Z95.5 Presence of coronary angioplasty implant and graft; E11.9 Type 2 diabetes mellitus without complications; Z79.84 Long term (current) use of oral hypoglycemic drugs; E78.00 Pure hypercholesterolemia, unspecified; Z87.11 Personal history of peptic ulcer disease
CPT/HCPCS: 36415; 72070-TC-FY; 72100-TC-FY; 74177-TC; 80053; 81003; 81015; 85025; 85610; 85730; 86850; 86900; 86901; 99282-25

== ENCOUNTER 2018-06-19 16:47 | Emergency (ER) | payer OTHER ==
--- NOTE | 2018-06-19 17:09 | PDOC ---
Rapid Medical Evaluation Chief Complaint: Pain Time Seen by Provider: 06/19/18 17:09 Medical Evaluation: Allergies Allergy/AdvReac Type Severity Reaction Status Date / Time No Known Allergies Allergy Verified 05/08/18 13:13 06/19/18 17:09 I have performed a brief in-person evaluation of this patient. The patient presents with a chief complaint of:epigastric pain after eating, bloating, no fevers. lasted over weekend , no meds to resolve, feels better with movement and pressing abd. Pertinent physical exam findings: well, with mild epigastic pain . I have ordered the following: EKG The patient will proceed to the ED for further evaluation. 06/19/18 17:13 Discharge Disposition - Diagnosis Stomach ache - Referrals Referrals: Alvarado Nj MD [Primary Care Provider] - - Patient Instructions - Post Discharge Activity
[2018-06-19 17:13] VITALS: BP 159/74; PULSE 75; TEMP 98.3; BMI 32.8
--- NOTE | 2018-06-19 20:52 | PDOC ---
History of Present Illness - General Chief Complaint: Pain Stated Complaint: Abdominal Pain Time Seen by Provider: 06/19/18 17:09 History Source: Patient Exam Limitations: No Limitations - History of Present Illness Initial Comments: HPI: 58 y/o female presenting to [facility] complaining of episodic discomfort in epigastric region since last Tuesday. Pt states the sensation is made worse with PO intake does not radiate to chest, lower abdomen, or back. Improves with direct pressure. Denies nausea/vomiting, diarrhea, or urinary symptoms. Last BM on last Tuesday. Pt states she has a history of similar symptoms one month ago. Was evaluated in this department with CT of abdomen, pelvis, thoracic, and lumbar spines, which revealed large stool burden concern for constipation. Pt was prescribed miralax and colace. States symptoms proved until she stopped taking the medication two weeks ago. PCP: Dr. Alvarado [facility] Hx: - Diabetes - HTN - CAD s/p stent 2013 and 2017 Past History - Past Medical History Allergies/Adverse Reactions: Allergies Allergy/AdvReac Type Severity Reaction Status Date / Time No Known Allergies Allergy Verified 06/19/18 20:16 Home Medications: Ambulatory Orders Amlodipine Besylate [Norvasc -] 10 mg PO DAILY 01/18/12 Lisinopril [Prinivil] 10 mg PO DAILY 01/18/12 Aspirin [ASA -] 81 mg PO DAILY 04/24/15 Atorvastatin Ca [Lipitor] 80 mg PO HS 04/24/15 Clopidogrel Bisulfate [Plavix -] 75 mg PO DAILY 04/24/15 metFORMIN HCL [Glucophage -] 1,000 mg PO BID@0700,1630 tablet 02/20/17 Bisacodyl Suppository [Dulcolax Suppository -] 10 mg RC DAILY #30 supp.rect Docusate Sodium [Colace -] 100 mg PO BID #14 capsule 06/19/18 Docusate Sodium [Colace] 100 mg PO BID PRN 06/19/18 Polyethylene Glycol 3350 [Miralax (For Bowel Prep) -] 17 gm PO DAILY PRN Polyethylene Glycol 3350 [Miralax 255 gm Btl -] 17 gm PO DAILY #1 bottle Anemia: No Asthma: No Cardiac Disorders: Yes (stents 3) COPD: No Diabetes: Yes GI Disorders: Yes (peptic ulcer) HTN: Yes Hypercholesterolemia: Yes - Surgical History Abdominal Surgery: No Cardiac Surgery: Yes (stents) - Immunization History Immunization Up to Date: Yes - Suicide/Smoking/Psychosocial Hx Smoking Status: Yes Smoking History: Never smoked Have you smoked in the past 12 months: No Number of Cigarettes Smoked Daily: 0 If you are a former smoker, when did you quit?: 5 yrs ago Information on smoking cessation initiated: No Hx Alcohol Use: No Drug/Substance Use Hx: No Substance Use Type: None Hx Substance Use Treatment: No Review of Systems - Review of Systems Able to Perform ROS?: Yes Comments:: In addition to that documented in the HPI above, the additional ROS was obtained : Constitutional: Denies fevers or chills ENMT: Denies sore throat CV: Denies chest pain Resp: Denies SOB GI: Denies vomiting or diarrhea : Denies dysuria, hematuria, or urinary frequency *Physical Exam - Vital Signs Last Vital Signs Temp Pulse Resp BP Pulse Ox 98.3 F 75 16 159/74 100 06/19/18 17:09 06/19/18 17:09 06/19/18 17:09 06/19/18 17:09 06/19/18 17:09 - Physical Exam Comments: Constitutional: Well-developed, well-nourished obese female in no acute distress or obvious discomfort. Found sitting upright on edge of hospital bed. Alert and oriented x4. Answered all questions appropriately and completely. Speech was non-labored, non-pressured. HEENT: Normocephalic. No obvious external signs of trauma. Sclera white. Hearing grossly normal. No nasal discharge. Neck is supple, trachea is midline. Cardiovascular: Regular rate and regular rhythm. No murmur, rubs, clicks, or gallops. Peripheral pulses: Radial pulses full. Respiratory: Breathing unlabored. Equal chest rise and fall. Clear to auscultation bilaterally. No stridor, no wheezing, no rhonchi. Gastrointestinal: abdomen is soft, non-tender, non-distended. No overlying skin lesions or obvious signs of trauma. Neuro: Alert and oriented. Moving all four extremities spontaneously. Skin: Warm, dry, and intact. : No R or L CVA tenderness. Psych: Affect: appropriate. Mood: normal. Moderate Sedation - Procedure Monitoring Vital Signs: Procedure Monitoring Vital Signs Temperature 98.3 F 06/19/18 17:09 Pulse Rate 75 18 17:09 Respiratory Rate 16 06/19/18 17:09 Blood Pressure 159/74 06/19/18 17:09 O2 Sat by Pulse Oximetry (%) 100 06/19/18 17:09 Medical Decision Making - Medical Decision Making *Reviewed vital signs, nursing notes, and prior visit documentation (if available). 58 y/o female complaining of episodic discomfort in epigastric region with decrease in stooling. H/o of similar symptoms. Stopped taking bowel regimen medications that originally had improved symptoms. Denies chest pain, SOB, or change in exercise tolerance. Very low suspicion for ACS, but will obtain EKG and single troponin given cardiac history. Given pts thorough workup for same symptoms one month ago, do not believe further imaging or lab work is indicated at this time. Will prescribe Miralax, Colace, and Dulcolax suppository. Will refer to GI for outpatient follow up. EKG: Sinus rhythm with a ventricular rate of 79 bpm. Normal axis. Normal intervals. No ST segment elevation or depression. No hyperacute T waves. No pathologic Q waves. Troponin not elevated. Given very low suspicion for ACS as well as multiple day history of symptoms, will not order a repeat. Discussed laboratory results with pt. Answered all questions. Provided return precautions. Pt expressed verbal understanding and agreement with plan to discharge home with outpatient GI follow up. *DC/Admit/Observation/Transfer Diagnosis at time of Disposition: Stomach ache Constipation Qualifiers: Constipation type: unspecified constipation type Qualified Code(s): K59.00 - Constipation, unspecified - Discharge Dispostion Disposition: HOME Condition at time of disposition: Stable Decision to Admit order: No - Prescriptions Prescriptions: Bisacodyl Suppository [Dulcolax Suppository -] 10 mg RC DAILY #30 supp.rect Docusate Sodium [Colace -] 100 mg PO BID #14 capsule Polyethylene Glycol 3350 [Miralax 255 gm Btl -] 17 gm PO DAILY #1 bottle - Referrals Referrals: Alvarado Nj MD [Primary Care Provider] - Marshal Lugo DO [Staff Physician] - - Patient Instructions Printed Discharge Instructions: DI for Constipation Additional Instructions: You were seen today for abdominal pain, similar to what you had last month when you were diagnosed with constipation. This is likely the cause of your symptoms again today. Your blood work was normal today. I have renewed your prescriptions at [facility] and I have added a suppository. Take all the medications as instructed on the package insert. Do not take more than the recommended dose. You need to follow up with a GI (stomach) doctor. I have entered a referral for you to see one of the [facility] physicians. You will need to call to make an appointment. The number is included above. Go to the nearest emergency department if your condition worsens or you feel like you need additional emergency evaluation. Print Language: LUXEMBOURGER - Post Discharge Activity
--- NOTE | 2018-06-19 21:05 | PDOC ---
Attending Attestation - Resident Resident Name: Martin Donald - ED Attending Attestation I have performed the following: I have examined & evaluated the patient, The case was reviewed & discussed with the resident, I agree w/resident's findings & plan, Exceptions are as noted - HPI HPI: 06/19/18 21:00 58 F with h/o CAD/stents, DM, HLD, HTN presenting with epigastric bloating after eating x 1 week. Pt denies any N/V. Denies abdominal pain. Denies F/C. She states that she has chronic constipation. Last BM was 3 days ago. Pt states that every time she eats, she feels her abdomen get bloated. This typically subsides after an hour or so. Pt states that she had an episode today that was very uncomfortable, prompting her to come to the ED. HOwever, the sensation has since subsided. She now denies any symptoms whatsoever. Denies CP/SOB. Denies F/ C. She states she has been seen here for similar complaint in the past and told she was constipated. - Physicial Exam PE: 06/19/18 21:03 "GENERAL: Awake, alert, and fully oriented, in no acute distress. HEAD: No signs of trauma EYES: PERRLA, EOMI, sclera anicteric, conjunctiva clear ENT: Auricles normal inspection, hearing grossly normal, nares patent, oropharynx clear without exudates. Moist mucosa NECK: Nontender, no stepoffs, Normal ROM, supple, no lymphadenopathy, JVD, or masses LUNGS: Breath sounds equal, clear to auscultation bilaterally. No wheezes, and no crackles HEART: Regular rate and rhythm, normal S1 and S2, no murmurs, rubs or gallops ABDOMEN: Soft, nontender, normoactive bowel sounds. No guarding, no rebound. No masses EXTREMITIES: Normal range of motion, no edema. No clubbing or cyanosis. No cords, erythema, or tenderness NEUROLOGICAL: Cranial nerves II through XII intact. 5/5 strength and sensation in all extremities, Normal speech, normal gait, normal cerebellar function SKIN: Warm, Dry, normal turgor, no rashes or lesions noted. - Medical Decision Making 06/19/18 21:04 58 F with epigastric bloating after eating x 1 week, currently asymptomatic. Abdominal exam benign. Suspect gastritis vs gas pain 2/2 constipation. However, given h/o DE, will r/o ACS with EKG and trop. - EKG, troponin 06/19/18 21:05 EKG with no ischemic changes Trop negative Pt continues to be asymptomatic. Will DC with bowel regimen Pt is well appearing, with normal vitals. Clinically stable for DC at this time. I discussed the physical exam findings, ancillary test results and final diagnoses with the patient. I answered all of the patient's questions. The patient was satisfied with the care received and felt comfortable with the discharge plan and treatment plan. The patient agrees to follow up with the primary care physician within 24-72 hours.
[2018-06-19] MEDS ORDERED: BISACODYL 10 MG SUPP.RECT PR ONE (21:16)
[2018-06-19] MEDS ORDERED: POLYETHYLENE GLYCOL 3350 119 GM BTL PO ONE (21:17)
[2018-06-19] MEDS ORDERED: BISACODYL 10 MG SUPP.RECT RC ONE (21:21)
--- NOTE | 2018-06-20 16:28 | EKG ---
Test Reason : Blood Pressure : / mmHG Vent. Rate : 079 BPM Atrial Rate : 079 BPM P-R Int : 160 ms QRS Dur : 072 ms QT Int : 376 ms P-R-T Axes : 058 -03 017 degrees QTc Int : 431 ms NORMAL SINUS RHYTHM NORMAL ECG Confirmed by MD MAINOR, ANAT ([id number]) on 06/20/2018 4:27:54 PM Referred By: Confirmed By:ANAT HAYWARD MD
== END 2018-06-19 21:48 | disposition home or self-care (01) ==
LOC: JER 16:47
DX: R10.13 Epigastric pain (principal); K59.00 Constipation, unspecified; I10 Essential (primary) hypertension; E78.00 Pure hypercholesterolemia, unspecified; Z95.5 Presence of coronary angioplasty implant and graft; E11.9 Type 2 diabetes mellitus without complications
CPT/HCPCS: 36415; 84484; 93005; 93010; 99283-25

== ENCOUNTER 2021-09-29 10:35 | Observation (INO) | payer OTHER ==
[2021-09-29] MEDS ORDERED: FAMOTIDINE 20 MG/50 ML IVPB 20 MG in PREMIX 50 IVPB ONE (11:26)
[2021-09-29] MEDS ORDERED: MAG HYDROX/AL HYDROX/SIMETH -MYLANTA- ORAL SUSPENSION PO ONE (11:26)
[2021-09-29] MEDS ORDERED: ONDANSETRON 4 MG/2 ML VIAL IVPB ONE (11:26)
[2021-09-29] MEDS ORDERED: SUCRALFATE 1 GM TABLET (FP) PO ONE (11:28)
[2021-09-29] MEDS ORDERED: SUCRALFATE 1 GM TABLET (FP) ONE (11:53)
[2021-09-29] MEDS ORDERED: FAMOTIDINE 20 MG/50 ML IVPB 20 MG/50 ML MG IVPB ONE (11:54)
[2021-09-29] MEDS ORDERED: MAG HYDROX/AL HYDROX/SIMETH 30 ML UNIT-DOSE CUP ONE (11:54)
[2021-09-29] MEDS ORDERED: ONDANSETRON 4 MG/2 ML VIAL ONE (11:54)
[2021-09-29 12:36] LABS: BASO % 0.8 % (0-2.0); EOS % 1.1 % (0-4.5); HEMATOCRIT 32.5 % (32.4-45.2); HEMOGLOBIN 10.5 GM/dL (10.7-15.3); LYMPH % 35.4 % (8-40); MCH 26.7 pg (25.7-33.7); MCHC 32.4 g/dl (32.0-36.0); MEAN CELL VOLUME 82.4 fl (80-96); MEAN PLT VOLUME 9.8 fl (7.5-11.1); MONO % 6.4 % (3.8-10.2); NEUT % 56.3 % (42.8-82.8); PLATELET COUNT 293 10^3/uL (134-434); RBC 3.95 M/mm3 (3.60-5.2); RDW 15.7 % (11.6-15.6); WHITE BLOOD COUNT 5.8 K/mm3 (4.0-10.0)
[2021-09-29 12:47] LABS: CALCIUM 9.4 mg/dL (8.5-10.1)
[2021-09-29 12:48] LABS: ALBUMIN 3.6 g/dl (3.4-5.0); BLOOD UREA NITROGEN 24.8 mg/dL (7-18)
[2021-09-29 12:51] LABS: CREATININE 0.9 mg/dL (0.55-1.3)
[2021-09-29 12:52] LABS: BILIRUBIN,TOTAL 0.5 mg/dL (0.2-1); TOT PROT 7.7 g/dl (6.4-8.2)
[2021-09-29] MEDS ORDERED: METOCLOPRAMIDE HCL INJECTION 10 MG/2 ML VIAL IVPB ONE (14:38)
[2021-09-29] MEDS ORDERED: METOCLOPRAMIDE HCL INJECTION 10 MG/2 ML VIAL ONE (14:41)
[2021-09-29 15:34] LABS: CALCIUM 8.6 mg/dL (8.5-10.1)
[2021-09-29 15:35] LABS: BLOOD UREA NITROGEN 20.7 mg/dL (7-18)
[2021-09-29 15:38] LABS: CREATININE 0.8 mg/dL (0.55-1.3)
[2021-09-29] MEDS ORDERED: TRIMETHOBENZAMIDE HCL 200MG/2ML INJ IM ONE ×2 (19:10→20:56)
[2021-09-29 19:18] LABS: EPI CELLS 1 /uL (0-25.1); HYALINE CASTS 0 /uL (0-3.1); PH,URINE 5.5 (5.0-8.0); URINE APPEARANCE CLEAR; URINE BACTERIA >9,000 /uL (0-1359); URINE BILIRUBIN NEGATIVE (NEGATIVE); URINE COLOR YELLOW; URINE GLUCOSE (UA) NEGATIVE (NEGATIVE); URINE KETONE NEGATIVE (NEGATIVE); URINE LEUK ESTERASE 1+ (NEGATIVE); URINE NITRITE NEGATIVE (NEGATIVE); URINE PROTEIN 1+ (NEGATIVE); URINE RBC 12 /uL (0-23.9); URINE UROBILINOGEN 0.2 mg/dL (0.2-1.0); URINE WBC 190 /uL (0-25.8)
[2021-09-29] MEDS ORDERED: CEFTRIAXONE 1 GM in DEXTROSE 5%-WATER - 100 ML IVPB ONE (19:51)
[2021-09-29] MEDS ORDERED: CEFTRIAXONE 1 GM/50 ML BAG ONE (20:57)
[2021-09-29] MEDS ORDERED: DOCUSATE SODIUM 100 MG CAPSULE (FP) PO PRN (22:14)
[2021-09-29] MEDS ORDERED: POLYETHYLENE GLYCOL 3350 255 GM BTL PO PRN (22:14)
[2021-09-29] MEDS ORDERED: POLYETHYLENE GLYCOL (HEALTHYLAX) 3350 17 GM PACKET PO PRN (22:36)
[2021-09-29] MEDS: DEXTROSE 5%-0.45% SALINE 1,000 ML IV SCH (23:49)
[2021-09-30] MEDS: ONDANSETRON 4 MG/2 ML VIAL IVPUSH PRN ×4 (04:28→21:45)
[2021-09-30] MEDS: INSULIN SLIDING SCALE (NOVOLOG) 1 VIAL SQ SCH ×4 (07:33→21:41)
[2021-09-30 08:33] LABS: BASO % 0.5 % (0-2.0); EOS % 0.4 % (0-4.5); HEMATOCRIT 32.7 % (32.4-45.2); HEMOGLOBIN 10.8 GM/dL (10.7-15.3); MCH 26.9 pg (25.7-33.7); MCHC 33.1 g/dl (32.0-36.0); MEAN CELL VOLUME 81.2 fl (80-96); MEAN PLT VOLUME 9.1 fl (7.5-11.1); MONO % 8.5 % (3.8-10.2); NEUT % 59.6 % (42.8-82.8); PLATELET COUNT 299 10^3/uL (134-434); RBC 4.03 M/mm3 (3.60-5.2); RDW 15.2 % (11.6-15.6); WHITE BLOOD COUNT 4.4 K/mm3 (4.0-10.0)
[2021-09-30] MEDS ORDERED: FLU VACC QS2021-22(6MOS UP)/PF 60 MCG/0.5 ML SYRINGE IM ONE (09:00)
[2021-09-30 09:04] LABS: ALBUMIN 3.2 g/dl (3.4-5.0); CALCIUM 9.1 mg/dL (8.5-10.1)
[2021-09-30 09:05] LABS: BLOOD UREA NITROGEN 12.5 mg/dL (7-18)
[2021-09-30 09:07] LABS: CREATININE 0.8 mg/dL (0.55-1.3)
[2021-09-30 09:09] LABS: BILIRUBIN,TOTAL 0.7 mg/dL (0.2-1)
[2021-09-30] MEDS ORDERED: CEFTRIAXONE 1 GM in DEXTROSE 5%-WATER - 50 ML IVPB SCH (10:00)
[2021-09-30] MEDS ORDERED: cefTRIAXone SODIUM 1 GM VIAL ONE (10:13)
[2021-09-30] MEDS ORDERED: DEXTROSE 5%-WATER - 50 ML IVPB ONE (10:13)
[2021-09-30] MEDS: ASPIRIN 81 MG CHEWABLE TABLETS PO SCH (10:24)
[2021-09-30] MEDS: LISINOPRIL 10 MG TABLET PO SCH (10:24)
[2021-09-30] MEDS: CLOPIDOGREL BISULFATE 75 MG TABLET (FP) PO SCH (10:24)
[2021-09-30] MEDS: amLODIPine BESYLATE 10 MG TABLET (FP) PO SCH (10:24)
[2021-09-30] MEDS: PANTOPRAZOLE 40 MG TABLET PO SCH (10:24)
[2021-09-30] MEDS ORDERED: ACETAMINOPHEN 325 MG TABLET (FP) PO PRN (12:55)
[2021-09-30] MEDS: ATORVASTATIN CA 80 MG TABLET (FP) PO SCH (21:39)
[2021-09-30] MEDS: DEXTROSE 5%-0.45% SALINE 1,000 ML IV SCH (21:42)
[2021-10-01] MEDS: ONDANSETRON 4 MG/2 ML VIAL IVPUSH PRN ×2 (02:48→10:01)
[2021-10-01] MEDS: INSULIN SLIDING SCALE (NOVOLOG) 1 VIAL SQ SCH ×4 (06:22→21:15)
[2021-10-01 08:35] LABS: BASO % 0.6 % (0-2.0); HEMOGLOBIN 10.3 GM/dL (10.7-15.3); LYMPH % 32.8 % (8-40); MCH 26.5 pg (25.7-33.7); MCHC 32.1 g/dl (32.0-36.0); MEAN CELL VOLUME 82.8 fl (80-96); MEAN PLT VOLUME 9.4 fl (7.5-11.1); MONO % 7.7 % (3.8-10.2); NEUT % 57.9 % (42.8-82.8); PLATELET COUNT 275 10^3/uL (134-434); RBC 3.86 M/mm3 (3.60-5.2); RDW 15.2 % (11.6-15.6)
[2021-10-01 09:00] LABS: ALBUMIN 2.7 g/dl (3.4-5.0); CALCIUM 8.7 mg/dL (8.5-10.1)
[2021-10-01 09:01] LABS: BLOOD UREA NITROGEN 16.6 mg/dL (7-18)
[2021-10-01 09:05] LABS: BILIRUBIN,TOTAL 0.4 mg/dL (0.2-1); TOT PROT 6.2 g/dl (6.4-8.2)
[2021-10-01] MEDS ORDERED: METOCLOPRAMIDE HCL INJECTION 10 MG/2 ML VIAL IVPB ONE (11:30)
[2021-10-01] MEDS: LISINOPRIL 10 MG TABLET PO SCH (12:55)
[2021-10-01] MEDS: amLODIPine BESYLATE 10 MG TABLET (FP) PO SCH (12:55)
[2021-10-01] MEDS: CLOPIDOGREL BISULFATE 75 MG TABLET (FP) PO SCH (12:55)
[2021-10-01] MEDS: ASPIRIN 81 MG CHEWABLE TABLETS PO SCH (12:55)
[2021-10-01] MEDS: PANTOPRAZOLE 40 MG TABLET PO SCH (12:56)
[2021-10-01] MEDS: DEXTROSE 5%-0.45% SALINE 1,000 ML IV SCH (12:56)
[2021-10-01] MEDS: METOCLOPRAMIDE HCL INJECTION 10 MG/2 ML VIAL IVPB SCH (18:04)
[2021-10-01] MEDS: ONDANSETRON 4 MG/2 ML VIAL IVPB SCH ×2 (18:47→21:15)
[2021-10-01] MEDS: ATORVASTATIN CA 80 MG TABLET (FP) PO SCH (21:15)
[2021-10-02] MEDS: ONDANSETRON 4 MG/2 ML VIAL IVPB SCH ×2 (01:31→05:59)
[2021-10-02] MEDS: DEXTROSE 5%-0.45% SALINE 1,000 ML IV SCH ×2 (02:22→02:30)
[2021-10-02] MEDS: METOCLOPRAMIDE HCL INJECTION 10 MG/2 ML VIAL IVPB SCH ×3 (02:23→17:44)
[2021-10-02] MEDS: INSULIN SLIDING SCALE (NOVOLOG) 1 VIAL SQ SCH ×4 (06:50→21:17)
[2021-10-02] MEDS: LISINOPRIL 10 MG TABLET PO SCH (09:25)
[2021-10-02] MEDS: amLODIPine BESYLATE 10 MG TABLET (FP) PO SCH (09:26)
[2021-10-02] MEDS: CLOPIDOGREL BISULFATE 75 MG TABLET (FP) PO SCH (09:26)
[2021-10-02] MEDS: ASPIRIN 81 MG CHEWABLE TABLETS PO SCH (09:26)
[2021-10-02] MEDS: PANTOPRAZOLE 40 MG TABLET PO SCH (09:26)
[2021-10-02] MEDS ORDERED: ONDANSETRON 4 MG/2 ML VIAL IVPB PRN (09:30)
[2021-10-02] MEDS ORDERED: FLU VACC QS2021-22(6MOS UP)/PF 60 MCG/0.5 ML SYRINGE IM ONE (15:16)
[2021-10-02] MEDS: metFORMIN HCL 500 MG TABLET (FP) PO SCH (17:41)
[2021-10-02] MEDS: ATORVASTATIN CA 80 MG TABLET (FP) PO SCH (21:10)
[2021-10-03] MEDS: METOCLOPRAMIDE HCL INJECTION 10 MG/2 ML VIAL IVPB SCH ×3 (01:30→18:27)
[2021-10-03] MEDS: metFORMIN HCL 500 MG TABLET (FP) PO SCH ×2 (06:04→17:52)
[2021-10-03] MEDS: INSULIN SLIDING SCALE (NOVOLOG) 1 VIAL SQ SCH ×4 (06:10→21:06)
[2021-10-03] MEDS: amLODIPine BESYLATE 10 MG TABLET (FP) PO SCH (09:21)
[2021-10-03] MEDS: PANTOPRAZOLE 40 MG TABLET PO SCH (09:21)
[2021-10-03] MEDS: LISINOPRIL 10 MG TABLET PO SCH (09:21)
[2021-10-03] MEDS: ASPIRIN 81 MG CHEWABLE TABLETS PO SCH (09:21)
[2021-10-03] MEDS: CLOPIDOGREL BISULFATE 75 MG TABLET (FP) PO SCH (09:21)
[2021-10-03] MEDS: INSULIN (LEVEMIR) 100 UNITS/ML UNITS SQ SCH ×2 (09:22→21:08)
[2021-10-03] MEDS: ATORVASTATIN CA 80 MG TABLET (FP) PO SCH (21:08)
[2021-10-04] MEDS: METOCLOPRAMIDE HCL INJECTION 10 MG/2 ML VIAL IVPB SCH ×2 (01:17→09:42)
[2021-10-04] MEDS: INSULIN (LEVEMIR) 100 UNITS/ML UNITS SQ SCH (06:19)
[2021-10-04] MEDS: metFORMIN HCL 500 MG TABLET (FP) PO SCH (06:20)
[2021-10-04] MEDS: INSULIN SLIDING SCALE (NOVOLOG) 1 VIAL SQ SCH ×2 (06:21→11:12)
[2021-10-04] MEDS: PANTOPRAZOLE 40 MG TABLET PO SCH (09:41)
[2021-10-04] MEDS: CLOPIDOGREL BISULFATE 75 MG TABLET (FP) PO SCH (09:42)
[2021-10-04] MEDS: LISINOPRIL 10 MG TABLET PO SCH (09:42)
[2021-10-04] MEDS: amLODIPine BESYLATE 10 MG TABLET (FP) PO SCH (09:42)
[2021-10-04] MEDS: ASPIRIN 81 MG CHEWABLE TABLETS PO SCH (09:42)
[2021-10-04 10:04] VITALS: BP 138/70; PULSE 68; TEMP 98.2
== END 2021-10-04 13:44 | disposition home or self-care (01) ==
LOC: JER 10:35 → JERBED 20:41 → UNDOADMOB 20:41 → INTOOBSV 20:41 → JERBED 09-30 00:16 → J5S 09-30 00:16 → JERBED 09-30 14:25
PROVIDERS: ADMIT Internal Medicine; ATTEND Internal Medicine
PROC: 3E03329 Introduction of Other Anti-infective into Peripheral Vein, Percutaneous Approach (ICD-10-PCS; principal; 2021-09-30)
PROC: 3E033GC Introduction of Other Therapeutic Substance into Peripheral Vein, Percutaneous Approach (ICD-10-PCS; 2021-09-30)
PROC: 3E0234Z Introduction of Serum, Toxoid and Vaccine into Muscle, Percutaneous Approach (ICD-10-PCS; 2021-09-30)
DX: I25.10 Atherosclerotic heart disease of native coronary artery without angina pectoris (principal); I11.9 Hypertensive heart disease without heart failure; E11.65 Type 2 diabetes mellitus with hyperglycemia; K27.9 Peptic ulcer, site unspecified, unspecified as acute or chronic, without hemorrhage or perforation; Z95.5 Presence of coronary angioplasty implant and graft; E11.622 Type 2 diabetes mellitus with other skin ulcer; E78.00 Pure hypercholesterolemia, unspecified; Z87.891 Personal history of nicotine dependence; I25.2 Old myocardial infarction; K21.9 Gastro-esophageal reflux disease without esophagitis; F41.8 Other specified anxiety disorders; E66.01 Morbid (severe) obesity due to excess calories; R11.10 Vomiting, unspecified; M62.81 Muscle weakness (generalized)
CPT/HCPCS: 36415; 71045-TC-FY; 74177-TC; 76700-TC; 76775-TC; 80048; 80053; 81003; 82962; 83036; 83690; 84484; 85025; 87086; 90686; 93005; 93010; 99285-25; C9803-CS; G0378; Q9967; U0003; U0005